=== PATIENT | male | born 1950 | race Caucasian/White ===

== ENCOUNTER 2017-06-10 15:13 | Inpatient (IN) | payer MEDICAID, MEDICARE ==
[~2017-06-10] VITALS: Ht 157.5 cm; Wt 90.7 kg
[~2017-06-10 15:13] MED LIST: BACITRACIN1 APPLIC TOPIC; BENADRYL50 MG ORAL; HYDROCORTISONE30 G2 TOPIC; IBUPROFEN600 MG PO; NYSTATIN CREAM15 GM TOPIC; PREDNISONE20 MG ORAL; VICODIN 5-5001 EACH PO
[2017-06-10 18:27] VITALS: BP 117/82
[2017-06-10 18:34] LABS: BASOPHILS % (AUTO) 0.4 % (0.0-2.0); EOSINOPHILS % (AUTO) 0.7 % (0.0-3.0); HEMATOCRIT 42.8 % (42.0-52.0); HEMOGLOBIN 14.5 G/DL (14.2-18.0); LYMPHOCYTES % (AUTO) 12.3 % (20.0-45.0); MEAN CORPUSCULAR VOLUME 93 FL (80-99); MONOCYTES % (AUTO) 6.1 % (1.0-10.0); NEUTROPHILS % (AUTO) 80.5 % (45.0-75.0); PLATELET COUNT 210 K/UL (150-450); RED BLOOD COUNT 4.58 M/UL (4.70-6.10); RED CELL DISTRIBUTION WIDTH 13.2 % (11.6-14.8); WHITE BLOOD COUNT 9.4 K/UL (4.8-10.8)
[2017-06-10 18:51] LABS: ANION GAP 7 mmol/L (5-15); BLOOD UREA NITROGEN 36 mg/dL (7-18); CALCIUM 8.1 MG/DL (8.5-10.1); CARBON DIOXIDE 27 MMOL/L (21-32); CHLORIDE 97 MMOL/L (98-107); POTASSIUM 5.2 MMOL/L (3.5-5.1); SODIUM 131 MMOL/L (136-145)
[2017-06-10] MEDS ORDERED: D5NS 1,000 ML IV SCH (19:00)
[2017-06-10 19:04] LABS: ALANINE AMINOTRANSFERASE 20 U/L (12-78); ALBUMIN 3.7 G/DL (3.4-5.0); ALBUMIN/GLOBULIN RATIO 0.9 (1.0-2.7); ALKALINE PHOSPHATASE 92 U/L (46-116); ASPARTATE AMINO TRANSFERASE 21 U/L (15-37); BILIRUBIN,TOTAL 0.6 MG/DL (0.2-1.0); CKMB 3.3 NG/ML (0.0-3.6); CREATINE KINASE 205 U/L (26-308)
[2017-06-10 19:40] VITALS: BP 118/62
[2017-06-10 21:25] VITALS: BP 123/68
--- NOTE | 2017-06-10 21:36 | Emergency Room Report ---
History of Present Illness General Chief Complaint: Abnormal Labs Source: Patient, EMS Present Illness HPI 66-year-old male presents ED for evaluation. Per EMS patient's Accu-Chek was low in the 30s. Was given glucose by EMS with Accu-Chek improved. In triage they Accu-Chek was then again low in the 50s. Patient states he is a diabetic and takes metformin. States he's been eating normally. No change in dosages. States he feels weak. Denies chest pain or shortness of breath. Denies fevers or chills. No other aggravating or relieving factors. Denies any other associated symptoms Allergies: Coded Allergies: No Known Allergies (Unverified , 12/26/12) Patient History Past Medical History: DM, HTN Past Surgical History: none Pertinent Family History: none Social History: Denies: smoking, alcohol use, drug use Immunizations: UTD Reviewed Nursing Documentation: PMH: Agreed, PSxH: Agreed Nursing Documentation-PMH Hx Cardiac Problems: Yes Hx Hypertension: Yes Hx Diabetes: Yes Hx Cerebrovascular Accident: No - CONFUSION Review of Systems All Other Systems: negative except mentioned in HPI Physical Exam Vital Signs Date Time Temp Pulse Resp B/P (MAP) Pulse Ox O2 Delivery O2 Flow Rate FiO2 06/10/17 15:08 97.2 60 18 131/75 98 Room Air Sp02 EP Interpretation: reviewed, normal General Appearance: no apparent distress, alert, GCS 15, non-toxic Head: normocephalic, atraumatic Eyes: bilateral eye normal inspection, bilateral eye PERRL ENT: hearing grossly normal, normal pharynx, no angioedema, normal voice Neck: full range of motion, supple/symm/no masses Respiratory: chest non-tender, lungs clear, normal breath sounds, speaking full sentences Cardiovascular #1: regular rate, rhythm, no edema Cardiovascular #2: 2+ carotid (R), 2+ carotid (L), 2+ radial (R), 2+ radial (L) , 2+ dorsalis pedis (R), 2+ dorsalis pedis (L) Gastrointestinal: normal bowel sounds, non tender, soft, non-distended, no guarding, no rebound Rectal: deferred Genitourinary: normal inspection, no CVA tenderness Musculoskeletal: back normal, gait/station normal, normal range of motion, non- tender Neurologic: alert, oriented x3, responsive, motor strength/tone normal, sensory intact, speech normal Psychiatric: judgement/insight normal, memory normal, mood/affect normal, no suicidal/homicidal ideation Reflexes: 3+ bicep (R), 3+ bicep (L), 3+ tricep (R), 3+ tricep (L), 3+ knee (R) , 3+ knee (L) Skin: normal color, no rash, warm/dry, well hydrated Lymphatic: no adenopathy Medical Decision Making Diagnostic Impression: Primary Impression: Hypoglycemia Additional Impression: Renal insufficiency ER Course Hospital Course 66-year-old female presenting to ED with generalized weakness, low FS in field Differential diagnoses include: dehyration, sepsis, hypoglycemia Clinical course Patient placed on stretcher. On monitor and storage bin tender. After initial history and physical I ordered labs, d50 Labs-glucose 54, BUN/Cr elevated, no leukocytosis, hb/hct stable Patient continues to become hypoglycemic after administration of medications and food. Patient started on D5 IV fluids. Case discussed with Dr. Funk and he agreed to accept the patient to his service for further care and support i. I feel this is a highly complex case requiring extensive working including EKG/Rhythm strip, Xray/CT/US, Blood/urine lab work, repeat exams while in ED, and administration of strong opiates/narcotics for pain control, admission to hospital or close patient follow up. diagnosis - hypoglycemia, renal insufficiency admitted to floor in serious condition Labs Test 06/10/17 18:20 White Blood Count 9.4 K/UL (4.8-10.8) Red Blood Count 4.58 M/UL (4.70-6.10) Hemoglobin 14.5 G/DL (14.2-18.0) Hematocrit 42.8 % (42.0-52.0) Mean Corpuscular Volume 93 FL (80-99) Mean Corpuscular Hemoglobin 31.6 PG (27.0-31.0) Mean Corpuscular Hemoglobin Concent 33.9 G/DL (32.0-36.0) Red Cell Distribution Width 13.2 % (11.6-14.8) Platelet Count 210 K/UL (150-450) Mean Platelet Volume 7.6 FL (6.5-10.1) Neutrophils (%) (Auto) 80.5 % (45.0-75.0) Lymphocytes (%) (Auto) 12.3 % (20.0-45.0) Monocytes (%) (Auto) 6.1 % (1.0-10.0) Eosinophils (%) (Auto) 0.7 % (0.0-3.0) Basophils (%) (Auto) 0.4 % (0.0-2.0) Sodium Level 131 MMOL/L (136-145) Potassium Level 5.2 MMOL/L (3.5-5.1) Chloride Level 97 MMOL/L (98-107) Carbon Dioxide Level 27 MMOL/L (21-32) Anion Gap 7 mmol/L (5-15) Blood Urea Nitrogen 36 mg/dL (7-18) Creatinine 2.0 MG/DL (0.55-1.30) Estimat Glomerular Filtration Rate 33.7 mL/min (>60) Glucose Level 54 MG/DL (74-106) Calcium Level 8.1 MG/DL (8.5-10.1) Total Bilirubin 0.6 MG/DL (0.2-1.0) Aspartate Amino Transf (AST/SGOT) 21 U/L (15-37) Alanine Aminotransferase (ALT/SGPT) 20 U/L (12-78) Alkaline Phosphatase 92 U/L (46-116) Total Creatine Kinase 205 U/L (26-308) Creatine Kinase MB 3.3 NG/ML (0.0-3.6) Creatine Kinase MB Relative Index 1.6 Troponin I 0.000 ng/mL (0.000-0.056) Total Protein 7.8 G/DL (6.4-8.2) Albumin 3.7 G/DL (3.4-5.0) Globulin 4.1 g/dL Albumin/Globulin Ratio 0.9 (1.0-2.7) EKG Diagnostic Results Rate: bradycardiac Rhythm: NSR ST Segments: no acute changes ASA given to the pt in ED: No Rhythm Strip Diag. Results EP Interpretation: yes Rhythm: NSR, no PVC's, no ectopy Chest X-Ray Diagnostic Results Chest X-Ray Diagnostic Results : Chest X-Ray Ordered: Yes # of Views/Limited/Complete: 1 View Indication: Other EP Interpretation: Yes Interpretation: no consolidation, no effusion, no pneumothorax, no acute cardiopulmonary disease Impression: No acute disease Electronically Signed by: Electronically signed by Celso Escalona MD Last Vital Signs Date Time Temp Pulse Resp B/P (MAP) Pulse Ox O2 Delivery O2 Flow Rate FiO2 06/10/17 21:25 60 14 123/68 100 Room Air 06/10/17 19:40 97.0 Status: improved Disposition: ADMITTED INPATIENT Condition: Serious Referrals: JOSE COOLEY (PCP) CELSO ESCALONA M.D. Jun 10, 2017 21:36
[2017-06-10] MEDS ORDERED: METFORMIN HCL850 M1 ORAL (22:15)
[2017-06-10] MEDS ORDERED: UNOBMED (22:15)
[2017-06-10] MEDS: D5NS 1,000 ML IV SCH (23:12)
[2017-06-11] VITALS (7 sets, daily range): BP systolic 100–132; BP diastolic 55–76
[2017-06-11] MEDS ORDERED: Zolpidem 5mg tab ORAL PRN (02:45)
[2017-06-11] MEDS: D5NS 1,000 ML IV SCH ×2 (02:59→15:09)
[2017-06-11] MEDS: NovoLOG Insulin Flexpen SUBQ SCH ×4 (06:25→20:23)
[2017-06-11 07:36] LABS: BASOPHILS % (AUTO) 0.2 % (0.0-2.0); EOSINOPHILS % (AUTO) 1.1 % (0.0-3.0); HEMATOCRIT 36.5 % (42.0-52.0); HEMOGLOBIN 12.4 G/DL (14.2-18.0); LYMPHOCYTES % (AUTO) 11.9 % (20.0-45.0); MEAN CORPUSCULAR VOLUME 92 FL (80-99); MONOCYTES % (AUTO) 7.2 % (1.0-10.0); NEUTROPHILS % (AUTO) 79.7 % (45.0-75.0); PLATELET COUNT 204 K/UL (150-450); RED BLOOD COUNT 3.95 M/UL (4.70-6.10); RED CELL DISTRIBUTION WIDTH 13.2 % (11.6-14.8); WHITE BLOOD COUNT 8.4 K/UL (4.8-10.8)
[2017-06-11 07:38] LABS: ANION GAP 6 mmol/L (5-15); BLOOD UREA NITROGEN 33 mg/dL (7-18); CALCIUM 7.5 MG/DL (8.5-10.1); CARBON DIOXIDE 29 MMOL/L (21-32); CHLORIDE 97 MMOL/L (98-107); CREATININE 1.7 MG/DL (0.55-1.30); POTASSIUM 4.3 MMOL/L (3.5-5.1); SODIUM 132 MMOL/L (136-145)
[2017-06-11] MEDS: Heparin 5000 units/ml inj SUBQ SCH ×2 (08:38→20:24)
--- NOTE | 2017-06-11 09:26 | History & Physical ---
History and Physical History & Physicial 66-year-old male presents with hypoglycemia with blood sugars down to the 30s. Was given glucose but blood sugars remained low. Patient states he is a diabetic and takes metformin and has been eating normally. No change in dosages at present time. States he feels weak on arrival but now improved. Denies chest pain or shortness of breath. Denies fevers or chills. No other aggravating or relieving factors. Denies any other associated symptoms. No recent acute illness Allergies: No Known Allergies (Unverified , 12/26/12) Past Medical History: DM, HTN Past Surgical History: none Pertinent Family History: none Social History: Denies: smoking, alcohol use, drug use Reviewed of systems: as above Physical WDWN NAD clear breath sounds bilaterally without rhonchi or wheeze [id number] without MRG NABS nontender no HSM no CCE nonfocal chronic skin changes and scratches Laboratory Tests Test 06/10/17 18:20 06/11/17 05:10 White Blood Count 9.4 K/UL (4.8-10.8) 8.4 K/UL (4.8-10.8) Red Blood Count 4.58 M/UL (4.70-6.10) L 3.95 M/UL (4.70-6.10) L Hemoglobin 14.5 G/DL (14.2-18.0) 12.4 G/DL (14.2-18.0) L Hematocrit 42.8 % (42.0-52.0) 36.5 % (42.0-52.0) L Mean Corpuscular Volume 93 FL (80-99) 92 FL (80-99) Mean Corpuscular Hemoglobin 31.6 PG (27.0-31.0) H 31.3 PG (27.0-31.0) H Mean Corpuscular Hemoglobin Concent 33.9 G/DL (32.0-36.0) 33.9 G/DL (32.0-36.0) Red Cell Distribution Width 13.2 % (11.6-14.8) 13.2 % (11.6-14.8) Platelet Count 210 K/UL (150-450) 204 K/UL (150-450) Mean Platelet Volume 7.6 FL (6.5-10.1) 7.9 FL (6.5-10.1) Neutrophils (%) (Auto) 80.5 % (45.0-75.0) H 79.7 % (45.0-75.0) H Lymphocytes (%) (Auto) 12.3 % (20.0-45.0) L 11.9 % (20.0-45.0) L Monocytes (%) (Auto) 6.1 % (1.0-10.0) 7.2 % (1.0-10.0) Eosinophils (%) (Auto) 0.7 % (0.0-3.0) 1.1 % (0.0-3.0) Basophils (%) (Auto) 0.4 % (0.0-2.0) 0.2 % (0.0-2.0) Sodium Level 131 MMOL/L (136-145) L 132 MMOL/L (136-145) L Potassium Level 5.2 MMOL/L (3.5-5.1) H 4.3 MMOL/L (3.5-5.1) Chloride Level 97 MMOL/L (98-107) L 97 MMOL/L (98-107) L Carbon Dioxide Level 27 MMOL/L (21-32) 29 MMOL/L (21-32) Anion Gap 7 mmol/L (5-15) 6 mmol/L (5-15) Blood Urea Nitrogen 36 mg/dL (7-18) H 33 mg/dL (7-18) H Creatinine 2.0 MG/DL (0.55-1.30) H 1.7 MG/DL (0.55-1.30) H Estimat Glomerular Filtration Rate 33.7 mL/min (>60) 40.7 mL/min (>60) Glucose Level 54 MG/DL (74-106) L 47 MG/DL (74-106) L Calcium Level 8.1 MG/DL (8.5-10.1) L 7.5 MG/DL (8.5-10.1) L Total Bilirubin 0.6 MG/DL (0.2-1.0) Aspartate Amino Transf (AST/SGOT) 21 U/L (15-37) Alanine Aminotransferase (ALT/SGPT) 20 U/L (12-78) Alkaline Phosphatase 92 U/L (46-116) Total Creatine Kinase 205 U/L (26-308) Creatine Kinase MB 3.3 NG/ML (0.0-3.6) Creatine Kinase MB Relative Index 1.6 Troponin I 0.000 ng/mL (0.000-0.056) Total Protein 7.8 G/DL (6.4-8.2) Albumin 3.7 G/DL (3.4-5.0) Globulin 4.1 g/dL Albumin/Globulin Ratio 0.9 (1.0-2.7) L IMPRESSION hypoglycemia diabetes hypertension chronic pruritis dizziness PLAN d5ns hold diabetic meds monitor as is resume home meds impression, plan, and exam edited and reviewed in detail care discussed with SONAL SORIA Jun 11, 2017 09:26
--- NOTE | 2017-06-11 11:55 | Diagnostic Imaging Report ---
Indication: Altered mental status Technique: XRAY Chest 1v Comparison: None Findings: Low lung volumes artifactually exaggerate heart size and vascular markings. Despite low lung volumes heart may be borderline enlarged. There is evidence of prior coronary arterial stenting. There is no definite focal consolidation. No pleural effusion. No pneumothorax. Multilevel degenerative changes seen in the thoracic spine. No acute osseous abnormality seen. Impression: Limited exam as low lung volumes. Question mild cardiomegaly and pulmonary vascular congestion. Consider repeat exam with improved inspiratory effort for more a labral assessment. Evidence of prior coronary arterial stenting. No definite focal consolidation. Study obtained via the emergency department however patient admitted to the hospital at time of final dictation.
[2017-06-11] MEDS ORDERED: D5NS 1,000 ML IV SCH (19:00)
[2017-06-12] VITALS: BP 128/73
[2017-06-12] MEDS: D5NS 1,000 ML IV SCH ×2 (01:18→14:45)
[2017-06-12 04:00] VITALS: BP 145/98
[2017-06-12] MEDS: NovoLOG Insulin Flexpen SUBQ SCH ×2 (06:22→11:30)
[2017-06-12 08:00] VITALS: BP 135/71
[2017-06-12] MEDS: Heparin 5000 units/ml inj SUBQ SCH (08:11)
--- NOTE | 2017-06-12 08:51 | General Progress Note ---
Assessment/Plan Assessment/Plan IMPRESSION hypoglycemia diabetes hypertension chronic pruritis dizziness PLAN d5ns- dc hold diabetic meds on discharge arrange transport monitor as is dc today if able to ambulate adequately with home health impression, plan, and exam edited and reviewed in detail care discussed with RN Subjective Allergies: Coded Allergies: No Known Allergies (Unverified , 12/26/12) Subjective care noted no acute changes overnight Objective Last 24 Hour Vital Signs Date Time Temp Pulse Resp B/P (MAP) Pulse Ox O2 Delivery O2 Flow Rate FiO2 06/12/17 04:00 98.0 78 21 145/98 96 06/12/17 04:00 Room Air 06/12/17 02:37 97.9 06/12/17 00:00 97.9 78 21 128/73 97 06/12/17 00:00 Room Air 06/11/17 20:00 97.9 74 20 119/65 95 Room Air 06/11/17 20:00 Room Air 06/11/17 16:00 97.7 74 20 132/74 96 Room Air 06/11/17 12:00 97.7 76 20 125/74 98 Room Air Intake and Output 06/11/17 06/12/17 19:00 07:00 Intake Total 1550 ml 1300 ml Balance 1550 ml 1300 ml Intake Oral 750 ml 100 ml IV Total 800 ml 1200 ml # Voids 3 4 Height (Feet): 5 Height (Inches): 2.00 Weight (Pounds): 200 Objective WDWN NAD clear breath sounds bilaterally without rhonchi or wheeze [id number] without MRG NABS nontender no HSM no CCE nonfocal chronic skin changes SONAL MILLER Jun 12, 2017 08:51
[2017-06-12 12:00] VITALS: BP 137/82
[2017-06-12] MEDS ORDERED: D5 1/2NS 1000ml IV ONE (14:36)
[2017-06-12] MEDS ORDERED: D5NS 1000ml IV ONE (14:36)
[2017-06-12 16:00] VITALS: BP 158/100
--- NOTE | 2017-06-13 14:56 | Discharge Summary ---
Discharge Summary Hospital Course Date of Admission Jun 10, 2017 at 18:11 Date of Discharge Jun 12, 2017 at 16:00 Admitting Diagnosis hypoglycemia HPI Adrián Mg is a 67 year old male who was admitted on Jun 10, 2017 at 18:11 for Hypoglycemia Hospital Course dc summary #[id number] Discharge Medications Continued Medications: Diphenhydramine HCl (Diphenhydramine HCl) 50 Mg Cap 50 MG ORAL Q6H PRN for Itching, #30 CAP Discharge Discharge Disposition Patient was discharged to Home with Home Health(06) Discharge Diagnoses: Discharge Instructions Discharge Instructions Special Instructions I have been assigned to complete a D/C Summary on this account. I was not involved in the patient management Petrona Bejarano NP ([facility]) Jun 13, 2017 14:56
--- NOTE | 2017-06-14 04:45 | Discharge Summary 2 SIG ---
DATE OF ADMISSION: 06/10/2017 DATE OF DISCHARGE: 06/12/2017 REASON FOR ADMISSION: 67-year-old male presented to the emergency room for evaluation. Per condenser tube tender Accu-Chek was low in the 30s in the field. Glucose was given by paramedics. Accu-Chek improved. In triage, blood sugar was again down to 50s. The patient reported that he had a history of diabetes and he was taking metformin. The patient did not report any recent changes in eating habits. No change in dosage in anti- glycemic medications. He felt weak, no diaphoresis. He denied chest pain or shortness of breath. Denied fever or chills. Workup in the emergency room revealed stable vital signs. No leukocytosis. Stable hemoglobin and hematocrit. Glucose was 54 and laboratory workup revealed evidence of renal insufficiency with BUN - 36 and creatinine - 2.0. Troponin negative. EKG revealed sinus bradycardia with a heart rate of 58. Chest x-ray revealed no acute cardiopulmonary disease. The patient was admitted for further management with diagnoses of hypoglycemia, history of diabetes, renal insufficiency, hypertension, and chronic pruritus. HOSPITAL COURSE: The patient was admitted. The patient started on IV fluids wit dextrose. Oral anti-glycemics were placed on hold. Renal parameters and electrolytes were closely monitored. Nephrotoxics were avoided. Home medications were resumed. Blood pressure was managed with clonidine on as needed basis. Prior to discharge, blood sugar stabilized. Blood pressure was stable. Creatinine down to 1.7 from initial 2.0. BUN down to 33. The patient needs further workup as outpatient for renal insufficiency, acute versus chronic. Hyperkalemia (initially -) resolved after treatment. Troponin was negative. DVT prophylaxis provided. GI prophylaxis provided. Bowel regimen instituted. Benadryl was given symptomatically. The patient was stable for discharge. FINAL DIAGNOSES: 1. Hypoglycemia. 2. Renal insufficiency. 3. Diabetes mellitus. 4. Hypertension. 5. Chronic pruritus. DISCHARGE MEDICATIONS: See medication reconciliation list. DISCHARGE INSTRUCTIONS: The patient was discharged home with home health services. Follow up with primary medical doctor this week. Boston Morse M.D. I have been assigned to dictate discharge summary on this account and I was not involved in the patient's management. Petrona TejadaAudi malone DR: RAKESH JOB#: [id number] CC: JACK
--- NOTE | 2017-06-14 19:27 | Cardiology Report ---
APPROVED REPORT EKG Measurement Heart [id number] Sinus bradycardia Low voltage QRS Borderline ECG
== END 2017-06-12 16:00 | disposition home health service (06) | DRG 420 ==
LOC: EDBD 15:13 → EMR 15:45 → OBSVTOIN 18:11 → 4E 18:11 → EDBEDREQ 19:19 → 4E 06-11 20:25
DX: E11.649 Type 2 diabetes mellitus with hypoglycemia without coma (principal); N28.9 Disorder of kidney and ureter, unspecified; I10 Essential (primary) hypertension; L29.9 Pruritus, unspecified; Z79.84 Long term (current) use of oral hypoglycemic drugs; R41.0 Disorientation, unspecified
CPT/HCPCS: 36415; 71010; 80048; 80053; 82550; 82553; 82962; 84484; 85025; 93005; 96360; 96361; 96374; 99285; J1815; J2405

== ENCOUNTER 2018-12-23 22:35 | Inpatient (IN) | payer MEDICARE, MEDICAID ==
[~2018-12-23] VITALS: Ht 167.6 cm; Wt 65.8 kg
[~2018-12-23 22:35] MED LIST changes: +METFORMIN HCL850 M1 ORAL; +UNOBMED
[2018-12-23] MEDS ORDERED: CICLOPIROX 8%34.6 ML TP (22:44)
[2018-12-23] MEDS ORDERED: JENTADUETO 2.51 EAC2 PO (22:44)
[2018-12-23] MEDS ORDERED: DOCUSATE SODIU250 MG ORAL (22:44)
[2018-12-23] MEDS ORDERED: CLOPIDOGREL75 MG ORAL (22:44)
[2018-12-23] MEDS ORDERED: MAPAP500 M2 PO (22:44)
[2018-12-23] MEDS ORDERED: FLUTICASONE PRO16 G1 NASAL (22:44)
[2018-12-23] MEDS ORDERED: INVOKANA100 MG PO (22:44)
[2018-12-23] MEDS ORDERED: METOPROLOL SUCC50 MG ORAL (22:44)
[2018-12-23] MEDS ORDERED: FLOMAX0.4 MG ORAL (22:44)
[2018-12-23] MEDS ORDERED: TRAZODONE HCL150 MG ORAL (22:44)
[2018-12-23] MEDS ORDERED: CLOTRIMAZOLE15 GM TOPIC (22:44)
[2018-12-23] MEDS ORDERED: LINZESS290 MCG PO (22:44)
[2018-12-23] MEDS ORDERED: ABILIFY10 MG ORAL (22:44)
[2018-12-23] MEDS ORDERED: GLIPIZIDE5 MG ORAL (22:44)
[2018-12-23] MEDS ORDERED: ATORVASTATIN CA40 MG ORAL (22:44)
[2018-12-23] MEDS ORDERED: URECHOLINE25 M1 ORAL (22:44)
[2018-12-23] MEDS ORDERED: BISACODYL5 MG ORAL (22:44)
[2018-12-23] MEDS ORDERED: LISINOPRIL20 MG ORAL (22:44)
[2018-12-23] MEDS ORDERED: ZANTAC150 MG ORAL (22:44)
[2018-12-23] MEDS ORDERED: PHENAZOPYRIDIN200 MG ORAL (22:44)
[2018-12-23] MEDS ORDERED: MELATONIN5 MG/15 ML PO (22:44)
--- NOTE | 2018-12-23 22:47 | NUR ---
ED Nurse Note: Patient presents with complaints of cough and sore throat along with headache.
[2018-12-23 22:48] VITALS: BP 149/73
--- NOTE | 2018-12-23 23:21 | Emergency Room Report ---
History of Present Illness General Chief Complaint: Flu Like Symptoms Source: Patient Present Illness HPI Patient presents from nursing facility with complaints of cough and congestion Patient was reported to be short of breath over the past several days Denies any headache denies any chest pain Unknown regarding fevers patient denies any rash Appears to be somewhat debilitated having difficulty moving his lower extremities Denies any recent trauma Allergies: Coded Allergies: No Known Allergies (Unverified , 12/26/12) Patient History Past Medical History: see triage record Reviewed Nursing Documentation: PMH: Agreed; PSxH: Agreed Nursing Documentation-PMH Past Medical History: No History, Except For Hx Cardiac Problems: Yes Hx Hypertension: Yes Hx Diabetes: Yes Hx Cancer: No Hx Gastrointestinal Problems: Yes - vomiting Hx Cerebrovascular Accident: No - CONFUSION Review of Systems All Other Systems: negative except mentioned in HPI Physical Exam Vital Signs Date Time Temp Pulse Resp B/P (MAP) Pulse Ox O2 Delivery O2 Flow Rate FiO2 12/23/18 22:31 100.2 96 16 149/73 (98) 94 Room Air Sp02 EP Interpretation: reviewed, normal General Appearance: well appearing, no apparent distress Head: atraumatic, other - microcephalic Eyes: bilateral eye PERRL, bilateral eye EOMI ENT: hearing grossly normal, normal pharynx, TMs + canals normal, uvula midline Neck: full range of motion, supple, no meningismus, no bony tend Respiratory: no respiratory distress, no retraction, no accessory muscle use, crackles - bilaterally Cardiovascular #1: normal peripheral pulses, regular rate, rhythm, no gallop, no JVD, no murmur Gastrointestinal: normal bowel sounds, non tender, soft, no mass, no organomegaly, non-distended, no guarding, no hernia, no pulsatile mass, no rebound Genitourinary: no CVA tenderness Musculoskeletal: other - Equal diamond die polisher both upper extremity Neurologic: responsive - To physical stimuli, sensory intact Psychiatric: mood/affect normal Skin: no rash, other - Edema however noted on both hands lower lip and both lower extremity Lymphatic: normal inspection, no adenopathy Medical Decision Making Diagnostic Impression: Primary Impression: Dyspnea ER Course Patient is a fairly complex patient with multiple differential to consideration including but not limited to cardiac cardiopulmonary and vascular emergencies Patient's x-ray shows abnormal findings given the clinical history of edema as well consideration for CHF is made Patient does also have a cough and fever raising concern of possible infectious etiology patient has a mixed picture requires more acute intervention and admitted for further care Labs Test 12/24/18 00:51 12/24/18 01:41 12/24/18 06:14 12/25/18 06:20 White Blood Count 10.3 K/UL (4.8-10.8) 7.1 K/UL (4.8-10.8) Red Blood Count 2.87 M/UL (4.70-6.10) 2.83 M/UL (4.70-6.10) Hemoglobin 9.1 G/DL (14.2-18.0) 8.9 G/DL (14.2-18.0) Hematocrit 27.2 % (42.0-52.0) 27.3 % (42.0-52.0) Mean Corpuscular Volume 95 FL (80-99) 96 FL (80-99) Mean Corpuscular Hemoglobin 31.6 PG (27.0-31.0) 31.5 PG (27.0-31.0) Mean Corpuscular Hemoglobin Concent 33.4 G/DL (32.0-36.0) 32.7 G/DL (32.0-36.0) Red Cell Distribution Width 12.4 % (11.6-14.8) 12.6 % (11.6-14.8) Platelet Count 194 K/UL (150-450) 168 K/UL (150-450) Mean Platelet Volume 5.5 FL (6.5-10.1) 6.6 FL (6.5-10.1) Neutrophils (%) (Auto) 83.9 % (45.0-75.0) 71.3 % (45.0-75.0) Lymphocytes (%) (Auto) 7.7 % (20.0-45.0) 16.0 % (20.0-45.0) Monocytes (%) (Auto) 7.7 % (1.0-10.0) 10.6 % (1.0-10.0) Eosinophils (%) (Auto) 0.2 % (0.0-3.0) 1.2 % (0.0-3.0) Basophils (%) (Auto) 0.4 % (0.0-2.0) 0.9 % (0.0-2.0) Sodium Level 134 MMOL/L (136-145) 135 MMOL/L (136-145) 138 MMOL/L (136-145) Potassium Level 3.7 MMOL/L (3.5-5.1) 3.6 MMOL/L (3.5-5.1) 3.5 MMOL/L (3.5-5.1) Chloride Level 96 MMOL/L (98-107) 99 MMOL/L (98-107) 99 MMOL/L (98-107) Carbon Dioxide Level 30 MMOL/L (21-32) 31 MMOL/L (21-32) 32 MMOL/L (21-32) Anion Gap 8 mmol/L (5-15) 5 mmol/L (5-15) 7 mmol/L (5-15) Blood Urea Nitrogen 21 mg/dL (7-18) 21 mg/dL (7-18) 16 mg/dL (7-18) Creatinine 2.9 MG/DL (0.55-1.30) 3.1 MG/DL (0.55-1.30) 2.8 MG/DL (0.55-1.30) Estimat Glomerular Filtration Rate 21.8 mL/min (>60) 20.2 mL/min (>60) 22.7 mL/min (>60) Glucose Level 238 MG/DL (74-106) 237 MG/DL (74-106) 138 MG/DL (74-106) Lactic Acid Level 1.50 mmol/L (0.4-2.0) Calcium Level 8.1 MG/DL (8.5-10.1) 8.4 MG/DL (8.5-10.1) 8.5 MG/DL (8.5-10.1) Total Bilirubin 0.6 MG/DL (0.2-1.0) 0.6 MG/DL (0.2-1.0) Aspartate Amino Transf (AST/SGOT) 25 U/L (15-37) 19 U/L (15-37) Alanine Aminotransferase (ALT/SGPT) 23 U/L (12-78) 21 U/L (12-78) Alkaline Phosphatase 141 U/L (46-116) 125 U/L (46-116) Total Creatine Kinase 264 U/L (26-308) Creatine Kinase MB 0.7 NG/ML (0.0-3.6) Creatine Kinase MB Relative Index 0.2 Troponin I 0.011 ng/mL (0.000-0.056) 0.015 ng/mL (0.000-0.056) Pro-B-Type Natriuretic Peptide 2769 pg/mL (0-125) 3383 pg/mL (0-125) Total Protein 6.2 G/DL (6.4-8.2) 6.6 G/DL (6.4-8.2) Albumin 3.5 G/DL (3.4-5.0) 3.0 G/DL (3.4-5.0) Globulin 2.7 g/dL 3.6 g/dL Albumin/Globulin Ratio 1.3 (1.0-2.7) 0.8 (1.0-2.7) Lipase 68 U/L (73-393) Urine Color Pale yellow Urine Appearance Slightly cloudy Urine pH 6 (4.5-8.0) Urine Specific Proctor 1.015 (1.005-1.035) Urine Protein 2+ (NEGATIVE) Urine Glucose (UA) Negative (NEGATIVE) Urine Ketones Negative (NEGATIVE) Urine Blood 2+ (NEGATIVE) Urine Nitrite Positive (NEGATIVE) Urine Bilirubin Negative (NEGATIVE) Urine Urobilinogen Normal MG/DL (0.0-1.0) Urine Leukocyte Esterase 2+ (NEGATIVE) Urine RBC 20-30 /HPF (0 - 0) Urine WBC 10-15 /HPF (0 - 0) Urine Squamous Epithelial Cells None /LPF (NONE/OCC) Urine Bacteria Moderate /HPF (NONE) Hepatitis B Surface Antigen Negative (NEGATIVE) Test 12/26/18 05:46 White Blood Count 4.3 K/UL (4.8-10.8) Red Blood Count 2.74 M/UL (4.70-6.10) Hemoglobin 8.7 G/DL (14.2-18.0) Hematocrit 26.5 % (42.0-52.0) Mean Corpuscular Volume 97 FL (80-99) Mean Corpuscular Hemoglobin 31.7 PG (27.0-31.0) Mean Corpuscular Hemoglobin Concent 32.9 G/DL (32.0-36.0) Red Cell Distribution Width 12.4 % (11.6-14.8) Platelet Count 158 K/UL (150-450) Mean Platelet Volume 6.5 FL (6.5-10.1) Neutrophils (%) (Auto) 60.9 % (45.0-75.0) Lymphocytes (%) (Auto) 19.6 % (20.0-45.0) Monocytes (%) (Auto) 14.1 % (1.0-10.0) Eosinophils (%) (Auto) 4.0 % (0.0-3.0) Basophils (%) (Auto) 1.3 % (0.0-2.0) Sodium Level 138 MMOL/L (136-145) Potassium Level 3.3 MMOL/L (3.5-5.1) Chloride Level 99 MMOL/L (98-107) Carbon Dioxide Level 33 MMOL/L (21-32) Anion Gap 6 mmol/L (5-15) Blood Urea Nitrogen 24 mg/dL (7-18) Creatinine 3.5 MG/DL (0.55-1.30) Estimat Glomerular Filtration Rate 17.6 mL/min (>60) Glucose Level 109 MG/DL (74-106) Calcium Level 8.0 MG/DL (8.5-10.1) Rhythm Strip Diag. Results EP Interpretation: yes Rate: 78 Rhythm: NSR, no PVC's, no ectopy Chest X-Ray Diagnostic Results Chest X-Ray Diagnostic Results : Chest X-Ray Ordered: Yes # of Views/Limited/Complete: 1 View Indication: Shortness of Breath EP Interpretation: Yes Interpretation: no pneumothorax, other - Pulmonary congestion, question infiltrate, Impression: Other - Bilateral markings, congestion versus infiltrate Electronically Signed by: Stephanie Estrada DO Last Vital Signs Date Time Temp Pulse Resp B/P (MAP) Pulse Ox O2 Delivery O2 Flow Rate FiO2 12/23/18 22:48 96 16 Room Air 12/23/18 22:48 100.2 149/73 94 Status: improved Disposition: ADMITTED INPATIENT Condition: Serious Stephanie Estrada DO Dec 23, 2018 23:21
[2018-12-24] VITALS (7 sets, daily range): BP systolic 112–129; BP diastolic 62–68
--- NOTE | 2018-12-24 00:43 | NUR ---
ED Nurse Note: Patient blood drawn and sent to lab.
[2018-12-24 01:02] LABS: BASOPHILS % (AUTO) 0.4 % (0.0-2.0); EOSINOPHILS % (AUTO) 0.2 % (0.0-3.0); HEMATOCRIT 27.2 % (42.0-52.0); HEMOGLOBIN 9.1 G/DL (14.2-18.0); LYMPHOCYTES % (AUTO) 7.7 % (20.0-45.0); MEAN CORPUSCULAR VOLUME 95 FL (80-99); MONOCYTES % (AUTO) 7.7 % (1.0-10.0); NEUTROPHILS % (AUTO) 83.9 % (45.0-75.0); PLATELET COUNT 194 K/UL (150-450); RED BLOOD COUNT 2.87 M/UL (4.70-6.10); RED CELL DISTRIBUTION WIDTH 12.4 % (11.6-14.8); WHITE BLOOD COUNT 10.3 K/UL (4.8-10.8)
[2018-12-24 01:14] LABS: ANION GAP 8 mmol/L (5-15); BLOOD UREA NITROGEN 21 mg/dL (7-18); CALCIUM 8.1 MG/DL (8.5-10.1); CARBON DIOXIDE 30 MMOL/L (21-32); CHLORIDE 96 MMOL/L (98-107); CREATININE 2.9 MG/DL (0.55-1.30); POTASSIUM 3.7 MMOL/L (3.5-5.1); SODIUM 134 MMOL/L (136-145)
--- NOTE | 2018-12-24 01:15 | NUR ---
ED Nurse Note: Patient foly Addendum: 12/24/18 at 0550 by LIBBY ED Nurse Note: Patient's walsh emptied, patient tolerated medication well. Patient sleeping, slightly tachycardic and warm to touch. Will continue to monitor.
[2018-12-24 01:28] LABS: ALANINE AMINOTRANSFERASE 23 U/L (12-78); ALBUMIN 3.5 G/DL (3.4-5.0); ALBUMIN/GLOBULIN RATIO 1.3 (1.0-2.7); ALKALINE PHOSPHATASE 141 U/L (46-116); ASPARTATE AMINO TRANSFERASE 25 U/L (15-37); BILIRUBIN,TOTAL 0.6 MG/DL (0.2-1.0); CKMB 0.7 NG/ML (0.0-3.6); CREATINE KINASE 264 U/L (26-308)
[2018-12-24] MEDS ORDERED: Acetaminophen 650 MG SUPP RECTAL ONE ×2 (01:39→01:45)
[2018-12-24] MEDS ORDERED: cefTRIAXone 1 GM in D5W 55 ML IVPB ONE (01:45)
[2018-12-24] MEDS ORDERED: Promethazine/Codeine 5ml UD ORAL ONE (01:45)
[2018-12-24] MEDS ORDERED: Albuterol ud Inhalation HHN ONE (01:45)
--- NOTE | 2018-12-24 01:45 | NUR ---
ED Nurse Note: Patient febrile, ERMd informed, medication given. patient repositioned and evaluated by ERMD. RT to give a breathing treatment.
--- NOTE | 2018-12-24 02:04 | NUR ---
ED Nurse Note: Called to give report to Chantell, patient to finish breathing treatment prior to transport to floor. Swabs collected, belonging sheet completed
[2018-12-24 02:09] LABS: BILIRUBIN, URINE NEGATIVE (NEGATIVE); COLOR,URINE PALE YELLOW; GLUCOSE, URINE (UA) NEGATIVE (NEGATIVE); KETONES,URINE NEGATIVE (NEGATIVE); NITRITE,URINE POSITIVE (NEGATIVE); PH,URINE 6 (4.5-8.0); PROTEIN,URINE 2+ (NEGATIVE); UROBILINOGEN,URINE NORMAL MG/DL (0.0-1.0)
[2018-12-24 02:29] LABS: APPEARANCE,URINE SLIGHTLY CLOUDY; LEUKOCYTE ESTERASE ,URINE 2+ (NEGATIVE)
--- NOTE | 2018-12-24 02:30 | NUR ---
ED Nurse Note: Patient transported to floor by animal laboratory technician and RN without incident.
--- NOTE | 2018-12-24 02:40 | NUR ---
NURSE NOTES: Received pt from ED via gurney. Pt transferred to [facility] [place] without any incident. Pt is A/Ox2-3. Marland pt to room, unit, and hospital policies. Received report from TAYLOR May. Pt came from [facility] with a Tim. Pt has a Lt upper chest Permacath for HD. residential monitor is in placed; pt is NSR. IV site intact, asymptomatic, and patent. Bed is in the lowest position and locked. Call light within reach. No signs/symptoms of acute distress noted at this time. Will contact Dr. Best for admission orders.
--- NOTE | 2018-12-24 03:15 | NUR ---
NURSE NOTES: Contacted Dr. Best for admission orders. Awaiting call back.
--- NOTE | 2018-12-24 04:31 | NUR ---
NURSE NOTES: Received orders from Dr. Best. Will note and carry out.
[2018-12-24] MEDS ORDERED: Albuterol/Ipratropium 3ml neb HHN PRN (05:30)
[2018-12-24] MEDS: NovoLOG Insulin Flexpen SUBQ SCH ×4 (06:55→21:13)
[2018-12-24 07:14] LABS: ALANINE AMINOTRANSFERASE 21 U/L (12-78); ALBUMIN/GLOBULIN RATIO 0.8 (1.0-2.7); ALKALINE PHOSPHATASE 125 U/L (46-116); ANION GAP 5 mmol/L (5-15); ASPARTATE AMINO TRANSFERASE 19 U/L (15-37); BILIRUBIN,TOTAL 0.6 MG/DL (0.2-1.0); BLOOD UREA NITROGEN 21 mg/dL (7-18); CALCIUM 8.4 MG/DL (8.5-10.1); CARBON DIOXIDE 31 MMOL/L (21-32); CHLORIDE 99 MMOL/L (98-107); CREATININE 3.1 MG/DL (0.55-1.30); POTASSIUM 3.6 MMOL/L (3.5-5.1); SODIUM 135 MMOL/L (136-145)
--- NOTE | 2018-12-24 07:47 | NUR ---
HAND-OFF: Report given to TAYLOR Rebolledo.
--- NOTE | 2018-12-24 07:48 | NUR ---
NURSE NOTES: Received report from TAYLOR Abdul. Patient is resting in bed, sleeping in high sutton position. patient in stable condition with no niharika and symptoms of acute distress at this time. Breathing is unlabored with 2 liter Nasal cannula. Bed is in lowest position with two side rails up, brakes engaged . Call light and bed side table are within reach. Will continue plan of care.
--- NOTE | 2018-12-24 08:10 | NUR ---
CASE MANAGEMENT: INITIAL REVIEW 68 YO M RIGOBERTO FROM [facility] CC: FLU LIKE SYMPTOMS PMHx: HTN. DM. SI:DYSPNEA T 100.2 HR 96 RR 16 B/P 149/73 SATS 94% ON RA NA 134 CL 96 BUN 21 CR 2.9 GLU 238 CA 8.1 ALP 141 BNP 2769 LIPASE 68 IS: LASIX IV X1 TYLENOL REC X1 PHENERGAN W/ CODEINE PO X1 CEFTRIAXONE IV X1 PROVENTIL HHN X1 PATIENT ADMITTED TO TELE 12/23/2018 @ 2340 DCP: PATIENT TO BE DISCHARGED TO HOME ONCE MEDICALLY CLEARED. 12/24/2018 SI:DYSPNEA. T 100.2 HR 115 RR 12 B/P 127/67 SATS 98% ON SIMPLE MASK 2L NA 135 BUN 21 CR 3.1 GLU 237 CA 8.4 ALP 125 IS:LIPITOR PO QHS TRAZODONE PO QHS PEPCID PO BID LASIX PO QD PLAVIX PO QD LISINOPRIL PO QD FLOMAX PO QD INSULIN ASPART SUBQ AC/HS CEFTRIAXONE IV Q24H METFORMIN PO TID TELE STATUS PLAN OF CARE: CARDIO EVAL Addendum: 12/24/18 at 0821 by Kassidy Black CM INTERQUAL MET
[2018-12-24] MEDS ORDERED: Furosemide 40mg tab ORAL SCH (09:00)
[2018-12-24] MEDS: Flonase Nasal Inhaler 16gm NASAL SCH (09:31)
[2018-12-24] MEDS: Tamsulosin 0.4mg cap ORAL SCH (09:32)
[2018-12-24] MEDS: Lisinopril 20mg tab ORAL SCH (09:32)
[2018-12-24] MEDS: Docusate 250mg cap ORAL SCH ×2 (09:32→18:52)
[2018-12-24] MEDS: Bisacodyl EC 5mg tab ORAL SCH (09:32)
[2018-12-24] MEDS: ARIPiprazole 10mg tab ORAL SCH (09:35)
[2018-12-24] MEDS: Bethanechol 25mg Tab ORAL SCH ×3 (09:36→18:53)
[2018-12-24] MEDS: Metoprolol Succinate XL 50mg tab ORAL SCH (09:36)
[2018-12-24] MEDS: Promethazine/DM 6.25mg/5ml ORAL PRN (12:00)
--- NOTE | 2018-12-24 13:08 | Diagnostic Imaging Report ---
Indication: Shortness of breath Technique: One view of the chest Comparison: 06/10/2017 Findings: Patient's chin obscures the upper mediastinum. Interim development of fairly extensive interstitial and airspace disease, predominantly the former. Interim placement of left jugular tunneled dialysis catheter. The heart size is normal. Impression: Bilateral diffuse interstitial and airspace disease-infiltrates versus edema
[2018-12-24] MEDS ORDERED: Ertapenem 1 GM in NS 55 ML IVPB ONE (14:00)
--- NOTE | 2018-12-24 14:12 | Infectious Diseases Prog Note ---
Assessment/Plan Problems: (1) HCAP (healthcare-associated pneumonia) Assessment & Plan: with cough, SOB, and high fever will start meropenem and vancomycin empirically, and send sputum culture . aspiration precaution (2) Catheter-associated urinary tract infection Assessment & Plan: will start meropenem and vancomycin empirically pending urine culture, may need to change walsh catheter (3) Sepsis Assessment & Plan: due to the above, continue wide spectrum antibiotics pending cultures (4) Fever Assessment & Plan: due to the above, continue antibiotics and tylenol as needed (5) ESRD (end stage renal disease) on dialysis Assessment & Plan: has left perm A cath , with clean site and no sign of local infection , continue HD as per renal Subjective Allergies: Coded Allergies: No Known Allergies (Unverified , 12/26/12) Objective Vital Signs Last 24 Hour Vital Signs Date Time Temp Pulse Resp B/P (MAP) Pulse Ox O2 Delivery O2 Flow Rate FiO2 12/24/18 12:00 101.2 82 18 112/68 (83) 95 12/24/18 10:12 101.0 12/24/18 09:36 82 127/66 12/24/18 09:32 127/66 12/24/18 09:00 Nasal Cannula 2.0 12/24/18 08:00 101.2 82 20 127/66 (86) 97 12/24/18 08:00 74 12/24/18 07:20 89 18 91 Room Air 21 12/24/18 04:00 92 12/24/18 04:00 99.8 84 20 113/65 (81) 96 12/24/18 02:59 Nasal Cannula 2.0 12/24/18 02:52 86 12/24/18 02:45 100.2 79 20 115/66 (82) 98 12/24/18 02:30 100.0 115 12 127/67 98 Simple Mask 2.0 28 12/24/18 02:15 100.0 12/24/18 02:07 100.0 115 12 127/67 98 Simple Mask 12/24/18 01:59 113 18 98 Nasal Cannula 2.0 28 12/24/18 01:37 102.8 12/23/18 22:48 96 16 Room Air 12/23/18 22:48 100.2 89 16 149/73 94 Room Air 12/23/18 22:31 100.2 96 16 149/73 (98) 94 Room Air Height (Feet): 5 Height (Inches): 6.00 Weight (Pounds): 148 Microbiology Date/Time Source Procedure Growth Status 12/24/18 01:57 Rectum Received Laboratory Tests Test 12/24/18 00:51 12/24/18 01:41 12/24/18 06:14 White Blood Count 10.3 K/UL (4.8-10.8) Red Blood Count 2.87 M/UL (4.70-6.10) L Hemoglobin 9.1 G/DL (14.2-18.0) L Hematocrit 27.2 % (42.0-52.0) L Mean Corpuscular Volume 95 FL (80-99) Mean Corpuscular Hemoglobin 31.6 PG (27.0-31.0) H Mean Corpuscular Hemoglobin Concent 33.4 G/DL (32.0-36.0) Red Cell Distribution Width 12.4 % (11.6-14.8) Platelet Count 194 K/UL (150-450) Mean Platelet Volume 5.5 FL (6.5-10.1) L Neutrophils (%) (Auto) 83.9 % (45.0-75.0) H Lymphocytes (%) (Auto) 7.7 % (20.0-45.0) L Monocytes (%) (Auto) 7.7 % (1.0-10.0) Eosinophils (%) (Auto) 0.2 % (0.0-3.0) Basophils (%) (Auto) 0.4 % (0.0-2.0) Sodium Level 134 MMOL/L (136-145) L 135 MMOL/L (136-145) L Potassium Level 3.7 MMOL/L (3.5-5.1) 3.6 MMOL/L (3.5-5.1) Chloride Level 96 MMOL/L (98-107) L 99 MMOL/L (98-107) Carbon Dioxide Level 30 MMOL/L (21-32) 31 MMOL/L (21-32) Anion Gap 8 mmol/L (5-15) 5 mmol/L (5-15) Blood Urea Nitrogen 21 mg/dL (7-18) H 21 mg/dL (7-18) H Creatinine 2.9 MG/DL (0.55-1.30) H 3.1 MG/DL (0.55-1.30) H Estimat Glomerular Filtration Rate 21.8 mL/min (>60) 20.2 mL/min (>60) Glucose Level 238 MG/DL (74-106) H 237 MG/DL (74-106) H Lactic Acid Level 1.50 mmol/L (0.4-2.0) Calcium Level 8.1 MG/DL (8.5-10.1) L 8.4 MG/DL (8.5-10.1) L Total Bilirubin 0.6 MG/DL (0.2-1.0) 0.6 MG/DL (0.2-1.0) Aspartate Amino Transf (AST/SGOT) 25 U/L (15-37) 19 U/L (15-37) Alanine Aminotransferase (ALT/SGPT) 23 U/L (12-78) 21 U/L (12-78) Alkaline Phosphatase 141 U/L (46-116) H 125 U/L (46-116) H Total Creatine Kinase 264 U/L (26-308) Creatine Kinase MB 0.7 NG/ML (0.0-3.6) Creatine Kinase MB Relative Index 0.2 Troponin I 0.011 ng/mL (0.000-0.056) Pro-B-Type Natriuretic Peptide 2769 pg/mL (0-125) H Total Protein 6.2 G/DL (6.4-8.2) L 6.6 G/DL (6.4-8.2) Albumin 3.5 G/DL (3.4-5.0) 3.0 G/DL (3.4-5.0) L Globulin 2.7 g/dL 3.6 g/dL Albumin/Globulin Ratio 1.3 (1.0-2.7) 0.8 (1.0-2.7) L Lipase 68 U/L (73-393) L Urine Color Pale yellow Urine Appearance Slightly cloudy Urine pH 6 (4.5-8.0) Urine Specific [place] 1.015 (1.005-1.035) Urine Protein 2+ (NEGATIVE) H Urine Glucose (UA) Negative (NEGATIVE) Urine Ketones Negative (NEGATIVE) Urine Blood 2+ (NEGATIVE) H Urine Nitrite Positive (NEGATIVE) H Urine Bilirubin Negative (NEGATIVE) Urine Urobilinogen Normal MG/DL (0.0-1.0) Urine Leukocyte Esterase 2+ (NEGATIVE) H Urine RBC 20-30 /HPF (0 - 0) H Urine WBC 10-15 /HPF (0 - 0) H Urine Squamous Epithelial Cells None /LPF (NONE/OCC) Urine Bacteria Moderate /HPF (NONE) H Hepatitis B Surface Antigen Pending Current Medications Medications (Trade) Dose Ordered Sig/Kevin Route PRN Reason Start Time Stop Time Status Last Admin Dose Admin Acetaminophen (Tylenol) 650 mg Q6H PRN ORAL Mild Pain/Temp > 100.5 12/24/18 05:45 01/23/19 05:44 12/24/18 09:42 Albuterol/ Ipratropium (Albuterol/ Ipratropium) 3 ml Q4H PRN HHN Shortness of Breath 12/24/18 05:30 12/29/18 05:29 Aripiprazole (Abilify) 10 mg DAILY ORAL 12/24/18 09:00 01/23/19 08:59 12/24/18 09:35 Atorvastatin Calcium (Lipitor) 80 mg BEDTIME ORAL 12/24/18 21:00 01/23/19 20:59 Bethanechol Chloride (Urecholine) 25 mg THREE TIMES A DAY ORAL 12/24/18 09:00 01/23/19 08:59 12/24/18 13:49 Bisacodyl (Dulcolax) 10 mg DAILY ORAL 12/24/18 09:00 01/23/19 08:59 12/24/18 09:32 Clopidogrel Bisulfate (Plavix) 75 mg DAILY ORAL 12/24/18 09:00 01/23/19 08:59 12/24/18 09:35 Dextrose (Dextrose 50%) 25 ml Q30M PRN IV Hypoglycemia 12/24/18 05:30 01/23/19 05:29 Dextrose (Dextrose 50%) 50 ml Q30M PRN IV Hypoglycemia 12/24/18 05:30 01/23/19 05:29 Diphenhydramine HCl (Benadryl) 50 mg Q6H PRN ORAL Itching 12/24/18 05:45 01/23/19 05:44 Docusate Sodium (Colace) 250 mg TWICE A DAY ORAL 12/24/18 09:00 01/23/19 08:59 12/24/18 09:32 Famotidine (Pepcid) 20 mg BID ORAL 12/24/18 09:00 01/23/19 08:59 12/24/18 09:32 Fluticasone Propionate (Flonase) 1 spray DAILY NASAL 12/24/18 09:00 01/23/19 08:59 12/24/18 09:31 Furosemide (Lasix) 40 mg DAILY ORAL 12/24/18 09:00 01/23/19 08:59 12/24/18 09:35 Insulin Aspart (NovoLOG) BEFORE MEALS AND HS SUBQ 12/24/18 06:30 01/23/19 06:29 12/24/18 11:42 Lisinopril (Prinivil) 40 mg DAILY ORAL 12/24/18 09:00 01/23/19 08:59 12/24/18 09:32 Meropenem 1 gm/ Sodium Chloride 55 ml @ 110 mls/hr Q12HR IVPB 12/24/18 15:00 12/29/18 14:59 Metoprolol Succinate (Toprol XL) 50 mg DAILY ORAL 12/24/18 09:00 01/23/19 08:59 12/24/18 09:36 Non-Formulary Medication (Non-Formulary Med) 1 ea DAILY ORAL 12/24/18 09:00 01/23/19 08:59 UNV Ondansetron HCl (Zofran) 4 mg Q4H PRN IVP Nausea & Vomiting 12/24/18 12:00 01/23/19 11:59 12/24/18 12:00 Promethazine HCl/ Dextromethorphan (Phenergan DM) 6.25 mg Q8H PRN ORAL For Cough 12/24/18 10:30 01/23/19 10:29 12/24/18 12:00 Tamsulosin HCl (Flomax) 0.4 mg DAILY ORAL 12/24/18 09:00 01/23/19 08:59 12/24/18 09:32 Trazodone HCl (Desyrel) 100 mg BEDTIME ORAL 12/24/18 21:00 01/23/19 20:59 Vancomycin HCl (Vanco rx to dose) 1 ea DAILY PRN MISC Per rx protocol 12/24/18 13:45 01/23/19 13:44 Vancomycin HCl/ Dextrose 275 ml @ 183.333 mls/hr ONCE ONCE IVPB 12/24/18 16:00 12/24/18 17:29 Bertin Rothman M.D. Dec 24, 2018 14:12
--- NOTE | 2018-12-24 15:04 | NUR ---
NURSE NOTES: Patient is receiving hemodialysis, will administer the Antibiotics after he is done with his Hemodialysis,
[2018-12-24] MEDS ORDERED: Vancomycin 1.25gm Premix IVPB ONE (16:00)
--- NOTE | 2018-12-24 16:42 | General Progress Note ---
Assessment/Plan Status: stable Assessment/Plan: 1. pneumonia - Start meripenam and vanco. ID consult done. 2. CHF - start lasix 40 mg one po daily. check BNP level. 3. H/O A Fib with RVR - will restart Amioderone. will have acid tender see the patient today. 4. UTI - cont broad spectrum abx and f/u u/a and cx. 5. CRF on HD - consult renal for HD. 6. DM II - SSI. 7. BPH - cont home meds. 8. HTN - cont home meds. 9. Chronic urinary Retention - 10. HLD - cont home meds. 11. CAD - stable. 12. Asthma - cont home meds. 12. Mood disorder - cont home meds. Subjective Date patient seen: Dec 24, 2018 Time patient seen: 09:15 Constitutional: Reports: fever HEENT: Reports: no symptoms Cardiovascular: Reports: no symptoms Respiratory: Reports: cough Gastrointestinal/Abdominal: Reports: no symptoms Genitourinary: Reports: no symptoms 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: Reports: no symptoms Endocrine: Reports: no symptoms Hematologic/Lymphatic: Reports: no symptoms Allergies: Coded Allergies: No Known Allergies (Unverified , 12/26/12) Subjective This morning he had fever and cough. no sob or chest pain. no nausea or vomiting. Objective Last 24 Hour Vital Signs Date Time Temp Pulse Resp B/P (MAP) Pulse Ox O2 Delivery O2 Flow Rate FiO2 12/24/18 12:00 101.2 82 18 112/68 (83) 95 12/24/18 12:00 80 12/24/18 10:12 101.0 12/24/18 09:36 82 127/66 12/24/18 09:32 127/66 12/24/18 09:00 Nasal Cannula 2.0 12/24/18 08:00 101.2 82 20 127/66 (86) 97 12/24/18 08:00 74 12/24/18 07:20 89 18 91 Room Air 21 12/24/18 04:00 92 12/24/18 04:00 99.8 84 20 113/65 (81) 96 12/24/18 02:59 Nasal Cannula 2.0 12/24/18 02:52 86 12/24/18 02:45 100.2 79 20 115/66 (82) 98 12/24/18 02:30 100.0 115 12 127/67 98 Simple Mask 2.0 28 12/24/18 02:15 100.0 12/24/18 02:07 100.0 115 12 127/67 98 Simple Mask 12/24/18 01:59 113 18 98 Nasal Cannula 2.0 28 12/24/18 01:37 102.8 12/23/18 22:48 96 16 Room Air 12/23/18 22:48 100.2 89 16 149/73 94 Room Air 12/23/18 22:31 100.2 96 16 149/73 (98) 94 Room Air Intake and Output 12/23/18 12/24/18 18:59 06:59 Intake Total 210 ml Output Total 550 ml Balance -340 ml Intake Oral 210 ml Output Urine Total 550 ml Laboratory Tests 12/24/18 00:51: White Blood Count 10.3, Red Blood Count 2.87L, Hemoglobin 9.1L, Hematocrit 27.2L , Mean Corpuscular Volume 95, Mean Corpuscular Hemoglobin 31.6H, Mean Corpuscular Hemoglobin Concent 33.4, Red Cell Distribution Width 12.4, Platelet Count 194, Mean Platelet Volume 5.5L, Neutrophils (%) (Auto) 83.9H, Lymphocytes (%) (Auto) 7.7L, Monocytes (%) (Auto) 7.7, Eosinophils (%) (Auto) 0.2, Basophils (%) (Auto) 0.4, Sodium Level 134L, Potassium Level 3.7, Chloride Level 96L, Carbon Dioxide Level 30, Anion Gap 8, Blood Urea Nitrogen 21H, Creatinine 2.9H, Estimat Glomerular Filtration Rate 21.8, Glucose Level 238H, Lactic Acid Level 1.50, Calcium Level 8.1L, Total Bilirubin 0.6, Aspartate Amino Transf (AST/SGOT) 25, Alanine Aminotransferase (ALT/SGPT) 23, Alkaline Phosphatase 141H, Total Creatine Kinase 264, Creatine Kinase MB 0.7, Creatine Kinase MB Relative Index 0.2, Troponin I 0.011, Pro-B-Type Natriuretic Peptide 2769H, Total Protein 6.2L, Albumin 3.5, Globulin 2.7, Albumin/Globulin Ratio 1.3 , Lipase 68L 12/24/18 01:41: Urine Color Pale yellow, Urine Appearance Slightly cloudy, Urine pH 6, Urine Specific [place] 1.015, Urine Protein 2+H, Urine Glucose (UA) Negative, Urine Ketones Negative, Urine Blood 2+H, Urine Nitrite PositiveH, Urine Bilirubin Negative, Urine Urobilinogen Normal, Urine Leukocyte Esterase 2+H, Urine RBC 20- 30H, Urine WBC 10-15H, Urine Squamous Epithelial Cells None, Urine Bacteria ModerateH 12/24/18 06:14: Sodium Level 135L, Potassium Level 3.6, Chloride Level 99, Carbon Dioxide Level 31, Anion Gap 5, Blood Urea Nitrogen 21H, Creatinine 3.1H, Estimat Glomerular Filtration Rate 20.2, Glucose Level 237H, Calcium Level 8.4L, Total Bilirubin 0.6, Aspartate Amino Transf (AST/SGOT) 19, Alanine Aminotransferase (ALT/SGPT) 21, Alkaline Phosphatase 125H, Total Protein 6.6, Albumin 3.0L, Globulin 3.6, Albumin/Globulin Ratio 0.8L, Hepatitis B Surface Antigen [Pending] Height (Feet): 5 Height (Inches): 6.00 Weight (Pounds): 148 General Appearance: no apparent distress, alert EENT: normal ENT inspection Neck: non-tender, normal alignment, supple Cardiovascular: normal rate, regular rhythm Respiratory/Chest: chest wall non-tender, lungs clear Abdomen: normal bowel sounds, non tender, soft Extremities: normal range of motion, non-tender Edema: no edema noted Arm (L), no edema noted Arm (R), no edema noted Leg (L), no edema noted Leg (R), no edema noted Pedal (L), no edema noted Pedal (R), no edema noted Generalized Neurologic: alert, responsive Skin: warm/dry Lymphatic: normal anterior cervical (L), normal anterior cervical (R), normal posterior cervical (L), normal posterior cervical (R), normal submandibular (L) , normal submandibular (R), normal supraclavicular (L), normal supraclavicular ( R), normal axillary (L), normal axillary (R), normal inguinal (L), normal inguinal (R), normal other Gem Best MD Dec 24, 2018 16:42
[2018-12-24] MEDS: Meropenem 1 GM in NS 55 ML IVPB SCH ×2 (16:58→23:09)
--- NOTE | 2018-12-24 17:15 | Consultation ---
DATE OF CONSULTATION: 12/24/2018 CONSULTING PHYSICIAN: Mendez Roman M.D. REASON FOR CONSULTATION: End-stage renal disease, on hemodialysis. HISTORY OF PRESENT ILLNESS: The patient is a pleasant 68-year-old gentleman admitted from the nursing care facility with cough, congestion, not feeling well, and with subjective fevers. Denies any chest pain. No nausea, vomiting, or diarrhea. The patient is resting comfortably. He feels weak, tired and fatigued. PAST MEDICAL HISTORY: 1. End-stage renal disease, on hemodialysis Monday, Monday and Monday. 2. Anemia of chronic kidney disease. 3. Diabetes mellitus. 4. Hypertension. 5. BPH. 6. Hyperlipidemia. PAST SURGICAL HISTORY: Tunneled dialysis catheter. ALLERGIES: No known drug allergies. SOCIAL HISTORY: No tobacco, alcohol, or illicit drug use. FAMILY HISTORY: Positive for hypertension and diabetes. REVIEW OF SYSTEMS: NEUROLOGIC: The patient denies headache, change in vision, syncope, or presyncopal episodes. CARDIOVASCULAR: No current chest pain or palpitations. PULMONARY: Mild shortness of breath, nonproductive cough. GASTROINTESTINAL/GENITOURINARY: No change in urinary or bowel habits. No nausea, vomiting, or diarrhea. ENDOCRINOLOGY: No night sweats, fevers, or chills. PHYSICAL EXAMINATION: VITAL SIGNS: Blood pressure 127/66, respiratory rate 20, pulse 82, and temperature 101.0. GENERAL: The patient is awake and alert, in no distress. HEENT: Extraocular muscles intact. No lymphadenopathy noted. CARDIOVASCULAR: S1, S2. No murmurs or gallops. PULMONARY: Clear to auscultation bilaterally. No rales, rhonchi, or wheezes. ABDOMEN: Nondistended and nontender. EXTREMITIES: No edema noted. LABORATORY DATA: Labs dated 12/24/2018, sodium 135, potassium 3.6, BUN 21, and creatinine 3.1. Hemoglobin 9.1, white cell count 10.3, and platelet count 194. ASSESSMENT AND PLAN: 1. End-stage renal disease, on hemodialysis. We will continue hemodialysis on a Monday, Monday and Monday schedule. 2. Sepsis with elevated with elevated temperature. WBC currently 10.3. The patient does have a hemodialysis catheter. At this time, we will defer to Infectious Disease and Primary. Blood cultures to be drawn. 3. Hypertension. Adjust medications as deemed appropriate. 4. Anemia of chronic kidney disease. We will start Epogen until hemoglobin greater than 10. Mendez Roman MD DR: TSEVAN JOB#: [id number] CC:
--- NOTE | 2018-12-24 17:56 | Cardiac Electrophysiology PN ---
Subjective Subjective [id number] Objective Last 24 Hour Vital Signs Date Time Temp Pulse Resp B/P (MAP) Pulse Ox O2 Delivery O2 Flow Rate FiO2 12/24/18 16:00 100.2 116 18 114/62 (79) 95 12/24/18 16:00 65 12/24/18 12:00 101.2 82 18 112/68 (83) 95 12/24/18 12:00 80 12/24/18 10:12 101.0 12/24/18 09:36 82 127/66 12/24/18 09:32 127/66 12/24/18 09:00 Nasal Cannula 2.0 12/24/18 08:00 101.2 82 20 127/66 (86) 97 12/24/18 08:00 74 12/24/18 07:20 89 18 91 Room Air 21 12/24/18 04:00 92 12/24/18 04:00 99.8 84 20 113/65 (81) 96 12/24/18 02:59 Nasal Cannula 2.0 12/24/18 02:52 86 12/24/18 02:45 100.2 79 20 115/66 (82) 98 12/24/18 02:30 100.0 115 12 127/67 98 Simple Mask 2.0 28 12/24/18 02:15 100.0 12/24/18 02:07 100.0 115 12 127/67 98 Simple Mask 12/24/18 01:59 113 18 98 Nasal Cannula 2.0 28 12/24/18 01:37 102.8 12/23/18 22:48 96 16 Room Air 12/23/18 22:48 100.2 89 16 149/73 94 Room Air 12/23/18 22:31 100.2 96 16 149/73 (98) 94 Room Air Intake and Output 12/23/18 12/24/18 18:59 06:59 Intake Total 210 ml Output Total 550 ml Balance -340 ml Intake Oral 210 ml Output Urine Total 550 ml Laboratory Tests Test 12/24/18 00:51 12/24/18 01:41 12/24/18 06:14 White Blood Count 10.3 K/UL (4.8-10.8) Red Blood Count 2.87 M/UL (4.70-6.10) L Hemoglobin 9.1 G/DL (14.2-18.0) L Hematocrit 27.2 % (42.0-52.0) L Mean Corpuscular Volume 95 FL (80-99) Mean Corpuscular Hemoglobin 31.6 PG (27.0-31.0) H Mean Corpuscular Hemoglobin Concent 33.4 G/DL (32.0-36.0) Red Cell Distribution Width 12.4 % (11.6-14.8) Platelet Count 194 K/UL (150-450) Mean Platelet Volume 5.5 FL (6.5-10.1) L Neutrophils (%) (Auto) 83.9 % (45.0-75.0) H Lymphocytes (%) (Auto) 7.7 % (20.0-45.0) L Monocytes (%) (Auto) 7.7 % (1.0-10.0) Eosinophils (%) (Auto) 0.2 % (0.0-3.0) Basophils (%) (Auto) 0.4 % (0.0-2.0) Sodium Level 134 MMOL/L (136-145) L 135 MMOL/L (136-145) L Potassium Level 3.7 MMOL/L (3.5-5.1) 3.6 MMOL/L (3.5-5.1) Chloride Level 96 MMOL/L (98-107) L 99 MMOL/L (98-107) Carbon Dioxide Level 30 MMOL/L (21-32) 31 MMOL/L (21-32) Anion Gap 8 mmol/L (5-15) 5 mmol/L (5-15) Blood Urea Nitrogen 21 mg/dL (7-18) H 21 mg/dL (7-18) H Creatinine 2.9 MG/DL (0.55-1.30) H 3.1 MG/DL (0.55-1.30) H Estimat Glomerular Filtration Rate 21.8 mL/min (>60) 20.2 mL/min (>60) Glucose Level 238 MG/DL (74-106) H 237 MG/DL (74-106) H Lactic Acid Level 1.50 mmol/L (0.4-2.0) Calcium Level 8.1 MG/DL (8.5-10.1) L 8.4 MG/DL (8.5-10.1) L Total Bilirubin 0.6 MG/DL (0.2-1.0) 0.6 MG/DL (0.2-1.0) Aspartate Amino Transf (AST/SGOT) 25 U/L (15-37) 19 U/L (15-37) Alanine Aminotransferase (ALT/SGPT) 23 U/L (12-78) 21 U/L (12-78) Alkaline Phosphatase 141 U/L (46-116) H 125 U/L (46-116) H Total Creatine Kinase 264 U/L (26-308) Creatine Kinase MB 0.7 NG/ML (0.0-3.6) Creatine Kinase MB Relative Index 0.2 Troponin I 0.011 ng/mL (0.000-0.056) Pro-B-Type Natriuretic Peptide 2769 pg/mL (0-125) H Total Protein 6.2 G/DL (6.4-8.2) L 6.6 G/DL (6.4-8.2) Albumin 3.5 G/DL (3.4-5.0) 3.0 G/DL (3.4-5.0) L Globulin 2.7 g/dL 3.6 g/dL Albumin/Globulin Ratio 1.3 (1.0-2.7) 0.8 (1.0-2.7) L Lipase 68 U/L (73-393) L Urine Color Pale yellow Urine Appearance Slightly cloudy Urine pH 6 (4.5-8.0) Urine Specific [place] 1.015 (1.005-1.035) Urine Protein 2+ (NEGATIVE) H Urine Glucose (UA) Negative (NEGATIVE) Urine Ketones Negative (NEGATIVE) Urine Blood 2+ (NEGATIVE) H Urine Nitrite Positive (NEGATIVE) H Urine Bilirubin Negative (NEGATIVE) Urine Urobilinogen Normal MG/DL (0.0-1.0) Urine Leukocyte Esterase 2+ (NEGATIVE) H Urine RBC 20-30 /HPF (0 - 0) H Urine WBC 10-15 /HPF (0 - 0) H Urine Squamous Epithelial Cells None /LPF (NONE/OCC) Urine Bacteria Moderate /HPF (NONE) H Hepatitis B Surface Antigen Pending Microbiology Date/Time Source Procedure Growth Status 12/24/18 01:57 Rectum Received Milan Fields MD Dec 24, 2018 17:56
--- NOTE | 2018-12-24 19:29 | NUR ---
HAND-OFF: Report given to TAYLOR Abdul.
--- NOTE | 2018-12-24 19:30 | NUR ---
NURSE NOTES: Received pt and report from TAYLOR Rebolledo. Observed pt resting in bed comfortably with both eyes closed. Pt is A/Ox2. electronic device monitor is in placed, IV site intact, asymptomatic, and patent. Bed is in the lowest position and locked. Call light within reach. No signs and symptoms of acute distress noted at this time. Will continue plan of care.
--- NOTE | 2018-12-24 20:45 | Consultation ---
DATE OF CONSULTATION: 12/24/2018 INFECTIOUS DISEASE CONSULTATION CONSULTING PHYSICIAN: Bertin Rothman M.D. REQUESTING PHYSICIAN: Gem Best M.D. REASON FOR CONSULTATION: Pneumonia, catheter-associated urinary tract infection, fever, and sepsis. Recommendation for antibiotics treatment. HISTORY OF PRESENT ILLNESS: The patient is a 68-year-old male with past medical history of coronary artery disease, hypertension, diabetes, GERD, and confusion was sent from [facility] facility with cough, congestion, and shortness of breath over the last couple of days. The patient's cough has been dry so far, nonproductive. He had shortness of breath on and off over the last couple of days. The patient has been febrile with poor oral intake. His temperature was found to be 100.2 in the emergency room, saturating 94% on room air. The patient's chest x-ray showed evidence of bilateral infiltration concerning for pneumonia with his cough and fever. He also had urinary tract infection, which could be due to his chronic indwelling Dumont catheter, which he had for unknown duration of time. The patient was given ertapenem by the admitting physician and Infectious Disease consultation was requested for antibiotics treatment and further management. As of note, the patient is poor historian and could not provide good history. Most of the information were obtained from the medical record and nursing staff. REVIEW OF SYSTEMS: Unable to obtain. The patient is a poor historian apart from the one I mentioned above in my note. PAST MEDICAL HISTORY: Significant for coronary artery disease, hypertension, diabetes, gastroesophageal reflux disease, and confusion. PAST SURGICAL HISTORY: Not on record. MEDICATIONS: The patient received ertapenem 1 dose and ceftriaxone. For the rest of his medications, please refer to [facility]. ALLERGIES: No known drug allergies. FAMILY HISTORY: Unable to obtain. SOCIAL HISTORY: He is a [facility] resident. No recent drugs, tobacco, or alcohol. He is retired. PHYSICAL EXAMINATION: VITAL SIGNS: Temperature 101.2 pulse 82, respirations 18, blood pressure 112/68, and saturation 95% on 2 L nasal cannula. GENERAL: A middle-aged male, sitting up in bed, awake, alert, looking flushed, coughing, febrile, and not in acute distress. HEENT: He had flushed face. Mildly congested sclera. Moist oral mucosa. No exudate or thrush. Pupils are reactive to light equally. NECK: Supple. No lymphadenopathy. CARDIOVASCULAR: Regular rate and rhythm. No murmur or gallop. CHEST: Left upper chest PermCath with clean exit. No evidence of local erythema or drainage at the catheter site. LUNGS: He had diminished breathing sounds at the bases with wheezes. Normal breathing efforts. ABDOMEN: Soft, nontender, and nondistended. Normal bowel sounds. No hepatosplenomegaly or ascites. EXTREMITY: No edema or cyanosis. No clubbing. SKIN: No rash. No hives. No ulceration. GENITOURINARY: He had normal genitalia with indwelling Dumont catheter in place. Dark cloudy urine. MUSCULOSKELETAL: No muscle swelling or joint tenderness. LABORATORY DATA: Labs showed white count of 10.3, hemoglobin of 9.1, and platelet count of 194,000. BUN of 21 and creatinine of 3.1. AST of 19 and ALT of 21. Albumin of 3. Lipase of 68. Urinalysis showed +2 leukocyte esterase, wbc 10 to 15, and moderate amount of bacteria. IMAGING: Chest x-ray showed bilateral diffuse interstitial and airspace disease, infiltrates versus edema. ASSESSMENT AND RECOMMENDATION: 1. Healthcare-acquired pneumonia with cough, shortness of breath, high fever, and infiltrates on chest x-ray. We will start meropenem and vancomycin empirically and send sputum culture if he produces any. We will deescalate antibiotics based on his clinical progress, aspiration precaution, keep head of bed more than 30 degrees. 2. Catheter-associated urinary tract infection. The patient will be on meropenem and vancomycin empirically also to cover his pneumonia pending urine culture. May need to change Dumont catheter based on his culture results in the future. Continue catheter care as needed. 3. Sepsis with fever and lung infiltration suspect due to the above. Continue wide-spectrum antibiotics pending cultures and blood pressure support. 4. Fever due to the above. Continue antibiotics and Tylenol as needed. 5. End-stage renal disease. The patient has left PermCath on his chest with clean site. No sign of local infection. Continue hemodialysis as per Renal pending blood culture results. Thank you for the consult. ID will continue to follow. Please feel free to call with any question. Bertin Rothman M.D. DR: CHRISTOPHER JOB#: [id number] CC:
[2018-12-24] MEDS: TraZODone 100mg tab ORAL SCH (21:11)
[2018-12-24] MEDS: Atorvastatin 80mg tab ORAL SCH (21:12)
--- NOTE | 2018-12-24 22:45 | History and Physical Report ---
DATE OF ADMISSION: 12/23/2018 CHIEF COMPLAINT: Productive cough. HISTORY OF PRESENT ILLNESS: This is a 68-year-old male with chronic renal failure, on hemodialysis, diabetes type 2, BPH, and paroxysmal AFib with rapid ventricular rate, hypertension, chronic urinary retention, hyperlipidemia, coronary artery disease, and asthma, who was brought in, who came into the emergency room for complaint of productive coughing for the past few days. The patient also noted to have temperature of 101 in the emergency room. He also has urinary retention and chronic indwelling catheter. PAST MEDICAL HISTORY: Includes chronic renal failure, on hemodialysis, diabetes mellitus type 2, benign prostatic hypertrophy, AFib with rapid ventricular rate, hypertension, chronic urinary retention, hyperlipidemia, coronary artery disease, asthma, mood disorder, acute ID, history of anemia due to GI blood loss, and chronic indwelling catheter. PAST SURGICAL HISTORY: Includes coronary angio done in 2016 and history of hernia repair in 2014. SOCIAL HISTORY: The patient is single and lives in [facility]. Nonsmoker and no history of alcohol or drug use. FAMILY HISTORY: History of coronary artery disease in the family was negative and no history of cancer in the family. REVIEW OF SYSTEMS: Negative except for HPI. PHYSICAL EXAMINATION: VITAL SIGNS: Include temperature 100.2, pulse 96, respirations 16, blood pressure 149/73, pulse-ox 94% on room air. GENERAL APPEARANCE: Alert and oriented x3, in no apparent distress. HEENT: Normocephalic and normochromic. Extraocular muscles intact. Throat is clear. NECK: Supple. No lymphadenopathy. LUNGS: Shows crackles bilaterally. No wheezing CARDIOVASCULAR: Regular rate and rhythm. No murmur. No gallop. ABDOMEN: Soft, nontender, nondistended. Positive bowel sounds. GENITOURINARY: No CVA tenderness. EXTREMITIES: No edema, cyanosis, or clubbing. NEUROLOGIC: Responds to commands. SKIN: No rash. LABORATORY AND DIAGNOSTIC DATA: Include sodium 134, potassium 3.7, chloride 96, bicarb 30, BUN 21, creatinine 2.9, glucose 238, calcium 8.1, AST 25, ALT 23, alkaline phosphatase 141. Troponin is 0.011. BNP 2769. Albumin 3.5. WBC 10.3, hemoglobin 9.1, hematocrit 27.2, platelet count 194,000; neutrophil is 83. UA showed +2 protein, +2 blood, urine nitrite is positive, and urine rbc 20-30, urine wbc 10-15 with moderate bacteria. Chest x-ray showed bilateral diffuse interstitial and airspace disease, infiltrate versus edema. IMPRESSION: 1. Pneumonia. We will start the patient on broad-spectrum antibiotic, meropenem and vancomycin, and we will have ID evaluate the patient as well. 2. Urinary tract infection complicated by chronic urinary catheter. We will start the patient on broad-spectrum antibiotic and follow the urine culture. 3. Questionable sepsis. Continue broad-spectrum antibiotic and follow the culture. 4. CHF. We will start the patient on Lasix and follow BNP and the patient's status as far as shortness of breath. 5. AFib with history of rapid ventricular response. We will have Cardiology see the patient and may start the patient on amiodarone as before. 6. Hypertension. Continue home medications. 7. Diabetes type 2. We will start him on sliding scale insulin and adjust insulin per blood sugar. 8. Chronic urinary retention. Continue urinary catheter. 9. Hyperlipidemia. Continue home medications. 10. Coronary artery disease. 11. BPH. 12. History of asthma. 13. Mood disorder. 14. Chronic renal failure, on hemodialysis. PLAN: We will start the patient on broad-spectrum antibiotic and diurese the patient and we will have Renal, Cardiology, ID see the patient while in hospital. The patient will be admitted for minimum of 2-night stay for diagnoses of possible pneumonia and urinary tract infection with possible sepsis. Gem Best M.D. DR: Elio JOB#: [id number] CC: JACK
[2018-12-25] VITALS: BP 133/67
--- NOTE | 2018-12-25 01:30 | Consultation ---
DATE OF CONSULTATION: 12/24/2018 CARDIOLOGY CONSULTATION CONSULTING PHYSICIAN: Milan Fields M.D. REFERRING PHYSICIAN: Gem Best M.D. REASON FOR CONSULTATION: History of congestive heart failure, atrial fibrillation, hypertension, and coronary artery disease. HISTORY OF PRESENT ILLNESS: The patient is a 68-year-old [place] gentleman with hypertension, coronary artery disease, atrial fibrillation, and congestive heart rate, as well as end-stage renal disease, on hemodialysis, was admitted from [facility] for cough and congestion and feeling . The patient also has diabetes and hyperlipidemia. The patient was admitted and started on IV antibiotic. On admission, the patient was in sinus rhythm with low-voltage QRS. At the time of my evaluation, the patient denies any chest pain. His major complaint was only shortness of breath. REVIEW OF SYSTEMS: Negative other than what was mentioned in the history of present illness. PAST MEDICAL HISTORY: As mentioned above. FAMILY HISTORY: Noncontributory. SOCIAL HISTORY: He lives in [facility]. Does not smoke or drink alcohol. PHYSICAL EXAMINATION: VITAL SIGNS: Show blood pressure of 114/62, pulse of 60, respirations 18, and temperature is 101.2. HEAD AND NECK: Shows no JVD. LUNGS: Coarse rhonchi. CARDIOVASCULAR: Shows regular S1 and S2 with no gallop or murmur. ABDOMEN: Soft and nontender. EXTREMITIES: Have no pitting edema. LABORATORY AND DIAGNOSTIC DATA: His labs show white count of 10.2, hemoglobin 9.1, hematocrit of 27.2, and platelet count of 194,000. Sodium 135, potassium is 3.6, BUN of 21, creatinine 3.1, and glucose of 237. Troponin is negative. BNP is . ASSESSMENT/PLAN: 1. Shortness of breath, likely due to underlying pneumonia. His BNP were also elevated at 2769. We will get an echocardiogram for further evaluation. The patient is already on hemodialysis. 2. Paroxysmal atrial fibrillation, currently in sinus rhythm. The patient is on Toprol-XL 50 mg daily. 3. Congestive heart failure. On Toprol and lisinopril 40 mg daily and hemodialysis. 4. Coronary artery disease with history of prior stent. Denies any chest pain. On Plavix and metoprolol and Lipitor 80 mg daily. 5. Sepsis. On broad-spectrum IV antibiotics. Thank you very much for allowing me to participate in the care of this patient. Please do not hesitate to contact me for any questions regarding my evaluation. Milan Fields M.D. DR: CHITO JOB#: [id number] CC:
[2018-12-25] MEDS ORDERED: cefTRIAXone 1 GM in D5W 55 ML IVPB SCH (02:00)
[2018-12-25 04:00] VITALS: BP 108/51
[2018-12-25] MEDS: NovoLOG Insulin Flexpen SUBQ SCH ×4 (06:05→22:06)
[2018-12-25 07:20] LABS: BASOPHILS % (AUTO) 0.9 % (0.0-2.0); EOSINOPHILS % (AUTO) 1.2 % (0.0-3.0); HEMATOCRIT 27.3 % (42.0-52.0); HEMOGLOBIN 8.9 G/DL (14.2-18.0); MEAN CORPUSCULAR VOLUME 96 FL (80-99); MONOCYTES % (AUTO) 10.6 % (1.0-10.0); NEUTROPHILS % (AUTO) 71.3 % (45.0-75.0); PLATELET COUNT 168 K/UL (150-450); RED BLOOD COUNT 2.83 M/UL (4.70-6.10); RED CELL DISTRIBUTION WIDTH 12.6 % (11.6-14.8); WHITE BLOOD COUNT 7.1 K/UL (4.8-10.8)
--- NOTE | 2018-12-25 07:28 | NUR ---
HAND-OFF: Report given to TAYLOR Rebolledo.
--- NOTE | 2018-12-25 07:29 | NUR ---
NURSE NOTES: Received report from TAYLOR Abdul. Patient is resting in bed, sleeping in high sutton position. patient in stable condition with no niharika and symptoms of acute distress at this time. Breathing is unlabored with 2 liter Nasal cannula. IV intact and patent. Bed is in lowest position with two side rails up, brakes engaged . Call light and bed side table are within reach. Will continue plan of care.
[2018-12-25 07:44] LABS: ANION GAP 7 mmol/L (5-15); BLOOD UREA NITROGEN 16 mg/dL (7-18); CALCIUM 8.5 MG/DL (8.5-10.1); CARBON DIOXIDE 32 MMOL/L (21-32); CHLORIDE 99 MMOL/L (98-107); CREATININE 2.8 MG/DL (0.55-1.30); POTASSIUM 3.5 MMOL/L (3.5-5.1); SODIUM 138 MMOL/L (136-145)
[2018-12-25 08:00] VITALS: BP 102/57
[2018-12-25] MEDS: Meropenem 1 GM in NS 55 ML IVPB SCH (08:25)
--- NOTE | 2018-12-25 08:55 | General Progress Note ---
Assessment/Plan Status: stable Assessment/Plan: 1. pneumonia - Cont meripenam and vanco. ID following. f/u cultures. 2. CHF - improved sob. d/c lasix 40 mg. excess fluid removed with HD. 3. H/O A Fib with RVR, currently on NSR. will discuss with cardiologis. we may not need Amioderone, given he is in NSR now. 4. UTI - cont broad spectrum abx and f/u u/a and cx. 5. CRF on HD - renal for HD. 6. DM II - SSI. 7. BPH - cont home meds. 8. HTN - cont home meds. 9. Chronic urinary Retention - 10. HLD - cont home meds. 11. CAD - stable. 12. Asthma - cont home meds. 12. Mood disorder - cont home meds. Subjective Date patient seen: Dec 25, 2018 Time patient seen: 08:40 Constitutional: Reports: weakness HEENT: Reports: no symptoms Cardiovascular: Reports: no symptoms Respiratory: Reports: no symptoms Gastrointestinal/Abdominal: Reports: no symptoms Genitourinary: Reports: no symptoms 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: Reports: no symptoms Endocrine: Reports: no symptoms Hematologic/Lymphatic: Reports: no symptoms Allergies: Coded Allergies: No Known Allergies (Unverified , 12/26/12) Subjective His coughing and temp has improved today. He had HD yesterday. no sob or chest pain. no nausea or vomiting. Objective Last 24 Hour Vital Signs Date Time Temp Pulse Resp B/P (MAP) Pulse Ox O2 Delivery O2 Flow Rate FiO2 12/25/18 04:00 99.9 64 20 108/51 (70) 97 12/25/18 04:00 75 12/25/18 00:00 99.0 74 18 133/67 (89) 95 12/25/18 00:00 64 12/24/18 21:00 Nasal Cannula 2.0 12/24/18 20:03 93 Nasal Cannula 2.0 28 12/24/18 20:02 71 20 93 Nasal Cannula 2.0 28 12/24/18 20:00 64 12/24/18 20:00 99.2 77 17 129/65 (86) 95 12/24/18 16:00 100.2 116 18 114/62 (79) 95 12/24/18 16:00 65 12/24/18 12:00 101.2 82 18 112/68 (83) 95 12/24/18 12:00 80 12/24/18 10:12 101.0 12/24/18 09:36 82 127/66 12/24/18 09:32 127/66 12/24/18 09:00 Nasal Cannula 2.0 Intake and Output 12/24/18 12/25/18 19:00 07:00 Intake Total 720 ml 320 ml Output Total 700 ml 300 ml Balance 20 ml 20 ml Intake Oral 720 ml 320 ml Output Urine Total 700 ml 300 ml Laboratory Tests 12/25/18 06:20: White Blood Count 7.1, Red Blood Count 2.83L, Hemoglobin 8.9L, Hematocrit 27.3L , Mean Corpuscular Volume 96, Mean Corpuscular Hemoglobin 31.5H, Mean Corpuscular Hemoglobin Concent 32.7, Red Cell Distribution Width 12.6, Platelet Count 168, Mean Platelet Volume 6.6, Neutrophils (%) (Auto) 71.3, Lymphocytes (% ) (Auto) 16.0L, Monocytes (%) (Auto) 10.6H, Eosinophils (%) (Auto) 1.2, Basophils (%) (Auto) 0.9, Sodium Level 138, Potassium Level 3.5, Chloride Level 99, Carbon Dioxide Level 32, Anion Gap 7, Blood Urea Nitrogen 16, Creatinine 2.8H, Estimat Glomerular Filtration Rate 22.7, Glucose Level 138#H, Calcium Level 8.5, Troponin I 0.015, Pro-B-Type Natriuretic Peptide 3383H Height (Feet): 5 Height (Inches): 6.00 Weight (Pounds): 148 General Appearance: no apparent distress, alert EENT: normal ENT inspection Neck: normal alignment, supple Cardiovascular: normal peripheral pulses, normal rate, regular rhythm Respiratory/Chest: lungs clear, normal breath sounds, no respiratory distress Abdomen: normal bowel sounds, non tender, soft Extremities: normal range of motion, non-tender Edema: no edema noted Arm (L), no edema noted Arm (R), no edema noted Leg (L), no edema noted Leg (R), no edema noted Pedal (L), no edema noted Pedal (R), no edema noted Generalized Neurologic: alert, responsive Skin: warm/dry Lymphatic: normal anterior cervical (L), normal anterior cervical (R), normal posterior cervical (L), normal posterior cervical (R), normal submandibular (L) , normal submandibular (R), normal supraclavicular (L), normal supraclavicular ( R), normal axillary (L), normal axillary (R), normal inguinal (L), normal inguinal (R), normal other Gem Best MD Dec 25, 2018 08:55
[2018-12-25] MEDS: Metoprolol Succinate XL 50mg tab ORAL SCH (09:00)
[2018-12-25] MEDS: Lisinopril 20mg tab ORAL SCH (09:00)
--- NOTE | 2018-12-25 09:17 | Nephrology Progress Note ---
Assessment/Plan Status: stable Assessment/Plan: A/P 1) ESRD- HD MWF - Had HD yesterday 2) Sepsis- CAP and UTI - Abx per ID mgmt 3) Anemia of CKD- add EPO with HD with Hgb goal >10 4) HTN- stable adjust medications as needed 5) DM- per PCP. Metformin discontinued Subjective Date patient seen: Dec 25, 2018 Time patient seen: 09:14 ROS Limited/Unobtainable: No Allergies: Coded Allergies: No Known Allergies (Unverified , 12/26/12) Subjective Patient resting and in no distress Objective Last 24 Hour Vital Signs Date Time Temp Pulse Resp B/P (MAP) Pulse Ox O2 Delivery O2 Flow Rate FiO2 12/25/18 04:00 99.9 64 20 108/51 (70) 97 12/25/18 04:00 75 12/25/18 00:00 99.0 74 18 133/67 (89) 95 12/25/18 00:00 64 12/24/18 21:00 Nasal Cannula 2.0 12/24/18 20:03 93 Nasal Cannula 2.0 28 12/24/18 20:02 71 20 93 Nasal Cannula 2.0 28 12/24/18 20:00 64 12/24/18 20:00 99.2 77 17 129/65 (86) 95 12/24/18 16:00 100.2 116 18 114/62 (79) 95 12/24/18 16:00 65 12/24/18 12:00 101.2 82 18 112/68 (83) 95 12/24/18 12:00 80 12/24/18 10:12 101.0 12/24/18 09:36 82 127/66 12/24/18 09:32 127/66 Intake and Output 12/24/18 12/25/18 19:00 07:00 Intake Total 720 ml 320 ml Output Total 700 ml 300 ml Balance 20 ml 20 ml Intake Oral 720 ml 320 ml Output Urine Total 700 ml 300 ml Laboratory Tests 12/25/18 06:20: White Blood Count 7.1, Red Blood Count 2.83L, Hemoglobin 8.9L, Hematocrit 27.3L , Mean Corpuscular Volume 96, Mean Corpuscular Hemoglobin 31.5H, Mean Corpuscular Hemoglobin Concent 32.7, Red Cell Distribution Width 12.6, Platelet Count 168, Mean Platelet Volume 6.6, Neutrophils (%) (Auto) 71.3, Lymphocytes (% ) (Auto) 16.0L, Monocytes (%) (Auto) 10.6H, Eosinophils (%) (Auto) 1.2, Basophils (%) (Auto) 0.9, Sodium Level 138, Potassium Level 3.5, Chloride Level 99, Carbon Dioxide Level 32, Anion Gap 7, Blood Urea Nitrogen 16, Creatinine 2.8H, Estimat Glomerular Filtration Rate 22.7, Glucose Level 138#H, Calcium Level 8.5, Troponin I 0.015, Pro-B-Type Natriuretic Peptide 3383H Height (Feet): 5 Height (Inches): 6.00 Weight (Pounds): 148 General Appearance: no apparent distress, alert EENT: normal ENT inspection Neck: normal alignment, supple Cardiovascular: normal rate, regular rhythm Respiratory/Chest: lungs clear, normal breath sounds Abdomen: non tender, soft Edema: no edema noted Arm (L), no edema noted Arm (R), no edema noted Leg (L), no edema noted Leg (R), no edema noted Pedal (L), no edema noted Pedal (R), no edema noted Generalized Mendez Roman MD Dec 25, 2018 09:17
[2018-12-25] MEDS: Bethanechol 25mg Tab ORAL SCH ×3 (09:20→17:11)
[2018-12-25] MEDS: Bisacodyl EC 5mg tab ORAL SCH (09:20)
[2018-12-25] MEDS: Docusate 250mg cap ORAL SCH ×2 (09:20→17:11)
[2018-12-25] MEDS: ARIPiprazole 10mg tab ORAL SCH (09:20)
[2018-12-25] MEDS: Tamsulosin 0.4mg cap ORAL SCH (09:20)
[2018-12-25] MEDS: Flonase Nasal Inhaler 16gm NASAL SCH (09:25)
[2018-12-25 12:00] VITALS: BP 99/53
--- NOTE | 2018-12-25 12:09 | Cardiac Electrophysiology PN ---
Assessment/Plan Assessment/Plan 1. Shortness of breath, likely due to underlying pneumonia. His BNP were also elevated at 2769. Echocardiogram EF 65%. The patient is already on hemodialysis. 2. Paroxysmal atrial fibrillation, currently in sinus rhythm.Was shortly in atrial fib that spontaneously converted. The patient is on Toprol-XL 50 mg daily. 3. Congestive heart failure. On Toprol and lisinopril 40 mg daily and hemodialysis. 4. Coronary artery disease with history of prior stent. Denies any chest pain. On Plavix and metoprolol and Lipitor 80 mg daily. 5. Sepsis. On broad-spectrum IV antibiotics. WD RN Subjective Subjective Had short runs of atrial fib with RVR that self terminated. No CP or SOB Objective Last 24 Hour Vital Signs Date Time Temp Pulse Resp B/P (MAP) Pulse Ox O2 Delivery O2 Flow Rate FiO2 12/25/18 09:00 60 102/57 12/25/18 09:00 102/57 12/25/18 09:00 Nasal Cannula 2.0 12/25/18 08:00 82 12/25/18 08:00 98.8 60 18 102/57 (72) 95 12/25/18 04:00 99.9 64 20 108/51 (70) 97 12/25/18 04:00 75 12/25/18 00:00 99.0 74 18 133/67 (89) 95 12/25/18 00:00 64 12/24/18 21:00 Nasal Cannula 2.0 12/24/18 20:03 93 Nasal Cannula 2.0 28 12/24/18 20:02 71 20 93 Nasal Cannula 2.0 28 12/24/18 20:00 64 12/24/18 20:00 99.2 77 17 129/65 (86) 95 12/24/18 16:00 100.2 116 18 114/62 (79) 95 12/24/18 16:00 65 Intake and Output 12/24/18 12/25/18 19:00 07:00 Intake Total 720 ml 320 ml Output Total 700 ml 300 ml Balance 20 ml 20 ml Intake Oral 720 ml 320 ml Output Urine Total 700 ml 300 ml Laboratory Tests Test 12/25/18 06:20 White Blood Count 7.1 K/UL (4.8-10.8) Red Blood Count 2.83 M/UL (4.70-6.10) L Hemoglobin 8.9 G/DL (14.2-18.0) L Hematocrit 27.3 % (42.0-52.0) L Mean Corpuscular Volume 96 FL (80-99) Mean Corpuscular Hemoglobin 31.5 PG (27.0-31.0) H Mean Corpuscular Hemoglobin Concent 32.7 G/DL (32.0-36.0) Red Cell Distribution Width 12.6 % (11.6-14.8) Platelet Count 168 K/UL (150-450) Mean Platelet Volume 6.6 FL (6.5-10.1) Neutrophils (%) (Auto) 71.3 % (45.0-75.0) Lymphocytes (%) (Auto) 16.0 % (20.0-45.0) L Monocytes (%) (Auto) 10.6 % (1.0-10.0) H Eosinophils (%) (Auto) 1.2 % (0.0-3.0) Basophils (%) (Auto) 0.9 % (0.0-2.0) Sodium Level 138 MMOL/L (136-145) Potassium Level 3.5 MMOL/L (3.5-5.1) Chloride Level 99 MMOL/L (98-107) Carbon Dioxide Level 32 MMOL/L (21-32) Anion Gap 7 mmol/L (5-15) Blood Urea Nitrogen 16 mg/dL (7-18) Creatinine 2.8 MG/DL (0.55-1.30) H Estimat Glomerular Filtration Rate 22.7 mL/min (>60) Glucose Level 138 MG/DL (74-106) #H Calcium Level 8.5 MG/DL (8.5-10.1) Troponin I 0.015 ng/mL (0.000-0.056) Pro-B-Type Natriuretic Peptide 3383 pg/mL (0-125) H Microbiology Date/Time Source Procedure Growth Status 12/24/18 00:57 Blood Blood Culture - Preliminary Resulted 12/24/18 00:47 Blood Blood Culture - Preliminary Resulted 12/24/18 15:45 Sputum Expectorated Gram Stain - Final Resulted 12/24/18 15:45 Sputum Expectorated Sputum Culture Pending Resulted 12/24/18 01:41 Urine,Clean Catch Urine Culture - Preliminary Gram Negative Bacillus 1 Resulted 12/24/18 01:57 Rectum VRE Culture - Final NO VANCOMYCIN RESISTANT ENTEROCOCCUS ... Complete Objective HEAD AND NECK: Shows no JVD. LUNGS: Coarse rhonchi. CARDIOVASCULAR: Shows regular S1 and S2 with no gallop or murmur. ABDOMEN: Soft and nontender. EXTREMITIES: Have no pitting edema. Milan Fields MD Dec 25, 2018 12:09
[2018-12-25] MEDS ORDERED: Ertapenem 500mg ivpb (q24h) IV SCH ×2 (14:00)
--- NOTE | 2018-12-25 14:23 | Infectious Diseases Prog Note ---
Assessment/Plan Problems: (1) Sepsis Assessment & Plan: with gram positive cocci , suspect HD CATHETER INFECTION , recommend to remove and place a new catheter in 48 hours . continue vancomycin empirically pending identification and sensitivity , will order echo to rule out vegetations . will repeat blood culture to confirm clearance (2) HCAP (healthcare-associated pneumonia) Assessment & Plan: with cough, SOB, and high fever continue meropenem and vancomycin empirically pending sputum culture . aspiration precaution (3) Catheter-associated urinary tract infection Assessment & Plan: due to gram negative rods , continue meropenem empirically pending urine culture, may need to change walsh catheter (4) Fever Assessment & Plan: due to the above, continue antibiotics and tylenol as needed (5) ESRD (end stage renal disease) on dialysis Assessment & Plan: has left perm A cath , with clean site and no sign of local infection , continue HD as per renal Subjective Constitutional: Reports: no symptoms HEENT: Reports: no symptoms Respiratory: Reports: dry cough Breasts: Reports: no symptoms Cardiovascular: Reports: no symptoms Gastrointestinal/Abdominal: Reports: no symptoms Genitourinary: Reports: no symptoms Neurologic: Reports: no symptoms Psychiatric: Reports: no symptoms Skin: Reports: no symptoms Endocrine: Reports: no symptoms Hematologic: Reports: no symptoms Musculoskeletal: Reports: no symptoms Allergies: Coded Allergies: No Known Allergies (Unverified , 12/26/12) Objective Vital Signs Last 24 Hour Vital Signs Date Time Temp Pulse Resp B/P (MAP) Pulse Ox O2 Delivery O2 Flow Rate FiO2 12/25/18 12:00 98.9 56 18 99/53 (68) 96 12/25/18 09:00 60 102/57 12/25/18 09:00 102/57 12/25/18 09:00 Nasal Cannula 2.0 12/25/18 08:00 82 12/25/18 08:00 98.8 60 18 102/57 (72) 95 12/25/18 04:00 99.9 64 20 108/51 (70) 97 12/25/18 04:00 75 12/25/18 00:00 99.0 74 18 133/67 (89) 95 12/25/18 00:00 64 12/24/18 21:00 Nasal Cannula 2.0 12/24/18 20:03 93 Nasal Cannula 2.0 28 7/15/19 20:02 71 20 93 Nasal Cannula 2.0 28 12/24/18 20:00 64 12/24/18 20:00 99.2 77 17 129/65 (86) 95 12/24/18 16:00 100.2 116 18 114/62 (79) 95 12/24/18 16:00 65 Height (Feet): 5 Height (Inches): 6.00 Weight (Pounds): 148 General Appearance: WD/WN, no acute distress HEENT: normocephalic, atraumatic, anicteric, mucous membranes moist, PERRL Respiratory/Chest: chest wall non-tender, no respiratory distress, no accessory muscle use, decreased breath sounds, crackles/rales Cardiovascular: normal peripheral pulses, normal rate, regular rhythm, no gallop/murmur, no JVD Abdomen: normal bowel sounds, soft, non tender, no organomegaly, non distended , no mass, no scars Genitourinary: normal external genitalia Extremities: no cyanosis, no clubbing Skin: no rash, no lesions, no ulcers 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: alert, responsive Lymphatic: no neck adenopathy, no groin adenopathy Musculoskeletal: normal muscle bulk, no effusion Microbiology Date/Time Source Procedure Growth Status 12/24/18 00:57 Blood Blood Culture - Preliminary Resulted 12/24/18 00:47 Blood Blood Culture - Preliminary Resulted 12/24/18 15:45 Sputum Expectorated Gram Stain - Final Resulted 12/24/18 15:45 Sputum Expectorated Sputum Culture Pending Resulted 12/24/18 01:41 Urine,Clean Catch Urine Culture - Preliminary Gram Negative Bacillus 1 Resulted 12/24/18 01:57 Rectum VRE Culture - Final NO VANCOMYCIN RESISTANT ENTEROCOCCUS ... Complete Laboratory Tests Test 12/25/18 06:20 White Blood Count 7.1 K/UL (4.8-10.8) Red Blood Count 2.83 M/UL (4.70-6.10) L Hemoglobin 8.9 G/DL (14.2-18.0) L Hematocrit 27.3 % (42.0-52.0) L Mean Corpuscular Volume 96 FL (80-99) Mean Corpuscular Hemoglobin 31.5 PG (27.0-31.0) H Mean Corpuscular Hemoglobin Concent 32.7 G/DL (32.0-36.0) Red Cell Distribution Width 12.6 % (11.6-14.8) Platelet Count 168 K/UL (150-450) Mean Platelet Volume 6.6 FL (6.5-10.1) Neutrophils (%) (Auto) 71.3 % (45.0-75.0) Lymphocytes (%) (Auto) 16.0 % (20.0-45.0) L Monocytes (%) (Auto) 10.6 % (1.0-10.0) H Eosinophils (%) (Auto) 1.2 % (0.0-3.0) Basophils (%) (Auto) 0.9 % (0.0-2.0) Sodium Level 138 MMOL/L (136-145) Potassium Level 3.5 MMOL/L (3.5-5.1) Chloride Level 99 MMOL/L (98-107) Carbon Dioxide Level 32 MMOL/L (21-32) Anion Gap 7 mmol/L (5-15) Blood Urea Nitrogen 16 mg/dL (7-18) Creatinine 2.8 MG/DL (0.55-1.30) H Estimat Glomerular Filtration Rate 22.7 mL/min (>60) Glucose Level 138 MG/DL (74-106) #H Calcium Level 8.5 MG/DL (8.5-10.1) Troponin I 0.015 ng/mL (0.000-0.056) Pro-B-Type Natriuretic Peptide 3383 pg/mL (0-125) H Current Medications Medications (Trade) Dose Ordered Sig/Kevin Route PRN Reason Start Time Stop Time Status Last Admin Dose Admin Acetaminophen (Tylenol) 650 mg Q6H PRN ORAL Mild Pain/Temp > 100.5 12/24/18 05:45 01/23/19 05:44 12/24/18 09:42 Albuterol/ Ipratropium (Albuterol/ Ipratropium) 3 ml Q4H PRN HHN Shortness of Breath 12/24/18 05:30 12/29/18 05:29 Aripiprazole (Abilify) 10 mg DAILY ORAL 12/24/18 09:00 01/23/19 08:59 12/25/18 09:20 Atorvastatin Calcium (Lipitor) 80 mg BEDTIME ORAL 12/24/18 21:00 01/23/19 20:59 12/24/18 21:12 Bethanechol Chloride (Urecholine) 25 mg THREE TIMES A DAY ORAL 12/24/18 09:00 01/23/19 08:59 12/25/18 12:14 Bisacodyl (Dulcolax) 10 mg DAILY ORAL 12/24/18 09:00 01/23/19 08:59 12/25/18 09:20 Clopidogrel Bisulfate (Plavix) 75 mg DAILY ORAL 12/24/18 09:00 01/23/19 08:59 12/25/18 09:20 Dextrose (Dextrose 50%) 25 ml Q30M PRN IV Hypoglycemia 12/24/18 05:30 01/23/19 05:29 Dextrose (Dextrose 50%) 50 ml Q30M PRN IV Hypoglycemia 12/24/18 05:30 01/23/19 05:29 Diphenhydramine HCl (Benadryl) 50 mg Q6H PRN ORAL Itching 12/24/18 05:45 01/23/19 05:44 Docusate Sodium (Colace) 250 mg TWICE A DAY ORAL 12/24/18 09:00 01/23/19 08:59 12/25/18 09:20 Epoetin Kimani (Epoetin Kimani(ESRD on dialysis)) 2,000 unit SUBQ 12/26/18 21:00 01/25/19 20:59 Epoetin Kimani (Epoetin Kimani(ESRD on dialysis)) 3,000 unit SUBQ 12/26/18 21:00 01/25/19 20:59 Famotidine (Pepcid) 20 mg BID ORAL 12/24/18 09:00 01/23/19 08:59 12/25/18 09:20 Fluticasone Propionate (Flonase) 1 spray DAILY NASAL 12/24/18 09:00 01/23/19 08:59 12/25/18 09:25 Insulin Aspart (NovoLOG) BEFORE MEALS AND HS SUBQ 12/24/18 06:30 01/23/19 06:29 12/25/18 11:54 Lisinopril (Prinivil) 40 mg DAILY ORAL 12/24/18 09:00 01/23/19 08:59 12/24/18 09:32 Meropenem 500 mg/ Sodium Chloride 55 ml @ 110 mls/hr Q24H IVPB 12/25/18 21:00 12/30/18 20:59 Metoprolol Succinate (Toprol XL) 50 mg DAILY ORAL 12/24/18 09:00 01/23/19 08:59 12/24/18 09:36 Ondansetron HCl (Zofran) 4 mg Q4H PRN IVP Nausea & Vomiting 12/24/18 12:00 01/23/19 11:59 12/24/18 12:00 Promethazine HCl/ Dextromethorphan (Phenergan DM) 6.25 mg Q8H PRN ORAL For Cough 12/24/18 10:30 01/23/19 10:29 12/24/18 12:00 Tamsulosin HCl (Flomax) 0.4 mg DAILY ORAL 12/24/18 09:00 01/23/19 08:59 12/25/18 09:20 Trazodone HCl (Desyrel) 100 mg BEDTIME ORAL 12/24/18 21:00 01/23/19 20:59 12/24/18 21:11 Vancomycin HCl (Vanco rx to dose) 1 ea DAILY PRN MISC Per rx protocol 12/24/18 13:45 01/23/19 13:44 Bertin Rothman M.D. Dec 25, 2018 14:23
--- NOTE | 2018-12-25 14:46 | NUR ---
RD ASSESSMENT & RECOMMENDATIONS SEE CARE ACTIVITY FOR COMPLETE ASSESSMENT DAILY ESTIMATED NEEDS: Needs based on ESRD on HD 67kg 30-35 kcals/kg 6691-6710 total kcals 1.2-1.8 g protein/kg 80-115 g total protein Fluid per MD, on HD NUTRITION DIAGNOSIS: Increased kcal and pro needs r/t ESRD as evidenced by pt on HD. PO DIET RECOMMENDATIONS: CCHO MED/ RENAL / KOSHER DIET ADDITIONAL RECOMMENDATIONS: 1) Add NEPRO 1 can daily -> pt w/ variable po intake 2) Obtain a calibrated bed scale wt POST HD 3) Snacks in b/w meals
--- NOTE | 2018-12-25 15:54 | NUR ---
CASE MANAGEMENT:REVIEW 12/25/18 SI:SEPSIS. PNA. ESRD/HD 98.9 56 18 99/53 96% ON 2L/NC H/H-8.9/27.3 CR+2.8 IS: IV MEROPENEM Q24 ABILIFY PO QD URECHOLINE PO TID PLAVIX PO QD FLONASE QD LISINOPRIL PO QD TOPROL XL PO QD : TELEMETRY STATUS DCP: FROM [facility]
[2018-12-25 16:00] VITALS: BP 110/56
--- NOTE | 2018-12-25 18:23 | Cardiology Report ---
APPROVED REPORT EXAM: Two-dimensional and M-mode echocardiogram with Doppler and color Doppler. INDICATION Congestive Heart Failure M-Mode DIMENSIONS IVSd0.9 (0.7-1.1cm)Left Atrium (MM)3.7 (1.6-4.0cm) LVDd3.6 (3.5-5.6cm)Aortic Root3.2 (2.0-3.7cm) PWd1.0 (0.7-1.1cm)Aortic Cusp Exc.1.9 (1.5-2.0cm) LVDs2.4 (2.5-4.0cm) PWs1.2 cm Normal left ventricular chamber size, systolic function and wall motion . Left ventricular ejection fraction estimated to be 60-65%. No evidence of left ventricular hypertrophy . No evidence of pericardial effusion All cardiac chamber sizes are within normal limits. Aortic valve calcification with normal cusp excursion . Mildly thickened mitral valve leaflets with normal excursion. Mild mitral annulus and aortic root calcification. Pulmonic valve not well visualized. Normal tricuspid valve structure IVC at normal size without physiologic collapse . A color flow and spectral Doppler study was performed and revealed: No aortic insufficiency . Mitral inflow indicate normal left ventricular diastolic function. Mild mitral regurgitation. Mild tricuspid regurgitation. Tricuspid systolic velocities suggests peak right ventricular systolic pressure of 33mmHg. No pulmonic regurgitation present.
[2018-12-25] MEDS: Promethazine/DM 6.25mg/5ml ORAL PRN (18:53)
--- NOTE | 2018-12-25 19:35 | NUR ---
HAND-OFF: Report given to TAYLOR Youngblood.
--- NOTE | 2018-12-25 19:36 | NUR ---
NURSE NOTES: Got report from Rupali VAZQUEZ. Pt in stable condition. Denies any pain. No s/s of distress or discomfort noted. Pt resting in bed comfortably. bed in low and locked position, call light within reach, bedside table within reach. Continue to monitor.
[2018-12-25 20:00] VITALS: BP 111/61
[2018-12-25] MEDS: TraZODone 100mg tab ORAL SCH (20:45)
[2018-12-25] MEDS: Atorvastatin 80mg tab ORAL SCH (20:46)
[2018-12-25] MEDS ORDERED: Meropenem 500mg/NS 55ml IVPB SCH ×2 (21:00)
[2018-12-26] VITALS: BP 104/58
[2018-12-26 04:12] VITALS: BP 121/63
[2018-12-26] MEDS: Promethazine/DM 6.25mg/5ml ORAL PRN ×2 (06:13→22:34)
[2018-12-26] MEDS: NovoLOG Insulin Flexpen SUBQ SCH ×4 (06:15→22:24)
--- NOTE | 2018-12-26 07:00 | NUR ---
HAND-OFF: Report given to Cirilo VAZQUEZ. Endorsed plan of care.
[2018-12-26 07:30] LABS: BASOPHILS % (AUTO) 1.3 % (0.0-2.0); HEMATOCRIT 26.5 % (42.0-52.0); HEMOGLOBIN 8.7 G/DL (14.2-18.0); LYMPHOCYTES % (AUTO) 19.6 % (20.0-45.0); MEAN CORPUSCULAR VOLUME 97 FL (80-99); MONOCYTES % (AUTO) 14.1 % (1.0-10.0); NEUTROPHILS % (AUTO) 60.9 % (45.0-75.0); PLATELET COUNT 158 K/UL (150-450); RED BLOOD COUNT 2.74 M/UL (4.70-6.10); RED CELL DISTRIBUTION WIDTH 12.4 % (11.6-14.8); WHITE BLOOD COUNT 4.3 K/UL (4.8-10.8)
--- NOTE | 2018-12-26 07:40 | NUR ---
NURSE NOTES: Received report from TAYLOR Youngblood. Patient in bed resting, no active s/s cardiac, respiratory distress noticed at this time. Patient on 2L oxygen via NC, AOX4, SR with HR 64. Endorsed one dose of Tylenol given for fever of 100.5 last night, schedule for HD today with [facility]. IV on right FA 22G, asymptomatic, patent, intact. Permacath on left upper chest. Bed in lowest position, side rails upx2, call light within reach, bed alarm on. Will continue to monitor.
--- NOTE | 2018-12-26 07:54 | Nephrology Progress Note ---
Assessment/Plan Status: stable Assessment/Plan: A/P 1) ESRD- HD MWF. Orders placed for today 2) Sepsis- CAP and UTI - Abx per ID mgmt 3) Anemia of CKD- add EPO with HD with Hgb goal >10 4) HTN- stable 5) DM- per PCP. Metformin discontinued Subjective Date patient seen: Dec 26, 2018 Time patient seen: 07:53 ROS Limited/Unobtainable: No Allergies: Coded Allergies: No Known Allergies (Unverified , 12/26/12) Subjective Patient resting and in no distress and breathing improved Objective Last 24 Hour Vital Signs Date Time Temp Pulse Resp B/P (MAP) Pulse Ox O2 Delivery O2 Flow Rate FiO2 12/26/18 04:12 98.0 64 18 121/63 (82) 95 12/26/18 04:06 60 12/26/18 00:30 99.0 12/26/18 00:00 60 12/26/18 00:00 100.4 61 18 104/58 (73) 96 12/25/18 21:08 72 18 97 Nasal Cannula 2.0 28 12/25/18 21:08 97 Nasal Cannula 2.0 28 12/25/18 21:00 Nasal Cannula 2.0 12/25/18 20:00 75 12/25/18 20:00 98.8 72 18 111/61 (78) 98 12/25/18 16:00 97.8 61 17 110/56 (74) 98 12/25/18 16:00 60 12/25/18 12:00 80 12/25/18 12:00 98.9 56 18 99/53 (68) 96 12/25/18 09:00 60 102/57 12/25/18 09:00 102/57 12/25/18 09:00 Nasal Cannula 2.0 12/25/18 08:00 82 12/25/18 08:00 98.8 60 18 102/57 (72) 95 Intake and Output 12/25/18 12/26/18 18:59 06:59 Intake Total 800 ml 240 ml Output Total 800 ml Balance 0 ml 240 ml Intake Oral 240 ml Other 800 ml Output Urine Total 800 ml Laboratory Tests 12/26/18 05:46: White Blood Count 4.3L, Red Blood Count 2.74L, Hemoglobin 8.7L, Hematocrit 26.5L , Mean Corpuscular Volume 97, Mean Corpuscular Hemoglobin 31.7H, Mean Corpuscular Hemoglobin Concent 32.9, Red Cell Distribution Width 12.4, Platelet Count 158, Mean Platelet Volume 6.5, Neutrophils (%) (Auto) 60.9, Lymphocytes (% ) (Auto) 19.6L, Monocytes (%) (Auto) 14.1H, Eosinophils (%) (Auto) 4.0H, Basophils (%) (Auto) 1.3, Sodium Level [Pending], Potassium Level [Pending], Chloride Level [Pending], Carbon Dioxide Level [Pending], Blood Urea Nitrogen [ Pending], Creatinine [Pending], Estimat Glomerular Filtration Rate [Pending], Glucose Level [Pending], Calcium Level [Pending], Random Vancomycin Level [ Pending] Height (Feet): 5 Height (Inches): 6.00 Weight (Pounds): 145 General Appearance: no apparent distress EENT: normal ENT inspection Neck: normal alignment, supple Cardiovascular: normal rate, regular rhythm Respiratory/Chest: rhonchi - bilaterally Edema: no edema noted Arm (L), no edema noted Arm (R), no edema noted Leg (L), no edema noted Leg (R), no edema noted Pedal (L), no edema noted Pedal (R), no edema noted Generalized Mendez Roman MD Dec 26, 2018 07:54
[2018-12-26 07:55] LABS: ANION GAP 6 mmol/L (5-15); BLOOD UREA NITROGEN 24 mg/dL (7-18); CARBON DIOXIDE 33 MMOL/L (21-32); CHLORIDE 99 MMOL/L (98-107); CREATININE 3.5 MG/DL (0.55-1.30); POTASSIUM 3.3 MMOL/L (3.5-5.1); SODIUM 138 MMOL/L (136-145)
[2018-12-26 08:00] VITALS: BP 109/59
--- NOTE | 2018-12-26 08:10 | NUR ---
NURSE NOTES: Dr. Roman at the nursing station, made aware of K level today 3.3 and schedule for HD today, no order given at this time, will continue to monitor.
--- NOTE | 2018-12-26 08:46 | NUR ---
CASE MANAGEMENT:REVIEW 12/26/18 SI:SEPSIS. PNA. ESRD/HD 100.4 61 18 104/58 96% ON 2L/NC H/H-8.7/26.5 K-3.3 BUN+24 CR+3.5 IS: IV VANCOMYCIN X1 IV MEROPENEM Q24 ABILIFY PO QD URECHOLINE PO TID PLAVIX PO QD FLONASE QD LISINOPRIL PO QD TOPROL XL PO QD : TELEMETRY STATUS DCP: FROM [facility]
--- NOTE | 2018-12-26 08:57 | General Progress Note ---
Assessment/Plan Status: stable Assessment/Plan: 1. pneumonia - improved. Cont meripenam and vanco. ID following. f/u cultures. 2. CHF - improved sob. excess fluid removed with HD. 3. H/O A Fib with RVR, currently on NSR. will discuss with cardiologis. 4. UTI - cont broad spectrum abx and f/u u/a and cx. 5. Sepsis - cont IV abx and change walsh cath. Awaiting repeat blood cultures. ID following. 6. CRF on HD - renal for HD. 7. DM II - SSI. 8. BPH - cont home meds. 9. HTN - cont home meds. 10. Chronic urinary Retention - 11. HLD - cont home meds. 12. CAD - stable. 13. Asthma - cont home meds. 14. Mood disorder - cont home meds. Subjective Date patient seen: Dec 26, 2018 Time patient seen: 08:45 Constitutional: Reports: fever HEENT: Reports: no symptoms Cardiovascular: Reports: no symptoms Respiratory: Reports: no symptoms Gastrointestinal/Abdominal: Reports: no symptoms Genitourinary: Reports: no symptoms 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: Reports: no symptoms Endocrine: Reports: no symptoms Hematologic/Lymphatic: Reports: no symptoms Allergies: Coded Allergies: No Known Allergies (Unverified , 12/26/12) Subjective His coughing is better. He still has low grade temp. will change folley today. He will have HD today. no sob or chest pain. no nausea or vomiting. Objective Last 24 Hour Vital Signs Date Time Temp Pulse Resp B/P (MAP) Pulse Ox O2 Delivery O2 Flow Rate FiO2 12/26/18 04:12 98.0 64 18 121/63 (82) 95 12/26/18 04:06 60 12/26/18 00:30 99.0 12/26/18 00:00 60 12/26/18 00:00 100.4 61 18 104/58 (73) 96 12/25/18 21:08 72 18 97 Nasal Cannula 2.0 28 12/25/18 21:08 97 Nasal Cannula 2.0 28 12/25/18 21:00 Nasal Cannula 2.0 12/25/18 20:00 75 12/25/18 20:00 98.8 72 18 111/61 (78) 98 12/25/18 16:00 97.8 61 17 110/56 (74) 98 12/25/18 16:00 60 12/25/18 12:00 80 12/25/18 12:00 98.9 56 18 99/53 (68) 96 12/25/18 09:00 60 102/57 12/25/18 09:00 102/57 12/25/18 09:00 Nasal Cannula 2.0 Intake and Output 12/25/18 12/26/18 19:00 07:00 Intake Total 800 ml 240 ml Output Total 800 ml Balance 0 ml 240 ml Intake Oral 240 ml Other 800 ml Output Urine Total 800 ml Laboratory Tests 12/26/18 05:46: White Blood Count 4.3L, Red Blood Count 2.74L, Hemoglobin 8.7L, Hematocrit 26.5L , Mean Corpuscular Volume 97, Mean Corpuscular Hemoglobin 31.7H, Mean Corpuscular Hemoglobin Concent 32.9, Red Cell Distribution Width 12.4, Platelet Count 158, Mean Platelet Volume 6.5, Neutrophils (%) (Auto) 60.9, Lymphocytes (% ) (Auto) 19.6L, Monocytes (%) (Auto) 14.1H, Eosinophils (%) (Auto) 4.0H, Basophils (%) (Auto) 1.3, Sodium Level 138, Potassium Level 3.3L, Chloride Level 99, Carbon Dioxide Level 33H, Anion Gap 6, Blood Urea Nitrogen 24H, Creatinine 3.5H, Estimat Glomerular Filtration Rate 17.6, Glucose Level 109H, Calcium Level 8.0L, Random Vancomycin Level 9.8 Height (Feet): 5 Height (Inches): 6.00 Weight (Pounds): 145 General Appearance: no apparent distress, alert Neck: non-tender, supple Cardiovascular: normal peripheral pulses, normal rate, regular rhythm Respiratory/Chest: lungs clear, normal breath sounds, no respiratory distress Abdomen: normal bowel sounds, non tender, soft Extremities: normal range of motion, non-tender Edema: no edema noted Arm (L), no edema noted Arm (R), no edema noted Leg (L), no edema noted Leg (R), no edema noted Pedal (L), no edema noted Pedal (R), no edema noted Generalized Neurologic: alert, oriented x 3, responsive Skin: warm/dry Lymphatic: normal anterior cervical (L), normal anterior cervical (R), normal posterior cervical (L), normal posterior cervical (R), normal submandibular (L) , normal submandibular (R), normal supraclavicular (L), normal supraclavicular ( R), normal axillary (L), normal axillary (R), normal inguinal (L), normal inguinal (R), normal other Gem Best MD Dec 26, 2018 08:57
[2018-12-26] MEDS: Metoprolol Succinate XL 50mg tab ORAL SCH (09:00)
[2018-12-26] MEDS: Lisinopril 20mg tab ORAL SCH (09:00)
[2018-12-26] MEDS: Docusate 250mg cap ORAL SCH ×2 (09:07→18:16)
[2018-12-26] MEDS: Tamsulosin 0.4mg cap ORAL SCH (09:07)
[2018-12-26] MEDS: Bethanechol 25mg Tab ORAL SCH ×3 (09:07→18:16)
[2018-12-26] MEDS: Flonase Nasal Inhaler 16gm NASAL SCH (09:07)
[2018-12-26] MEDS: Bisacodyl EC 5mg tab ORAL SCH (09:07)
[2018-12-26] MEDS: ARIPiprazole 10mg tab ORAL SCH (09:07)
[2018-12-26] MEDS ORDERED: Vancomycin 1.25gm Premix IVPB SCH (10:00)
--- NOTE | 2018-12-26 10:00 | NUR ---
NURSE NOTES: Urinary Dumont Catheter changed per Dr. Best, 16F, asymptomatic, patent, intact. Will continue to monitor.
--- NOTE | 2018-12-26 11:07 | NUR ---
*-* INSURANCE *-* ALL CLINICALS AND REVIEWS HAVE BEEN FAXED TO: [facility] REF# [id number] F:[phone]
[2018-12-26 12:00] VITALS: BP 125/65
--- NOTE | 2018-12-26 13:04 | Cardiac Electrophysiology PN ---
Assessment/Plan Assessment/Plan 1. Shortness of breath, likely due to underlying pneumonia. His BNP were also elevated at 2769. Echocardiogram EF 65%. The patient is already on hemodialysis. 2. Paroxysmal atrial fibrillation, currently in sinus rhythm. Had brief atrial fib that self terminated. On Toprol-XL 50 mg daily. 3. Congestive heart failure. On Toprol,lisinopril 40 daily and hemodialysis. 4. Coronary artery disease with history of prior stent. Denies any chest pain. On Plavix and metoprolol and Lipitor 80 mg daily. 5. Sepsis. On broad-spectrum IV antibiotics. RICKY RN DC planning today Subjective Subjective Getting HD. In Sinus seng. No CP or SOB Objective Last 24 Hour Vital Signs Date Time Temp Pulse Resp B/P (MAP) Pulse Ox O2 Delivery O2 Flow Rate FiO2 12/26/18 09:00 Nasal Cannula 2.0 12/26/18 09:00 61 109/59 12/26/18 09:00 109/59 12/26/18 08:00 66 12/26/18 08:00 98.2 61 20 109/59 (76) 97 12/26/18 04:12 98.0 64 18 121/63 (82) 95 12/26/18 04:06 60 12/26/18 00:30 99.0 12/26/18 00:00 60 12/26/18 00:00 100.4 61 18 104/58 (73) 96 12/25/18 21:08 72 18 97 Nasal Cannula 2.0 28 12/25/18 21:08 97 Nasal Cannula 2.0 28 12/25/18 21:00 Nasal Cannula 2.0 12/25/18 20:00 75 12/25/18 20:00 98.8 72 18 111/61 (78) 98 12/25/18 16:00 97.8 61 17 110/56 (74) 98 12/25/18 16:00 60 Intake and Output 12/25/18 12/26/18 19:00 07:00 Intake Total 800 ml 240 ml Output Total 800 ml Balance 0 ml 240 ml Intake Oral 240 ml Other 800 ml Output Urine Total 800 ml Laboratory Tests Test 12/26/18 05:46 White Blood Count 4.3 K/UL (4.8-10.8) L Red Blood Count 2.74 M/UL (4.70-6.10) L Hemoglobin 8.7 G/DL (14.2-18.0) L Hematocrit 26.5 % (42.0-52.0) L Mean Corpuscular Volume 97 FL (80-99) Mean Corpuscular Hemoglobin 31.7 PG (27.0-31.0) H Mean Corpuscular Hemoglobin Concent 32.9 G/DL (32.0-36.0) Red Cell Distribution Width 12.4 % (11.6-14.8) Platelet Count 158 K/UL (150-450) Mean Platelet Volume 6.5 FL (6.5-10.1) Neutrophils (%) (Auto) 60.9 % (45.0-75.0) Lymphocytes (%) (Auto) 19.6 % (20.0-45.0) L Monocytes (%) (Auto) 14.1 % (1.0-10.0) H Eosinophils (%) (Auto) 4.0 % (0.0-3.0) H Basophils (%) (Auto) 1.3 % (0.0-2.0) Sodium Level 138 MMOL/L (136-145) Potassium Level 3.3 MMOL/L (3.5-5.1) L Chloride Level 99 MMOL/L (98-107) Carbon Dioxide Level 33 MMOL/L (21-32) H Anion Gap 6 mmol/L (5-15) Blood Urea Nitrogen 24 mg/dL (7-18) H Creatinine 3.5 MG/DL (0.55-1.30) H Estimat Glomerular Filtration Rate 17.6 mL/min (>60) Glucose Level 109 MG/DL (74-106) H Calcium Level 8.0 MG/DL (8.5-10.1) L Random Vancomycin Level 9.8 ug/mL Microbiology Date/Time Source Procedure Growth Status 12/24/18 00:57 Blood Blood Culture - Preliminary Gram Positive Cocci Resulted 12/24/18 00:47 Blood Blood Culture - Preliminary Gram Positive Cocci Resulted 12/24/18 15:45 Sputum Expectorated Gram Stain - Final Complete 12/24/18 15:45 Sputum Expectorated Sputum Culture - Final NORMAL UPPER RESPIRATORY DIONNA PRESENT Complete 12/24/18 01:57 Nasal Nares MRSA Culture - Final NO METHICILLIN RESISTANT STAPH AUREUS... Complete 12/24/18 01:41 Urine,Clean Catch Urine Culture - Final Klebsiella Oxytoca Complete 12/24/18 01:57 Rectum - Final NO CARBAPENEM-RESISTANT ENTEROBACTERI... Complete 12/24/18 01:57 Rectum VRE Culture - Final NO VANCOMYCIN RESISTANT ENTEROCOCCUS ... Complete Objective HEAD AND NECK: No JVD. LUNGS: Coarse rhonchi. CARDIOVASCULAR: Regular S1 and S2 with no gallop or murmur. ABDOMEN: Soft and nontender. EXTREMITIES: No pitting edema. Milan Fields MD Dec 26, 2018 13:03
[2018-12-26 16:00] VITALS: BP 115/45
--- NOTE | 2018-12-26 16:30 | Infectious Diseases Prog Note ---
Assessment/Plan Problems: (1) Sepsis Assessment & Plan: with gram positive cocci , suspect HD CATHETER INFECTION , recommend to remove and place a new catheter in 48 hours . continue vancomycin empirically pending identification and sensitivity , transthoracic echo ruled out vegetations . await repeated blood culture to confirm clearance (2) HCAP (healthcare-associated pneumonia) Assessment & Plan: with cough, SOB, and high fever continue cefepime and vancomycin empirically pending sputum culture . aspiration precaution (3) Catheter-associated urinary tract infection Assessment & Plan: due to klebsiella oxytoca , will switch meropenem empirically to cefepime recommend to change walsh catheter (4) Fever Assessment & Plan: due to the above, improving , continue antibiotics and tylenol as needed (5) ESRD (end stage renal disease) on dialysis Assessment & Plan: has left perm A cath , with clean site and no sign of local infection , but being bacteremic source most likely is his HD catheter , recommend to remove and place a new one in 48 hours , continue HD as per renal Subjective Constitutional: Reports: no symptoms HEENT: Reports: no symptoms Respiratory: Reports: dry cough Breasts: Reports: no symptoms Cardiovascular: Reports: no symptoms Gastrointestinal/Abdominal: Reports: no symptoms Genitourinary: Reports: no symptoms Neurologic: Reports: no symptoms Psychiatric: Reports: no symptoms Skin: Reports: no symptoms Endocrine: Reports: no symptoms Hematologic: Reports: no symptoms Musculoskeletal: Reports: no symptoms Allergies: Coded Allergies: No Known Allergies (Unverified , 12/26/12) Objective Vital Signs Last 24 Hour Vital Signs Date Time Temp Pulse Resp B/P (MAP) Pulse Ox O2 Delivery O2 Flow Rate FiO2 12/26/18 12:00 59 12/26/18 12:00 98.1 58 18 125/65 (85) 100 12/26/18 09:00 Nasal Cannula 2.0 12/26/18 09:00 61 109/59 12/26/18 09:00 109/59 12/26/18 08:00 66 12/26/18 08:00 98.2 61 20 109/59 (76) 97 12/26/18 04:12 98.0 64 18 121/63 (82) 95 12/26/18 04:06 60 12/26/18 00:30 99.0 12/26/18 00:00 60 12/26/18 00:00 100.4 61 18 104/58 (73) 96 12/25/18 21:08 72 18 97 Nasal Cannula 2.0 28 12/25/18 21:08 97 Nasal Cannula 2.0 28 12/25/18 21:00 Nasal Cannula 2.0 12/25/18 20:00 75 12/25/18 20:00 98.8 72 18 111/61 (78) 98 Height (Feet): 5 Height (Inches): 6.00 Weight (Pounds): 145 General Appearance: WD/WN, no acute distress HEENT: normocephalic, atraumatic, anicteric, mucous membranes moist, PERRL Respiratory/Chest: chest wall non-tender, no respiratory distress, no accessory muscle use, decreased breath sounds, crackles/rales Cardiovascular: normal peripheral pulses, normal rate, regular rhythm, no gallop/murmur, no JVD Abdomen: normal bowel sounds, soft, non tender, no organomegaly, non distended , no mass, no scars Genitourinary: normal external genitalia Extremities: no cyanosis, no clubbing Skin: no rash, no lesions, no ulcers 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 Complete 12/24/18 01:41 Urine,Clean Catch Urine Culture - Final Klebsiella Oxytoca Complete 12/24/18 01:57 Rectum - Final NO CARBAPENEM-RESISTANT ENTEROBACTERI... Complete 12/24/18 01:57 Rectum VRE Culture - Final NO VANCOMYCIN RESISTANT ENTEROCOCCUS ... Complete Laboratory Tests Test 12/26/18 05:46 White Blood Count 4.3 K/UL (4.8-10.8) L Red Blood Count 2.74 M/UL (4.70-6.10) L Hemoglobin 8.7 G/DL (14.2-18.0) L Hematocrit 26.5 % (42.0-52.0) L Mean Corpuscular Volume 97 FL (80-99) Mean Corpuscular Hemoglobin 31.7 PG (27.0-31.0) H Mean Corpuscular Hemoglobin Concent 32.9 G/DL (32.0-36.0) Red Cell Distribution Width 12.4 % (11.6-14.8) Platelet Count 158 K/UL (150-450) Mean Platelet Volume 6.5 FL (6.5-10.1) Neutrophils (%) (Auto) 60.9 % (45.0-75.0) Lymphocytes (%) (Auto) 19.6 % (20.0-45.0) L Monocytes (%) (Auto) 14.1 % (1.0-10.0) H Eosinophils (%) (Auto) 4.0 % (0.0-3.0) H Basophils (%) (Auto) 1.3 % (0.0-2.0) Sodium Level 138 MMOL/L (136-145) Potassium Level 3.3 MMOL/L (3.5-5.1) L Chloride Level 99 MMOL/L (98-107) Carbon Dioxide Level 33 MMOL/L (21-32) H Anion Gap 6 mmol/L (5-15) Blood Urea Nitrogen 24 mg/dL (7-18) H Creatinine 3.5 MG/DL (0.55-1.30) H Estimat Glomerular Filtration Rate 17.6 mL/min (>60) Glucose Level 109 MG/DL (74-106) H Calcium Level 8.0 MG/DL (8.5-10.1) L Random Vancomycin Level 9.8 ug/mL Current Medications Medications (Trade) Dose Ordered Sig/Kevin Route PRN Reason Start Time Stop Time Status Last Admin Dose Admin Acetaminophen (Tylenol) 650 mg Q6H PRN ORAL Mild Pain/Temp > 100.5 12/24/18 05:45 01/23/19 05:44 12/25/18 23:50 Albuterol/ Ipratropium (Albuterol/ Ipratropium) 3 ml Q4H PRN HHN Shortness of Breath 12/24/18 05:30 12/29/18 05:29 Aripiprazole (Abilify) 10 mg DAILY ORAL 12/24/18 09:00 01/23/19 08:59 12/26/18 09:07 Atorvastatin Calcium (Lipitor) 80 mg BEDTIME ORAL 12/24/18 21:00 01/23/19 20:59 12/25/18 20:46 Bethanechol Chloride (Urecholine) 25 mg THREE TIMES A DAY ORAL 12/24/18 09:00 01/23/19 08:59 12/26/18 13:07 Bisacodyl (Dulcolax) 10 mg DAILY ORAL 12/24/18 09:00 01/23/19 08:59 12/26/18 09:07 Clopidogrel Bisulfate (Plavix) 75 mg DAILY ORAL 12/24/18 09:00 01/23/19 08:59 12/26/18 09:07 Dextrose (Dextrose 50%) 25 ml Q30M PRN IV Hypoglycemia 12/24/18 05:30 01/23/19 05:29 Dextrose (Dextrose 50%) 50 ml Q30M PRN IV Hypoglycemia 12/24/18 05:30 01/23/19 05:29 Diphenhydramine HCl (Benadryl) 50 mg Q6H PRN ORAL Itching 12/24/18 05:45 01/23/19 05:44 Docusate Sodium (Colace) 250 mg TWICE A DAY ORAL 12/24/18 09:00 01/23/19 08:59 12/26/18 09:07 Epoetin Kimani (Epoetin Kimani(ESRD on dialysis)) 2,000 unit SUBQ 12/26/18 21:00 01/25/19 20:59 Epoetin Kimani (Epoetin Kimani(ESRD on dialysis)) 3,000 unit SUBQ 12/26/18 21:00 01/25/19 20:59 Famotidine (Pepcid) 20 mg BID ORAL 12/24/18 09:00 01/23/19 08:59 12/26/18 09:07 Fluticasone Propionate (Flonase) 1 spray DAILY NASAL 12/24/18 09:00 01/23/19 08:59 12/26/18 09:07 Insulin Aspart (NovoLOG) BEFORE MEALS AND HS SUBQ 12/24/18 06:30 01/23/19 06:29 12/26/18 13:06 Lisinopril (Prinivil) 40 mg DAILY ORAL 12/24/18 09:00 01/23/19 08:59 12/24/18 09:32 Meropenem 500 mg/ Sodium Chloride 55 ml @ 110 mls/hr Q24H IVPB 12/25/18 21:00 12/30/18 20:59 12/25/18 20:46 Metoprolol Succinate (Toprol XL) 50 mg DAILY ORAL 12/24/18 09:00 01/23/19 08:59 12/24/18 09:36 Ondansetron HCl (Zofran) 4 mg Q4H PRN IVP Nausea & Vomiting 12/24/18 12:00 01/23/19 11:59 12/24/18 12:00 Promethazine HCl/ Dextromethorphan (Phenergan DM) 6.25 mg Q8H PRN ORAL For Cough 12/24/18 10:30 01/23/19 10:29 12/26/18 06:13 Tamsulosin HCl (Flomax) 0.4 mg DAILY ORAL 12/24/18 09:00 01/23/19 08:59 12/26/18 09:07 Trazodone HCl (Desyrel) 100 mg BEDTIME ORAL 12/24/18 21:00 01/23/19 20:59 12/25/18 20:45 Vancomycin HCl (Vanco rx to dose) 1 ea DAILY PRN MISC Per rx protocol 12/24/18 13:45 01/23/19 13:44 Bertin Rothman M.D. Dec 26, 2018 16:29
[2018-12-26] MEDS: Cefepime HCl 1 GM in D5W 55 ML IVPB SCH (18:16)
--- NOTE | 2018-12-26 19:59 | NUR ---
NURSE NOTES: Received pt from TAYLOR Kerr. Pt is awake and resting in bed, in no acute distress. Iv site intact. Bed locked in lowest position, call light within reach. Will continue with plan of care.
[2018-12-26 20:00] VITALS: BP 114/64
--- NOTE | 2018-12-26 20:03 | NUR ---
HAND-OFF: Report given to TAYLOR Pretty. Endorse patient received HD today 2L out, tolerating well.
[2018-12-26] MEDS: TraZODone 100mg tab ORAL SCH (22:08)
[2018-12-26] MEDS: Epoetin Alfa-EPBX(ESRD on dialysis)2000 units/ml vial SUBQ SCH (22:09)
[2018-12-26] MEDS: Epoetin Alfa-EPBX(ESRD on dialysis)3000 units/ml vial SUBQ SCH (22:09)
[2018-12-26] MEDS: Atorvastatin 80mg tab ORAL SCH (22:09)
[2018-12-27] VITALS (8 sets, daily range): BP systolic 107–145; BP diastolic 54–80
[2018-12-27] MEDS: NovoLOG Insulin Flexpen SUBQ SCH ×4 (06:20→20:45)
[2018-12-27 07:15] LABS: EOSINOPHILS % (AUTO) 3.6 % (0.0-3.0); HEMATOCRIT 29.5 % (42.0-52.0); HEMOGLOBIN 9.6 G/DL (14.2-18.0); LYMPHOCYTES % (AUTO) 28.2 % (20.0-45.0); MEAN CORPUSCULAR VOLUME 97 FL (80-99); MONOCYTES % (AUTO) 13.2 % (1.0-10.0); NEUTROPHILS % (AUTO) 53.9 % (45.0-75.0); PLATELET COUNT 209 K/UL (150-450); RED BLOOD COUNT 3.05 M/UL (4.70-6.10); RED CELL DISTRIBUTION WIDTH 12.6 % (11.6-14.8); WHITE BLOOD COUNT 5.6 K/UL (4.8-10.8)
[2018-12-27 07:47] LABS: ANION GAP 8 mmol/L (5-15); BLOOD UREA NITROGEN 24 mg/dL (7-18); CALCIUM 8.6 MG/DL (8.5-10.1); CARBON DIOXIDE 32 MMOL/L (21-32); CHLORIDE 100 MMOL/L (98-107); SODIUM 139 MMOL/L (136-145)
--- NOTE | 2018-12-27 07:53 | Nephrology Progress Note ---
Assessment/Plan Status: stable Assessment/Plan: A/P 1) ESRD- HD MWF. - OK for DC from renal point 2) Sepsis- CAP and UTI - Abx per ID mgmt 3) Anemia of CKD- EPO with HD with Hgb goal >10 4) HTN- stable 5) DM- per PCP. Metformin discontinued Subjective Date patient seen: Dec 27, 2018 Time patient seen: 07:47 ROS Limited/Unobtainable: No Allergies: Coded Allergies: No Known Allergies (Unverified , 12/26/12) Subjective Patient resting feeling better. Objective Last 24 Hour Vital Signs Date Time Temp Pulse Resp B/P (MAP) Pulse Ox O2 Delivery O2 Flow Rate FiO2 12/27/18 04:00 99.1 72 24 107/54 (71) 98 12/27/18 04:00 72 12/27/18 00:00 59 12/27/18 00:00 98.1 59 20 121/62 (81) 97 12/26/18 21:00 Nasal Cannula 2.0 12/26/18 20:00 65 12/26/18 20:00 99.6 65 20 114/64 (81) 95 12/26/18 16:00 97.1 65 18 115/45 (68) 97 12/26/18 16:00 73 12/26/18 12:00 59 12/26/18 12:00 98.1 58 18 125/65 (85) 100 12/26/18 09:00 Nasal Cannula 2.0 12/26/18 09:00 61 109/59 12/26/18 09:00 109/59 12/26/18 08:00 66 12/26/18 08:00 98.2 61 20 109/59 (76) 97 Intake and Output 12/26/18 12/27/18 19:00 07:00 Intake Total 360 ml 240 ml Balance 360 ml 240 ml Intake Oral 360 ml 240 ml # Bowel Movements 1 Laboratory Tests 12/27/18 06:22: White Blood Count 5.6, Red Blood Count 3.05L, Hemoglobin 9.6L, Hematocrit 29.5L , Mean Corpuscular Volume 97, Mean Corpuscular Hemoglobin 31.5H, Mean Corpuscular Hemoglobin Concent 32.5, Red Cell Distribution Width 12.6, Platelet Count 209, Mean Platelet Volume 6.3L, Neutrophils (%) (Auto) 53.9, Lymphocytes ( %) (Auto) 28.2, Monocytes (%) (Auto) 13.2H, Eosinophils (%) (Auto) 3.6H, Basophils (%) (Auto) 1.0, Sodium Level [Pending], Potassium Level [Pending], Chloride Level [Pending], Carbon Dioxide Level [Pending], Blood Urea Nitrogen [ Pending], Creatinine [Pending], Estimat Glomerular Filtration Rate [Pending], Glucose Level [Pending], Calcium Level [Pending], Random Vancomycin Level [ Pending] Height (Feet): 5 Height (Inches): 6.00 Weight (Pounds): 145 General Appearance: no apparent distress EENT: normal ENT inspection Neck: normal alignment, normal inspection Cardiovascular: regular rhythm Respiratory/Chest: lungs clear Abdomen: non tender, soft Edema: no edema noted Arm (L), no edema noted Arm (R), no edema noted Leg (L), no edema noted Leg (R), no edema noted Pedal (L), no edema noted Pedal (R), no edema noted Generalized Mendez Roman MD Dec 27, 2018 07:53
--- NOTE | 2018-12-27 07:55 | NUR ---
HAND-OFF: Report given to TAYLOR Bush. Endorsed plan of care.
[2018-12-27] MEDS: Docusate 250mg cap ORAL SCH ×2 (08:58→16:36)
[2018-12-27] MEDS: Tamsulosin 0.4mg cap ORAL SCH (08:58)
[2018-12-27] MEDS: Bisacodyl EC 5mg tab ORAL SCH (08:58)
[2018-12-27] MEDS: Lisinopril 20mg tab ORAL SCH (08:59)
[2018-12-27] MEDS: Metoprolol Succinate XL 50mg tab ORAL SCH (09:03)
[2018-12-27] MEDS: ARIPiprazole 10mg tab ORAL SCH (09:03)
[2018-12-27] MEDS: Bethanechol 25mg Tab ORAL SCH ×3 (09:03→16:36)
--- NOTE | 2018-12-27 09:15 | General Progress Note ---
Assessment/Plan Status: stable Assessment/Plan: 1. pneumonia - improved. Cont meripenam and vanco. ID following. f/u cultures. 2. CHF - improved sob. excess fluid removed with HD. 3. H/O A Fib with RVR, currently on NSR. cardiology following. 4. UTI - cont broad spectrum abx and f/u u/a and cx. 5. Sepsis - cont IV abx and put new walsh cath. repeat blood cultures neg x one day. ID following. 6. CRF on HD - renal for HD. Discussed with Renal and ID and we will call Dr terrazas to remove the cath and put new Perm A Cath. 7. DM II - SSI. 8. BPH - cont home meds. 9. HTN - cont home meds. 10. Chronic urinary Retention - 11. HLD - cont home meds. 12. CAD - stable. 13. Asthma - cont home meds. 14. Mood disorder - cont home meds. Subjective Date patient seen: Dec 27, 2018 Time patient seen: 09:00 Constitutional: Reports: no symptoms HEENT: Reports: no symptoms Cardiovascular: Reports: no symptoms Respiratory: Reports: no symptoms Gastrointestinal/Abdominal: Reports: no symptoms Genitourinary: Reports: no symptoms 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: Reports: no symptoms Endocrine: Reports: no symptoms Hematologic/Lymphatic: Reports: no symptoms Allergies: Coded Allergies: No Known Allergies (Unverified , 12/26/12) Subjective His coughing is better. His temp has decreased. will put new folley today. no sob or chest pain. no nausea or vomiting. Objective Last 24 Hour Vital Signs Date Time Temp Pulse Resp B/P (MAP) Pulse Ox O2 Delivery O2 Flow Rate FiO2 12/27/18 09:03 84 113/71 12/27/18 08:36 98.6 84 18 113/71 (85) 96 12/27/18 08:04 96 Nasal Cannula 2.0 28 12/27/18 08:04 83 16 96 Nasal Cannula 2.0 28 12/27/18 04:00 99.1 72 24 107/54 (71) 98 12/27/18 04:00 72 12/27/18 00:00 59 12/27/18 00:00 98.1 59 20 121/62 (81) 97 12/26/18 21:00 Nasal Cannula 2.0 12/26/18 20:00 65 12/26/18 20:00 99.6 65 20 114/64 (81) 95 12/26/18 16:00 97.1 65 18 115/45 (68) 97 12/26/18 16:00 73 12/26/18 12:00 59 12/26/18 12:00 98.1 58 18 125/65 (85) 100 Intake and Output 12/26/18 12/27/18 19:00 07:00 Intake Total 360 ml 360 ml Balance 360 ml 360 ml Intake Oral 360 ml 360 ml # Bowel Movements 1 Laboratory Tests 12/27/18 06:22: White Blood Count 5.6, Red Blood Count 3.05L, Hemoglobin 9.6L, Hematocrit 29.5L , Mean Corpuscular Volume 97, Mean Corpuscular Hemoglobin 31.5H, Mean Corpuscular Hemoglobin Concent 32.5, Red Cell Distribution Width 12.6, Platelet Count 209, Mean Platelet Volume 6.3L, Neutrophils (%) (Auto) 53.9, Lymphocytes ( %) (Auto) 28.2, Monocytes (%) (Auto) 13.2H, Eosinophils (%) (Auto) 3.6H, Basophils (%) (Auto) 1.0, Sodium Level 139, Potassium Level 4.0, Chloride Level 100, Carbon Dioxide Level 32, Anion Gap 8, Blood Urea Nitrogen 24H, Creatinine 3.0H, Estimat Glomerular Filtration Rate 21.0, Glucose Level 127H, Calcium Level 8.6, Random Vancomycin Level 12.3 Height (Feet): 5 Height (Inches): 6.00 Weight (Pounds): 145 General Appearance: no apparent distress, alert Neck: non-tender, supple Cardiovascular: normal rate, regular rhythm Respiratory/Chest: lungs clear, normal breath sounds Abdomen: non tender, soft Extremities: normal range of motion, non-tender Edema: no edema noted Arm (L), no edema noted Arm (R), no edema noted Leg (L), no edema noted Leg (R), no edema noted Pedal (L), no edema noted Pedal (R), no edema noted Generalized Neurologic: no motor/sensory deficits, alert, responsive Skin: warm/dry Lymphatic: normal anterior cervical (L), normal anterior cervical (R), normal posterior cervical (L), normal posterior cervical (R), normal submandibular (L) , normal submandibular (R), normal supraclavicular (L), normal supraclavicular ( R), normal axillary (L), normal axillary (R), normal inguinal (L), normal inguinal (R), normal other Gem Best MD Dec 27, 2018 09:15
[2018-12-27] MEDS ORDERED: Vancomycin 1gm/D5W 275ml IVPB ONE ×2 (10:00)
--- NOTE | 2018-12-27 10:00 | NUR ---
NURSE NOTES:NURSE NOTES: Received pt from TAYLOR Pretty. Pt is awake and resting in bed. Iv site intact. Bed locked in lowest position, call light within reach. patient c/o unable to urinate and new folly inserted as ordered by Dr. Best. patient tolerated well. Will continue with plan of care.
--- NOTE | 2018-12-27 10:03 | NUR ---
i called [facility] and spoke to Rupali regarding HD order for tomorrow
--- NOTE | 2018-12-27 12:46 | Infectious Diseases Prog Note ---
Assessment/Plan Problems: (1) Sepsis Assessment & Plan: with staph epidermidis source suspect HD CATHETER INFECTION , recommend to remove and place a new catheter in 48 hours . continue vancomycin DOSED AFTER EACH HD for two weeks course of treatment , transthoracic echo ruled out vegetations . repeated blood culture on 12/25 is negative x2 which confirm clearance. EOT 01/08/19 (2) HCAP (healthcare-associated pneumonia) Assessment & Plan: with cough, SOB, and high fever ALREADY ON cefepime and vancomycin treatment for sepsis and UTI . aspiration precaution (3) Catheter-associated urinary tract infection Assessment & Plan: due to klebsiella oxytoca , continue cefepime for 10 days , S/P walsh catheter change (4) Fever Assessment & Plan: due to the above, improving , continue antibiotics and tylenol as needed (5) ESRD (end stage renal disease) on dialysis Assessment & Plan: has left perm A cath , with clean site and no sign of local infection , but being bacteremic source most likely is his HD catheter , recommend to remove and place a new one in 48 hours , continue HD as per renal Subjective Constitutional: Reports: no symptoms HEENT: Reports: no symptoms Respiratory: Reports: no symptoms Breasts: Reports: no symptoms Cardiovascular: Reports: no symptoms Gastrointestinal/Abdominal: Reports: no symptoms Genitourinary: Reports: no symptoms Neurologic: Reports: no symptoms Psychiatric: Reports: no symptoms Skin: Reports: no symptoms Endocrine: Reports: no symptoms Hematologic: Reports: no symptoms Musculoskeletal: Reports: no symptoms Allergies: Coded Allergies: No Known Allergies (Unverified , 12/26/12) Objective Vital Signs Last 24 Hour Vital Signs Date Time Temp Pulse Resp B/P (MAP) Pulse Ox O2 Delivery O2 Flow Rate FiO2 12/27/18 10:20 Nasal Cannula 2.0 12/27/18 09:03 84 113/71 12/27/18 08:36 98.6 84 18 113/71 (85) 96 12/27/18 08:04 96 Nasal Cannula 2.0 28 12/27/18 08:04 83 16 96 Nasal Cannula 2.0 28 12/27/18 04:00 99.1 72 24 107/54 (71) 98 12/27/18 04:00 72 12/27/18 00:00 59 12/27/18 00:00 98.1 59 20 121/62 (81) 97 12/26/18 21:00 Nasal Cannula 2.0 12/26/18 20:00 65 12/26/18 20:00 99.6 65 20 114/64 (81) 95 12/26/18 16:00 97.1 65 18 115/45 (68) 97 12/26/18 16:00 73 Height (Feet): 5 Height (Inches): 6.00 Weight (Pounds): 145 General Appearance: WD/WN, no acute distress HEENT: normocephalic, atraumatic, anicteric, mucous membranes moist, PERRL, EOMI, pharynx normal, supple, no JVD Respiratory/Chest: chest wall non-tender, lungs clear, normal breath sounds, no respiratory distress, no accessory muscle use Cardiovascular: normal peripheral pulses, normal rate, regular rhythm, no gallop/murmur, no JVD Abdomen: normal bowel sounds, soft, non tender, no organomegaly, non distended , no mass, no scars Genitourinary: normal external genitalia Extremities: no cyanosis, no clubbing Skin: no rash, no lesions, no ulcers 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, alert, responsive Lymphatic: no neck adenopathy, no groin adenopathy Musculoskeletal: normal muscle bulk, no effusion Microbiology Date/Time Source Procedure Growth Status 12/25/18 17:15 Blood Blood Culture - Preliminary NO GROWTH AFTER 24 HOURS Resulted 12/25/18 17:00 Blood Blood Culture - Preliminary NO GROWTH AFTER 24 HOURS Resulted 12/24/18 15:45 Sputum Expectorated Gram Stain - Final Complete 12/24/18 15:45 Sputum Expectorated Sputum Culture - Final NORMAL UPPER RESPIRATORY DIONNA PRESENT Complete Laboratory Tests Test 12/27/18 06:22 White Blood Count 5.6 K/UL (4.8-10.8) Red Blood Count 3.05 M/UL (4.70-6.10) L Hemoglobin 9.6 G/DL (14.2-18.0) L Hematocrit 29.5 % (42.0-52.0) L Mean Corpuscular Volume 97 FL (80-99) Mean Corpuscular Hemoglobin 31.5 PG (27.0-31.0) H Mean Corpuscular Hemoglobin Concent 32.5 G/DL (32.0-36.0) Red Cell Distribution Width 12.6 % (11.6-14.8) Platelet Count 209 K/UL (150-450) Mean Platelet Volume 6.3 FL (6.5-10.1) L Neutrophils (%) (Auto) 53.9 % (45.0-75.0) Lymphocytes (%) (Auto) 28.2 % (20.0-45.0) Monocytes (%) (Auto) 13.2 % (1.0-10.0) H Eosinophils (%) (Auto) 3.6 % (0.0-3.0) H Basophils (%) (Auto) 1.0 % (0.0-2.0) Sodium Level 139 MMOL/L (136-145) Potassium Level 4.0 MMOL/L (3.5-5.1) Chloride Level 100 MMOL/L (98-107) Carbon Dioxide Level 32 MMOL/L (21-32) Anion Gap 8 mmol/L (5-15) Blood Urea Nitrogen 24 mg/dL (7-18) H Creatinine 3.0 MG/DL (0.55-1.30) H Estimat Glomerular Filtration Rate 21.0 mL/min (>60) Glucose Level 127 MG/DL (74-106) H Calcium Level 8.6 MG/DL (8.5-10.1) Random Vancomycin Level 12.3 ug/mL Current Medications Medications (Trade) Dose Ordered Sig/Kevin Route PRN Reason Start Time Stop Time Status Last Admin Dose Admin Acetaminophen (Tylenol) 650 mg Q6H PRN ORAL Mild Pain/Temp > 100.5 12/24/18 05:45 01/23/19 05:44 12/25/18 23:50 Albuterol/ Ipratropium (Albuterol/ Ipratropium) 3 ml Q4H PRN HHN Shortness of Breath 12/24/18 05:30 12/29/18 05:29 Aripiprazole (Abilify) 10 mg DAILY ORAL 12/24/18 09:00 01/23/19 08:59 12/27/18 09:03 Atorvastatin Calcium (Lipitor) 80 mg BEDTIME ORAL 12/24/18 21:00 01/23/19 20:59 12/26/18 22:09 Bethanechol Chloride (Urecholine) 25 mg THREE TIMES A DAY ORAL 12/24/18 09:00 01/23/19 08:59 12/27/18 09:03 Bisacodyl (Dulcolax) 10 mg DAILY ORAL 12/24/18 09:00 01/23/19 08:59 12/27/18 08:58 Cefepime HCl 1 gm/ Dextrose 55 ml @ 110 mls/hr Q24H IVPB 12/26/18 17:00 01/02/19 16:59 12/26/18 18:16 Clopidogrel Bisulfate (Plavix) 75 mg DAILY ORAL 12/24/18 09:00 01/23/19 08:59 12/27/18 08:58 Dextrose (Dextrose 50%) 25 ml Q30M PRN IV Hypoglycemia 12/24/18 05:30 01/23/19 05:29 Dextrose (Dextrose 50%) 50 ml Q30M PRN IV Hypoglycemia 12/24/18 05:30 01/23/19 05:29 Diphenhydramine HCl (Benadryl) 50 mg Q6H PRN ORAL Itching 12/24/18 05:45 01/23/19 05:44 Docusate Sodium (Colace) 250 mg TWICE A DAY ORAL 12/24/18 09:00 01/23/19 08:59 12/27/18 08:58 Epoetin Kimani (Epoetin Kimani(ESRD on dialysis)) 2,000 unit SUBQ 12/26/18 21:00 01/25/19 20:59 12/26/18 22:09 Epoetin Kimani (Epoetin Kimani(ESRD on dialysis)) 3,000 unit SUBQ 12/26/18 21:00 01/25/19 20:59 12/26/18 22:09 Famotidine (Pepcid) 20 mg BID ORAL 12/24/18 09:00 01/23/19 08:59 12/27/18 08:58 Fluticasone Propionate (Flonase) 1 spray DAILY NASAL 12/24/18 09:00 01/23/19 08:59 12/26/18 09:07 Insulin Aspart (NovoLOG) BEFORE MEALS AND HS SUBQ 12/24/18 06:30 01/23/19 06:29 12/27/18 06:20 Lisinopril (Prinivil) 20 mg DAILY ORAL 12/28/18 09:00 01/23/19 08:59 Metoprolol Succinate (Toprol XL) 50 mg DAILY ORAL 12/24/18 09:00 01/23/19 08:59 12/27/18 09:03 Ondansetron HCl (Zofran) 4 mg Q4H PRN IVP Nausea & Vomiting 12/24/18 12:00 01/23/19 11:59 12/24/18 12:00 Promethazine HCl/ Dextromethorphan (Phenergan DM) 6.25 mg Q8H PRN ORAL For Cough 12/24/18 10:30 01/23/19 10:29 12/26/18 22:34 Tamsulosin HCl (Flomax) 0.4 mg DAILY ORAL 12/24/18 09:00 01/23/19 08:59 12/27/18 08:58 Trazodone HCl (Desyrel) 100 mg BEDTIME ORAL 12/24/18 21:00 01/23/19 20:59 12/26/18 22:08 Vancomycin HCl (Vanco rx to dose) 1 ea DAILY PRN MISC Per rx protocol 12/24/18 13:45 01/23/19 13:44 Bertin Rothman M.D. Dec 27, 2018 12:46
[2018-12-27] MEDS: Flonase Nasal Inhaler 16gm NASAL SCH (13:02)
--- NOTE | 2018-12-27 14:29 | NUR ---
CASE MANAGEMENT:REVIEW 12/27/18 SI:SEPSIS. PNA. ESRD/HD 99.1 72 24 107/54 98% ON 2L/NC H/H-9.6/29.5 BUN+24 CR+3.0 IS: IV CEFEPIME Q24 ABILIFY PO QD URECHOLINE PO TID PLAVIX PO QD FLONASE QD LISINOPRIL PO QD TOPROL XL PO QD : TELEMETRY STATUS DCP: FROM [facility]
--- NOTE | 2018-12-27 14:49 | NUR ---
*-* INSURANCE *-* ALL CLINICALS AND REVIEWS HAVE BEEN FAXED TO: [facility] REF# [id number] F:[phone]
--- NOTE | 2018-12-27 15:27 | Consultation ---
History of Present Illness General Date patient seen: Dec 27, 2018 Reason for Hospitalization: Flu Like Symptoms Present Illness HPI This is a very pleasant 68-year-old Farsi speaking male who presented to [facility] with complaints of flulike symptoms and was found to be bacteremic. Patient admitted for care and management. On admission patient noted to have potential etiology of bacteremia as an infected left tunneled temporary hemodialysis catheter. Surgery was called to evaluate and assist with care and management. Patient seen, patient evaluated, chart reviewed. In speaking with the patient he states that approximally 3 months ago the tunneled hemodialysis catheter was placed at [facility] and since placement he is had discomfort in the area. He has not noted any current drainage but states that every time dressing is changed it causes him discomfort. He receives hemodialysis as scheduled. Allergies: Coded Allergies: No Known Allergies (Unverified , 12/26/12) Medication History Scheduled Aripiprazole* (Abilify*), 10 MG ORAL DAILY, (Reported) Atorvastatin Calcium* (Atorvastatin Calcium*), 80 MG ORAL BEDTIME, (Reported) Bethanechol Chl* (Urecholine*), 25 MG ORAL THREE TIMES A DAY, (Reported) Bisacodyl* (Dulcolax*), 10 MG ORAL DAILY, (Reported) Clopidogrel* (Clopidogrel*), 75 MG ORAL DAILY, (Reported) Clotrimazole* (Lotrimin*), 1 APPLIC TOPIC TWICE A DAY, (Reported) Docusate Sodium* (Docusate Sodium*), 250 MG ORAL TWICE A DAY, (Reported) Fluticasone Propionate* (Fluticasone Propionate*), 1 SPRAY NASAL DAILY, ( Reported) Glipizide* (Glipizide*), 5 MG ORAL BIDAC, (Reported) Lisinopril (Lisinopril*), 40 MG ORAL DAILY, (Reported) Metformin Hcl* (Metformin Hcl*), 850 MG ORAL TID, (Reported) Metoprolol Succinate* (Metoprolol Succinate*), 50 MG ORAL DAILY, (Reported) Phenazopyridine Hcl* (Pyridium*), 200 MG ORAL THREE TIMES A DAY, (Reported) Ranitidine Hcl* (Zantac*), 150 MG ORAL TWICE A DAY, (Reported) Tamsulosin HCl (Flomax), 0.4 MG ORAL DAILY, (Reported) Trazodone* (Trazodone*), 100 MG ORAL BEDTIME, (Reported) Scheduled PRN Diphenhydramine HCl (Diphenhydramine HCl), 50 MG ORAL Q6H PRN for Itching Miscellaneous Medications Acetaminophen (Mapap), 500 MG PO, (Reported) Canagliflozin (Invokana), 100 MG PO, (Reported) Ciclopirox/Ure/Camph/Menth/Euc (Ciclopirox 8% Treatment Kit), 34.6 ML TP, ( Reported) Linaclotide (Linzess), 290 MCG PO, (Reported) Linagliptin/Metformin Hcl (Jentadueto 2.5 Mg-1000 Mg Tab), 1 EACH PO, (Reported) Melatonin (Melatonin), 5 MG PO, (Reported) Unable to Obtain Medications (Unable To Obtain Meds), (Reported) Patient History History Provided By: Patient, Medical Record, PMD Healthcare decision maker Resuscitation status Full Code Advanced Directive on File Past Medical/Surgical History Past Medical/Surgical History: (1) Eye problem (2) Eye problem (3) Pruritic dermatitis (4) Influenza-like symptoms (5) Fever (6) Sepsis (7) ESRD (end stage renal disease) on dialysis (8) HCAP (healthcare-associated pneumonia) (9) Catheter-associated urinary tract infection (10) Dyspnea Review of Systems Review of Symptoms General ROS: no weight loss or fever Psychological ROS: no depression or mood changes, no memory loss Ophthalmic ROS: no visual changes or eye irritation ENT ROS: no nasal congestion, hearing loss, dizziness Allergy and Immunology ROS: no allergic symptoms or urticaria Hematological and Lymphatic ROS: no swollen glands, unusual bleeding or bruising Endocrine ROS: no polyuria, polydipsia, weight changes, temperature intolerance Respiratory ROS: no cough, shortness of breath, or wheezing Cardiovascular ROS: no chest pain or dyspnea on exertion Gastrointestinal ROS: denies abdominal pain, no bright red blood in stool. Musculoskeletal ROS: no myalgias or arthralgias Neurological ROS: no TIA or stroke symptoms Dermatological ROS: no new or changing skin lesions, rashes or pruritis Physical Exam Physical Exam General appearance: alert, cooperative, no distress, appears stated age Head: Normocephalic, without obvious abnormality, atraumatic Eyes: conjunctivae/corneas clear. PERRL, EOM's intact. Fundi benign Throat: Lips, mucosa, and tongue normal. Teeth and gums normal Neck: supple, symmetrical, trachea midline, no adenopathy, thyroid: not enlarged, symmetric, no tenderness/mass/nodules, no carotid bruit and no JVD Lungs: clear to auscultation bilaterally Heart: regular rate and rhythm, S1, S2 normal, no murmur, click, rub or gallop Abdomen: soft, non-tender. Bowel sounds normal. No masses, no organomegaly Extremities: extremities normal, atraumatic, no cyanosis or edema Pulses: 2+ and symmetric Skin: Skin color, texture, turgor normal. No rashes or lesions Neurologic: Grossly normal Last 24 Hour Vital Signs Date Time Temp Pulse Resp B/P (MAP) Pulse Ox O2 Delivery O2 Flow Rate FiO2 12/27/18 12:00 88 12/27/18 12:00 97.9 63 18 122/60 (80) 96 12/27/18 10:20 Nasal Cannula 2.0 12/27/18 09:03 84 113/71 12/27/18 08:36 98.6 84 18 113/71 (85) 96 12/27/18 08:04 96 Nasal Cannula 2.0 28 12/27/18 08:04 83 16 96 Nasal Cannula 2.0 28 12/27/18 08:00 73 12/27/18 04:00 99.1 72 24 107/54 (71) 98 12/27/18 04:00 72 12/27/18 00:00 59 12/27/18 00:00 98.1 59 20 121/62 (81) 97 12/26/18 21:00 Nasal Cannula 2.0 12/26/18 20:00 65 12/26/18 20:00 99.6 65 20 114/64 (81) 95 12/26/18 16:00 97.1 65 18 115/45 (68) 97 12/26/18 16:00 73 Intake and Output 12/26/18 12/27/18 19:00 07:00 Intake Total 360 ml 360 ml Balance 360 ml 360 ml Intake Oral 360 ml 360 ml # Bowel Movements 1 Laboratory Tests Test 12/27/18 06:22 White Blood Count 5.6 K/UL (4.8-10.8) Red Blood Count 3.05 M/UL (4.70-6.10) L Hemoglobin 9.6 G/DL (14.2-18.0) L Hematocrit 29.5 % (42.0-52.0) L Mean Corpuscular Volume 97 FL (80-99) Mean Corpuscular Hemoglobin 31.5 PG (27.0-31.0) H Mean Corpuscular Hemoglobin Concent 32.5 G/DL (32.0-36.0) Red Cell Distribution Width 12.6 % (11.6-14.8) Platelet Count 209 K/UL (150-450) Mean Platelet Volume 6.3 FL (6.5-10.1) L Neutrophils (%) (Auto) 53.9 % (45.0-75.0) Lymphocytes (%) (Auto) 28.2 % (20.0-45.0) Monocytes (%) (Auto) 13.2 % (1.0-10.0) H Eosinophils (%) (Auto) 3.6 % (0.0-3.0) H Basophils (%) (Auto) 1.0 % (0.0-2.0) Sodium Level 139 MMOL/L (136-145) Potassium Level 4.0 MMOL/L (3.5-5.1) Chloride Level 100 MMOL/L (98-107) Carbon Dioxide Level 32 MMOL/L (21-32) Anion Gap 8 mmol/L (5-15) Blood Urea Nitrogen 24 mg/dL (7-18) H Creatinine 3.0 MG/DL (0.55-1.30) H Estimat Glomerular Filtration Rate 21.0 mL/min (>60) Glucose Level 127 MG/DL (74-106) H Calcium Level 8.6 MG/DL (8.5-10.1) Random Vancomycin Level 12.3 ug/mL Height (Feet): 5 Height (Inches): 6.00 Weight (Pounds): 145 Medications Current Medications Medications (Trade) Dose Ordered Sig/Kevin Route PRN Reason Start Time Stop Time Status Last Admin Dose Admin Acetaminophen (Tylenol) 650 mg Q6H PRN ORAL Mild Pain/Temp > 100.5 12/24/18 05:45 01/23/19 05:44 12/25/18 23:50 Albuterol/ Ipratropium (Albuterol/ Ipratropium) 3 ml Q4H PRN HHN Shortness of Breath 12/24/18 05:30 12/29/18 05:29 Aripiprazole (Abilify) 10 mg DAILY ORAL 12/24/18 09:00 01/23/19 08:59 12/27/18 09:03 Atorvastatin Calcium (Lipitor) 80 mg BEDTIME ORAL 12/24/18 21:00 01/23/19 20:59 12/26/18 22:09 Bethanechol Chloride (Urecholine) 25 mg THREE TIMES A DAY ORAL 12/24/18 09:00 01/23/19 08:59 12/27/18 13:02 Bisacodyl (Dulcolax) 10 mg DAILY ORAL 12/24/18 09:00 01/23/19 08:59 12/27/18 08:58 Cefepime HCl 1 gm/ Dextrose 55 ml @ 110 mls/hr Q24H IVPB 12/26/18 17:00 01/02/19 16:59 12/26/18 18:16 Clopidogrel Bisulfate (Plavix) 75 mg DAILY ORAL 12/24/18 09:00 01/23/19 08:59 12/27/18 08:58 Dextrose (Dextrose 50%) 25 ml Q30M PRN IV Hypoglycemia 12/24/18 05:30 01/23/19 05:29 Dextrose (Dextrose 50%) 50 ml Q30M PRN IV Hypoglycemia 12/24/18 05:30 01/23/19 05:29 Diphenhydramine HCl (Benadryl) 50 mg Q6H PRN ORAL Itching 12/24/18 05:45 01/23/19 05:44 Docusate Sodium (Colace) 250 mg TWICE A DAY ORAL 12/24/18 09:00 01/23/19 08:59 12/27/18 08:58 Epoetin Kimani (Epoetin Kimani(ESRD on dialysis)) 2,000 unit SUBQ 12/26/18 21:00 01/25/19 20:59 12/26/18 22:09 Epoetin Kimani (Epoetin Kimani(ESRD on dialysis)) 3,000 unit SUBQ 12/26/18 21:00 01/25/19 20:59 12/26/18 22:09 Famotidine (Pepcid) 20 mg BID ORAL 12/24/18 09:00 01/23/19 08:59 12/27/18 08:58 Fluticasone Propionate (Flonase) 1 spray DAILY NASAL 12/24/18 09:00 01/23/19 08:59 12/27/18 13:02 Insulin Aspart (NovoLOG) BEFORE MEALS AND HS SUBQ 12/24/18 06:30 01/23/19 06:29 12/27/18 13:02 Lisinopril (Prinivil) 20 mg DAILY ORAL 12/28/18 09:00 01/23/19 08:59 Metoprolol Succinate (Toprol XL) 50 mg DAILY ORAL 12/24/18 09:00 01/23/19 08:59 12/27/18 09:03 Ondansetron HCl (Zofran) 4 mg Q4H PRN IVP Nausea & Vomiting 12/24/18 12:00 01/23/19 11:59 12/24/18 12:00 Promethazine HCl/ Dextromethorphan (Phenergan DM) 6.25 mg Q8H PRN ORAL For Cough 12/24/18 10:30 01/23/19 10:29 12/26/18 22:34 Tamsulosin HCl (Flomax) 0.4 mg DAILY ORAL 12/24/18 09:00 01/23/19 08:59 12/27/18 08:58 Trazodone HCl (Desyrel) 100 mg BEDTIME ORAL 12/24/18 21:00 01/23/19 20:59 12/26/18 22:08 Vancomycin HCl (Vanco rx to dose) 1 ea DAILY PRN MISC Per rx protocol 12/24/18 13:45 01/23/19 13:44 Assessment/Plan Problem List: (1) Sepsis Assessment & Plan: 68-year-old male presented with fevers and sepsis. Patient bacteremic Likely etiology is his tunneled left temporary hemodialysis catheter Recommend removal See report We will attempt to keep patient line free as long as possible then placed new temporary even as catheter for him Antibiotics as per ID Thank you for allowing me to participate in patient's care ICD Codes: A41.9 - Sepsis, unspecified organism SNOMED: 97727050 (2) Fever ICD Codes: R50.9 - Fever, unspecified SNOMED: 545806019 (3) Catheter-associated urinary tract infection ICD Codes: T83.511A - Infection and inflammatory reaction due to indwelling urethral catheter, initial encounter; N39.0 - Urinary tract infection, site not specified SNOMED: 957468432 (4) Influenza-like symptoms ICD Codes: R68.89 - Other general symptoms and signs SNOMED: 059380669 (5) ESRD (end stage renal disease) on dialysis ICD Codes: N18.6 - End stage renal disease; Z99.2 - Dependence on renal dialysis SNOMED: 305518295 (6) HCAP (healthcare-associated pneumonia) ICD Codes: J18.9 - Pneumonia, unspecified organism SNOMED: 180621040, 087647918 (7) Pruritic dermatitis ICD Codes: L29.9 - Pruritus, unspecified SNOMED: 099833645 (8) Dyspnea ICD Codes: R06.00 - Dyspnea, unspecified SNOMED: 983874238 (9) Eye problem ICD Codes: H57.9 - Unspecified disorder of eye and adnexa SNOMED: 511806054 (10) Eye problem ICD Codes: H57.9 - Unspecified disorder of eye and adnexa SNOMED: 416984817 Trevon Baptiste Dec 27, 2018 15:27
--- NOTE | 2018-12-27 15:29 | Operative Note - PDOC ---
Operative Note Operative Note Date of Operation/Procedure: Dec 27, 2018 Pre-op Diagnosis: sepsis bacteremia Procedure: removal of right chest wall tunneled HD catheter Post-op Diagnosis: same as pre-op Surgeon: nini Anesthesia: other Specimen: yes Complications: none Condition: stable Estimated Blood Loss: none Drains: none Implant(s) used?: No Indications for Procedure This is a 68-year-old male who presented with sepsis and noted to be bacteremic. Likely etiology of bacteremia is infected tunneled left chest wall hemodialysis catheter. Indication for removal. Risk medicine alternatives discussed with patient consent obtained for removal of catheter. Description of Procedure Patient was made comfortable at the bedside in the supine position. The prior dressing was were removed. The site was cleansed. The sutures were removed. The felt was palpated and identified. The catheter was gently dissected out and removed without complication. The catheter tip was sent to micro biology for review. Following this pressure was held for approximately 10 minutes until good hemostasis was noted. Dressings were applied. Trevon Baptiste Dec 27, 2018 15:29
--- NOTE | 2018-12-27 16:27 | Cardiac Electrophysiology PN ---
Assessment/Plan Assessment/Plan 1. Shortness of breath, likely due to underlying pneumonia. His BNP were also elevated at 2769. Echocardiogram EF 65%. Already on hemodialysis. 2. Paroxysmal atrial fibrillation, currently in sinus rhythm. Had brief atrial fib that self terminated. On Toprol-XL 50 mg daily. 3. Congestive heart failure. On Toprol,lisinopril 40 daily and hemodialysis. 4. Coronary artery disease with history of prior stent. Denies any chest pain. On Plavix and metoprolol and Lipitor 80 mg daily. 5. Sepsis. On broad-spectrum IV antibiotics. RICKY RN DC planning today Subjective Subjective Had HD yesterday. In Sinus seng. No CP or SOB. DC planning in progress Objective Last 24 Hour Vital Signs Date Time Temp Pulse Resp B/P (MAP) Pulse Ox O2 Delivery O2 Flow Rate FiO2 12/27/18 12:00 88 12/27/18 12:00 97.9 63 18 122/60 (80) 96 12/27/18 10:20 Nasal Cannula 2.0 12/27/18 09:03 84 113/71 12/27/18 08:36 98.6 84 18 113/71 (85) 96 12/27/18 08:04 96 Nasal Cannula 2.0 28 12/27/18 08:04 83 16 96 Nasal Cannula 2.0 28 12/27/18 08:00 73 12/27/18 04:00 99.1 72 24 107/54 (71) 98 12/27/18 04:00 72 12/27/18 00:00 59 12/27/18 00:00 98.1 59 20 121/62 (81) 97 12/26/18 21:00 Nasal Cannula 2.0 12/26/18 20:00 65 12/26/18 20:00 99.6 65 20 114/64 (81) 95 Intake and Output 12/26/18 12/27/18 19:00 07:00 Intake Total 360 ml 360 ml Balance 360 ml 360 ml Intake Oral 360 ml 360 ml # Bowel Movements 1 Laboratory Tests Test 12/27/18 06:22 White Blood Count 5.6 K/UL (4.8-10.8) Red Blood Count 3.05 M/UL (4.70-6.10) L Hemoglobin 9.6 G/DL (14.2-18.0) L Hematocrit 29.5 % (42.0-52.0) L Mean Corpuscular Volume 97 FL (80-99) Mean Corpuscular Hemoglobin 31.5 PG (27.0-31.0) H Mean Corpuscular Hemoglobin Concent 32.5 G/DL (32.0-36.0) Red Cell Distribution Width 12.6 % (11.6-14.8) Platelet Count 209 K/UL (150-450) Mean Platelet Volume 6.3 FL (6.5-10.1) L Neutrophils (%) (Auto) 53.9 % (45.0-75.0) Lymphocytes (%) (Auto) 28.2 % (20.0-45.0) Monocytes (%) (Auto) 13.2 % (1.0-10.0) H Eosinophils (%) (Auto) 3.6 % (0.0-3.0) H Basophils (%) (Auto) 1.0 % (0.0-2.0) Sodium Level 139 MMOL/L (136-145) Potassium Level 4.0 MMOL/L (3.5-5.1) Chloride Level 100 MMOL/L (98-107) Carbon Dioxide Level 32 MMOL/L (21-32) Anion Gap 8 mmol/L (5-15) Blood Urea Nitrogen 24 mg/dL (7-18) H Creatinine 3.0 MG/DL (0.55-1.30) H Estimat Glomerular Filtration Rate 21.0 mL/min (>60) Glucose Level 127 MG/DL (74-106) H Calcium Level 8.6 MG/DL (8.5-10.1) Random Vancomycin Level 12.3 ug/mL Microbiology Date/Time Source Procedure Growth Status 12/25/18 17:15 Blood Blood Culture - Preliminary NO GROWTH AFTER 24 HOURS Resulted 12/25/18 17:00 Blood Blood Culture - Preliminary NO GROWTH AFTER 24 HOURS Resulted Objective HEAD AND NECK: No JVD. LUNGS: Coarse rhonchi. CARDIOVASCULAR: Regular S1 and S2 with no gallop or murmur. ABDOMEN: Soft and nontender. EXTREMITIES: No pitting edema. Milan Fields MD Dec 27, 2018 16:27
[2018-12-27] MEDS: Cefepime HCl 1 GM in D5W 55 ML IVPB SCH (16:37)
--- NOTE | 2018-12-27 19:21 | NUR ---
HAND-OFF: Report given to ALMA ROSA VAZQUEZ.
--- NOTE | 2018-12-27 19:25 | NUR ---
NURSE NOTES: Received report from Rene Reynolds RN. Patient in bed AAO X4 Farsi speaking with some Nepali noted. No complaints of acute pain or discomfort at this time; kept clean, dry, and comfortable in bed. On 2L NC with no S/S of SOB or resp. distress noted, placed on continuous cardiac monitoring per protocol. IV line intact and patent TKO. Able to ambulate with assist to the bathroom and offered urinal at bedside. Safety precaution in place; siderails X2 up, call light within reach, bed in lowest position, brakes and alarm on at all times. Needs and wants anticipated and attended. Will continue plan of care and monitor for any changes noted.
--- NOTE | 2018-12-27 20:14 | NUR ---
NURSE NOTES: Spoke with Roman MD. regarding patient's scheduled HD tomorrow. DC order and none until Monday d/t unavailable HD access. Will continue to monitor.
[2018-12-27] MEDS: Atorvastatin 80mg tab ORAL SCH (20:32)
[2018-12-27] MEDS: TraZODone 100mg tab ORAL SCH (20:32)
--- NOTE | 2018-12-27 21:22 | NUR ---
NURSE NOTES: Called [facility] and spoke to Teri regarding patients change of order. DC scheduled treatment for tomorrow 12/28/18.
[2018-12-28] VITALS: BP 134/63
--- NOTE | 2018-12-28 03:30 | NUR ---
NURSE NOTES: Patient in bed asleep with no S/S of distress. Will continue to monitor
[2018-12-28 04:00] VITALS: BP 131/80
[2018-12-28] MEDS: NovoLOG Insulin Flexpen SUBQ SCH ×4 (06:25→21:42)
--- NOTE | 2018-12-28 07:33 | NUR ---
HAND-OFF: Report given to Rene Reynolds RN. PAtient in bed asleep with no S/S of distress at this time. Endorsed plan of care.
--- NOTE | 2018-12-28 07:56 | Nephrology Progress Note ---
Assessment/Plan Status: stable Assessment/Plan: A/P 1) ESRD- HD MWF. - will hold HD until Monday 2) Sepsis- CAP and UTI - Abx per ID mgmt - removed permacath per ID request - will follow daily labs and replace catheter on Monday 3) Anemia of CKD- EPO with HD with Hgb goal >10 4) HTN- stable 5) DM- per PCP mgmt Subjective Date patient seen: Dec 28, 2018 Time patient seen: 07:52 ROS Limited/Unobtainable: No Allergies: Coded Allergies: No Known Allergies (Unverified , 12/26/12) Subjective Patient without complaints Objective Last 24 Hour Vital Signs Date Time Temp Pulse Resp B/P (MAP) Pulse Ox O2 Delivery O2 Flow Rate FiO2 12/28/18 04:00 72 12/28/18 04:00 97.4 71 18 131/80 (97) 96 12/28/18 00:00 68 12/28/18 00:00 98.9 69 19 134/63 (86) 95 12/27/18 21:00 Nasal Cannula 2.0 12/27/18 20:00 66 12/27/18 20:00 98.7 71 18 145/80 (101) 97 12/27/18 19:46 74 18 97 Nasal Cannula 2.0 28 12/27/18 19:46 97 Nasal Cannula 2.0 28 12/27/18 17:01 97.5 72 18 117/78 (91) 97 12/27/18 16:00 82 12/27/18 16:00 97.5 72 18 117/78 (91) 97 12/27/18 14:00 97.5 72 18 117/78 (91) 97 12/27/18 12:00 88 12/27/18 12:00 97.9 63 18 122/60 (80) 96 12/27/18 10:20 Nasal Cannula 2.0 12/27/18 09:03 84 113/71 12/27/18 08:36 98.6 84 18 113/71 (85) 96 12/27/18 08:04 96 Nasal Cannula 2.0 28 12/27/18 08:04 83 16 96 Nasal Cannula 2.0 28 12/27/18 08:00 73 Intake and Output 12/27/18 12/28/18 19:00 07:00 Intake Total 260 ml Output Total 300 ml 400 ml Balance -40 ml -400 ml Intake Oral 260 ml Output Urine Total 300 ml 400 ml # Bowel Movements 2 Height (Feet): 5 Height (Inches): 6.00 Weight (Pounds): 145 General Appearance: no apparent distress EENT: normal ENT inspection Neck: normal alignment, supple Cardiovascular: normal rate, regular rhythm Respiratory/Chest: lungs clear, normal breath sounds Abdomen: non tender, soft Edema: no edema noted Arm (L), no edema noted Arm (R), no edema noted Leg (L), no edema noted Leg (R), no edema noted Pedal (L), no edema noted Pedal (R), no edema noted Generalized Mendez Roman MD Dec 28, 2018 07:56
[2018-12-28 08:00] VITALS: BP 136/67
[2018-12-28] MEDS: Lisinopril 20mg tab ORAL SCH (08:29)
[2018-12-28] MEDS: ARIPiprazole 10mg tab ORAL SCH (08:29)
[2018-12-28] MEDS: Tamsulosin 0.4mg cap ORAL SCH (08:29)
[2018-12-28] MEDS: Bethanechol 25mg Tab ORAL SCH ×3 (08:30→17:55)
[2018-12-28] MEDS: Docusate 250mg cap ORAL SCH ×2 (08:30→17:56)
[2018-12-28] MEDS: Bisacodyl EC 5mg tab ORAL SCH (08:30)
[2018-12-28] MEDS: Metoprolol Succinate XL 50mg tab ORAL SCH (08:30)
[2018-12-28] MEDS: Flonase Nasal Inhaler 16gm NASAL SCH (08:37)
--- NOTE | 2018-12-28 08:42 | General Progress Note ---
Assessment/Plan Status: stable Assessment/Plan: 1. pneumonia - improved. Cont cefepime and vanco. ID following. 2. CHF - resolved. On HD. 3. H/O A Fib with RVR, currently on NSR. cardiology following. 4. UTI - improved. cont cefepime for total of 10 days per ID. walsh changed. 5. Sepsis - improved. cont IV abx. repeat blood cultures neg x 48 hrs. ID following. Perm A cath removed yesterday. 6. CRF on HD - renal for HD. s/p Perm A cath removal yesterday. Plan for new Perm A cath on monday. D/C planning to [facility] on monday. 7. DM II - SSI. 8. BPH - cont home meds. 9. HTN - cont home meds. 10. Chronic urinary Retention due to neurogenic bladder - walsh replaced. 11. HLD - cont home meds. 12. CAD - stable. 13. Asthma - cont home meds. 14. Mood disorder - cont home meds. Subjective Date patient seen: Dec 28, 2018 Time patient seen: 08:15 Constitutional: Reports: no symptoms HEENT: Reports: no symptoms Cardiovascular: Reports: no symptoms Respiratory: Reports: cough Gastrointestinal/Abdominal: Reports: no symptoms Genitourinary: Reports: no symptoms 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: Reports: no symptoms Endocrine: Reports: no symptoms Hematologic/Lymphatic: Reports: no symptoms Allergies: Coded Allergies: No Known Allergies (Unverified , 12/26/12) Subjective He c/o dry cough today. He is afebrile. His Perm A cath removed yesterday. His new walsh was placed yesterday as well. no sob or chest pain. no nausea or vomiting. Objective Last 24 Hour Vital Signs Date Time Temp Pulse Resp B/P (MAP) Pulse Ox O2 Delivery O2 Flow Rate FiO2 12/28/18 08:30 85 136/67 12/28/18 08:29 136/67 12/28/18 08:00 98.8 85 18 136/67 (90) 96 12/28/18 04:00 72 12/28/18 04:00 97.4 71 18 131/80 (97) 96 12/28/18 00:00 68 12/28/18 00:00 98.9 69 19 134/63 (86) 95 12/27/18 21:00 Nasal Cannula 2.0 12/27/18 20:00 66 12/27/18 20:00 98.7 71 18 145/80 (101) 97 12/27/18 19:46 74 18 97 Nasal Cannula 2.0 28 12/27/18 19:46 97 Nasal Cannula 2.0 28 12/27/18 17:01 97.5 72 18 117/78 (91) 97 12/27/18 16:00 82 12/27/18 16:00 97.5 72 18 117/78 (91) 97 12/27/18 14:00 97.5 72 18 117/78 (91) 97 12/27/18 12:00 88 12/27/18 12:00 97.9 63 18 122/60 (80) 96 12/27/18 10:20 Nasal Cannula 2.0 12/27/18 09:03 84 113/71 12/27/18 08:36 98.6 84 18 113/71 (85) 96 Intake and Output 12/27/18 12/28/18 19:00 07:00 Intake Total 260 ml Output Total 300 ml 400 ml Balance -40 ml -400 ml Intake Oral 260 ml Output Urine Total 300 ml 400 ml # Bowel Movements 2 Height (Feet): 5 Height (Inches): 6.00 Weight (Pounds): 145 General Appearance: no apparent distress, alert EENT: normal ENT inspection Neck: non-tender, normal alignment, supple Cardiovascular: normal rate, regular rhythm Respiratory/Chest: chest wall non-tender, lungs clear, normal breath sounds Abdomen: normal bowel sounds, non tender, soft Extremities: normal range of motion, non-tender Edema: no edema noted Arm (L), no edema noted Arm (R), no edema noted Leg (L), no edema noted Leg (R), no edema noted Pedal (L), no edema noted Pedal (R), no edema noted Generalized Neurologic: alert, oriented x 3, responsive Skin: warm/dry Lymphatic: normal anterior cervical (L), normal anterior cervical (R), normal posterior cervical (L), normal posterior cervical (R), normal submandibular (L) , normal submandibular (R), normal supraclavicular (L), normal supraclavicular ( R), normal axillary (L), normal axillary (R), normal inguinal (L), normal inguinal (R), normal other Gem Best MD Dec 28, 2018 08:42
[2018-12-28] MEDS ORDERED: Lisinopril 20mg tab ORAL SCH (09:00)
--- NOTE | 2018-12-28 09:28 | NUR ---
CASE MANAGEMENT:REVIEW 12/28/18 SI:SEPSIS. BACTEREMIA. PNA. ESRD/HD 98.8 85 18 136/67 96% ON RA IS: IV CEFEPIME Q24 ABILIFY PO QD URECHOLINE PO TID PLAVIX PO QD FLONASE QD LISINOPRIL PO QD TOPROL XL PO QD : TELEMETRY STATUS DCP: FROM [facility] PLAN: PERMCATH WAS REMOVED PLANNING TO REPLACE PERMCATH ON MONDAY
--- NOTE | 2018-12-28 11:21 | NUR ---
*-* INSURANCE *-* ALL CLINICALS AND REVIEWS HAVE BEEN FAXED TO: [facility] REF# [id number] F:[phone]
[2018-12-28 12:00] VITALS: BP 132/85
--- NOTE | 2018-12-28 13:47 | Cardiac Electrophysiology PN ---
Assessment/Plan Assessment/Plan 1. Shortness of breath, likely due to underlying pneumonia. His BNP were also elevated at 2769. Echocardiogram EF 65%. Already on hemodialysis. 2. Paroxysmal atrial fibrillation, currently in sinus rhythm. Had brief atrial fib that self terminated. On Toprol-XL 50 mg daily. 3. Congestive heart failure. On Toprol,lisinopril 40 daily and hemodialysis. 4. Coronary artery disease with history of prior stent. Denies any chest pain. On Plavix and metoprolol and Lipitor 80 mg daily. 5. Sepsis. On broad-spectrum IV antibiotics. Dialysis catheter removed. Awaiting new catheter placement and HD on Monday DW RN Subjective Subjective Dialysis catheter removed. In Sinus seng. No CP or SOB. Objective Last 24 Hour Vital Signs Date Time Temp Pulse Resp B/P (MAP) Pulse Ox O2 Delivery O2 Flow Rate FiO2 12/28/18 12:00 98.0 85 18 132/85 (101) 97 12/28/18 10:07 Nasal Cannula 2.0 12/28/18 08:34 61 20 96 Room Air 21 12/28/18 08:34 96 Room Air 21 12/28/18 08:33 61 20 96 Room Air 21 12/28/18 08:30 85 136/67 12/28/18 08:29 136/67 12/28/18 08:00 98.8 85 18 136/67 (90) 96 12/28/18 04:00 72 12/28/18 04:00 97.4 71 18 131/80 (97) 96 12/28/18 00:00 68 12/28/18 00:00 98.9 69 19 134/63 (86) 95 12/27/18 21:00 Nasal Cannula 2.0 12/27/18 20:00 66 12/27/18 20:00 98.7 71 18 145/80 (101) 97 12/27/18 19:46 74 18 97 Nasal Cannula 2.0 28 12/27/18 19:46 97 Nasal Cannula 2.0 28 12/27/18 17:01 97.5 72 18 117/78 (91) 97 12/27/18 16:00 82 12/27/18 16:00 97.5 72 18 117/78 (91) 97 12/27/18 14:00 97.5 72 18 117/78 (91) 97 Intake and Output 12/27/18 12/28/18 19:00 07:00 Intake Total 260 ml Output Total 300 ml 400 ml Balance -40 ml -400 ml Intake Oral 260 ml Output Urine Total 300 ml 400 ml # Bowel Movements 2 Microbiology Date/Time Source Procedure Growth Status 12/25/18 17:15 Blood Blood Culture - Preliminary NO GROWTH AFTER 48 HOURS Resulted 12/25/18 17:00 Blood Blood Culture - Preliminary NO GROWTH AFTER 48 HOURS Resulted Objective HEAD AND NECK: No JVD. LUNGS: Coarse rhonchi. CARDIOVASCULAR: Regular S1 and S2 with no gallop or murmur. ABDOMEN: Soft and nontender. EXTREMITIES: No pitting edema. Milan Fields MD Dec 28, 2018 13:47
--- NOTE | 2018-12-28 14:34 | Surgery Progress Note ---
Surgery Progress Note Subjective Procedure Performed removal of right chest wall tunneled HD catheter Additional Comments doing well. no acute events no bleeding no nv/f/c comfortable. cont line free Objective Last 24 Hour Vital Signs Date Time Temp Pulse Resp B/P (MAP) Pulse Ox O2 Delivery O2 Flow Rate FiO2 12/28/18 12:00 98.0 85 18 132/85 (101) 97 12/28/18 10:07 Nasal Cannula 2.0 12/28/18 08:34 61 20 96 Room Air 21 12/28/18 08:34 96 Room Air 21 12/28/18 08:33 61 20 96 Room Air 21 12/28/18 08:30 85 136/67 12/28/18 08:29 136/67 12/28/18 08:00 98.8 85 18 136/67 (90) 96 12/28/18 04:00 72 12/28/18 04:00 97.4 71 18 131/80 (97) 96 12/28/18 00:00 68 12/28/18 00:00 98.9 69 19 134/63 (86) 95 12/27/18 21:00 Nasal Cannula 2.0 12/27/18 20:00 66 12/27/18 20:00 98.7 71 18 145/80 (101) 97 12/27/18 19:46 74 18 97 Nasal Cannula 2.0 28 12/27/18 19:46 97 Nasal Cannula 2.0 28 12/27/18 17:01 97.5 72 18 117/78 (91) 97 12/27/18 16:00 82 12/27/18 16:00 97.5 72 18 117/78 (91) 97 I&O Intake and Output 12/27/18 12/28/18 19:00 07:00 Intake Total 260 ml Output Total 300 ml 400 ml Balance -40 ml -400 ml Intake Oral 260 ml Output Urine Total 300 ml 400 ml # Bowel Movements 2 Dressing: dry Wound: clean Cardiovascular: RSR Respiratory: clear Abdomen: soft, present bowel sounds, non-distended Extremities: no tenderness, no cyanosis Plan Problems: (1) Sepsis Assessment & Plan: 68-year-old male presented with fevers and sepsis. Patient bacteremic Likely etiology is his tunneled left temporary hemodialysis catheter Recommend removal See report We will attempt to keep patient line free as long as possible then placed new temporary even as catheter for him plan for new line monday Antibiotics as per ID Thank you for allowing me to participate in patient's care (2) Fever (3) Catheter-associated urinary tract infection (4) Influenza-like symptoms (5) ESRD (end stage renal disease) on dialysis (6) HCAP (healthcare-associated pneumonia) (7) Pruritic dermatitis (8) Dyspnea (9) Eye problem (10) Eye problem Trevon Baptiste Dec 28, 2018 14:34
[2018-12-28 16:00] VITALS: BP 142/76
--- NOTE | 2018-12-28 16:28 | Infectious Diseases Prog Note ---
Assessment/Plan Problems: (1) Sepsis Assessment & Plan: with staph epidermidis source suspect HD CATHETER INFECTION , S/P removal , mar place a new catheter in 48 hours . continue vancomycin DOSED AFTER EACH HD for two weeks course of treatment , transthoracic echo ruled out vegetations . repeated blood culture on 12/25 is negative x2 which confirm clearance. EOT 01/10/19 (2) HCAP (healthcare-associated pneumonia) Assessment & Plan: with cough, SOB, and high fever ALREADY ON vancomycin treatment for sepsis and cefepime for UTI . aspiration precaution (3) Catheter-associated urinary tract infection Assessment & Plan: due to klebsiella oxytoca , continue cefepime for 10 days , S/P walsh catheter change (4) Fever Assessment & Plan: due to the above, improving , continue antibiotics and tylenol as needed (5) ESRD (end stage renal disease) on dialysis Assessment & Plan: has left perm A cath , with clean site and no sign of local infection , but being bacteremic source most likely is his HD catheter , recommend to remove and place a new one in 48 hours , continue HD as per renal Subjective Constitutional: Reports: no symptoms HEENT: Reports: no symptoms Respiratory: Reports: dry cough Breasts: Reports: no symptoms Cardiovascular: Reports: no symptoms Gastrointestinal/Abdominal: Reports: no symptoms Genitourinary: Reports: no symptoms Neurologic: Reports: no symptoms Psychiatric: Reports: no symptoms Skin: Reports: no symptoms Endocrine: Reports: no symptoms Hematologic: Reports: no symptoms Musculoskeletal: Reports: no symptoms Allergies: Coded Allergies: No Known Allergies (Unverified , 12/26/12) Objective Vital Signs Last 24 Hour Vital Signs Date Time Temp Pulse Resp B/P (MAP) Pulse Ox O2 Delivery O2 Flow Rate FiO2 12/28/18 12:00 98.0 85 18 132/85 (101) 97 12/28/18 10:07 Nasal Cannula 2.0 12/28/18 08:34 61 20 96 Room Air 21 12/28/18 08:34 96 Room Air 21 12/28/18 08:33 61 20 96 Room Air 21 12/28/18 08:30 85 136/67 12/28/18 08:29 136/67 12/28/18 08:00 98.8 85 18 136/67 (90) 96 12/28/18 04:00 72 12/28/18 04:00 97.4 71 18 131/80 (97) 96 12/28/18 00:00 68 12/28/18 00:00 98.9 69 19 134/63 (86) 95 12/27/18 21:00 Nasal Cannula 2.0 12/27/18 20:00 66 12/27/18 20:00 98.7 71 18 145/80 (101) 97 12/27/18 19:46 74 18 97 Nasal Cannula 2.0 28 12/27/18 19:46 97 Nasal Cannula 2.0 28 12/27/18 17:01 97.5 72 18 117/78 (91) 97 Height (Feet): 5 Height (Inches): 6.00 Weight (Pounds): 145 General Appearance: WD/WN, no acute distress HEENT: normocephalic, atraumatic, anicteric, mucous membranes moist, PERRL Respiratory/Chest: chest wall non-tender, lungs clear, normal breath sounds, no respiratory distress, no accessory muscle use Cardiovascular: normal peripheral pulses, normal rate, regular rhythm, no gallop/murmur, no JVD Abdomen: normal bowel sounds, soft, non tender, no organomegaly, non distended , no mass, no scars Genitourinary: normal external genitalia Extremities: no cyanosis, no clubbing Skin: no rash, no lesions, no ulcers 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: machine try out setter II-XII grossly normal, no motor/sensory deficits, alert, responsive Lymphatic: no neck adenopathy, no groin adenopathy Musculoskeletal: normal muscle bulk, no effusion Microbiology Date/Time Source Procedure Growth Status 12/25/18 17:15 Blood Blood Culture - Preliminary NO GROWTH AFTER 48 HOURS Resulted 12/25/18 17:00 Blood Blood Culture - Preliminary NO GROWTH AFTER 48 HOURS Resulted Current Medications Medications (Trade) Dose Ordered Sig/Kevin Route PRN Reason Start Time Stop Time Status Last Admin Dose Admin Acetaminophen (Tylenol) 650 mg Q6H PRN ORAL Mild Pain/Temp > 100.5 12/24/18 05:45 01/23/19 05:44 12/25/18 23:50 Albuterol/ Ipratropium (Albuterol/ Ipratropium) 3 ml Q4H PRN HHN Shortness of Breath 12/24/18 05:30 12/29/18 05:29 12/28/18 08:33 Aripiprazole (Abilify) 10 mg DAILY ORAL 12/24/18 09:00 01/23/19 08:59 12/28/18 08:29 Atorvastatin Calcium (Lipitor) 80 mg BEDTIME ORAL 12/24/18 21:00 01/23/19 20:59 12/27/18 20:32 Bethanechol Chloride (Urecholine) 25 mg THREE TIMES A DAY ORAL 12/24/18 09:00 01/23/19 08:59 12/28/18 11:57 Bisacodyl (Dulcolax) 10 mg DAILY ORAL 12/24/18 09:00 01/23/19 08:59 12/28/18 08:30 Cefepime HCl 1 gm/ Dextrose 55 ml @ 110 mls/hr Q24H IVPB 12/26/18 17:00 01/08/19 16:59 12/27/18 16:37 Clopidogrel Bisulfate (Plavix) 75 mg DAILY ORAL 12/24/18 09:00 01/23/19 08:59 12/28/18 08:29 Dextrose (Dextrose 50%) 25 ml Q30M PRN IV Hypoglycemia 12/24/18 05:30 01/23/19 05:29 Dextrose (Dextrose 50%) 50 ml Q30M PRN IV Hypoglycemia 12/24/18 05:30 01/23/19 05:29 Diphenhydramine HCl (Benadryl) 50 mg Q6H PRN ORAL Itching 12/24/18 05:45 01/23/19 05:44 Docusate Sodium (Colace) 250 mg TWICE A DAY ORAL 12/24/18 09:00 01/23/19 08:59 12/28/18 08:30 Epoetin Kimani (Epoetin Kimani(ESRD on dialysis)) 2,000 unit -MON SUBQ 12/26/18 21:00 01/25/19 20:59 12/26/18 22:09 Epoetin Kimani (Epoetin Kimani(ESRD on dialysis)) 3,000 unit SUBQ 12/26/18 21:00 01/25/19 20:59 12/26/18 22:09 Famotidine (Pepcid) 20 mg BID ORAL 12/24/18 09:00 01/23/19 08:59 12/28/18 08:29 Fluticasone Propionate (Flonase) 1 spray DAILY NASAL 12/24/18 09:00 01/23/19 08:59 12/28/18 08:37 Insulin Aspart (NovoLOG) BEFORE MEALS AND HS SUBQ 12/24/18 06:30 01/23/19 06:29 12/28/18 11:56 Lisinopril (Prinivil) 20 mg DAILY ORAL 12/28/18 09:00 01/23/19 08:59 12/28/18 08:29 Loratadine (Claritin 10mg) 10 mg DAILY ORAL 12/28/18 09:30 01/04/19 09:29 12/28/18 08:37 Metoprolol Succinate (Toprol XL) 50 mg DAILY ORAL 12/24/18 09:00 01/23/19 08:59 12/28/18 08:30 Ondansetron HCl (Zofran) 4 mg Q4H PRN IVP Nausea & Vomiting 12/24/18 12:00 01/23/19 11:59 12/24/18 12:00 Promethazine HCl/ Dextromethorphan (Phenergan DM) 6.25 mg Q8H PRN ORAL For Cough 12/24/18 10:30 01/23/19 10:29 12/26/18 22:34 Tamsulosin HCl (Flomax) 0.4 mg DAILY ORAL 12/24/18 09:00 01/23/19 08:59 12/28/18 08:29 Trazodone HCl (Desyrel) 100 mg BEDTIME ORAL 12/24/18 21:00 01/23/19 20:59 12/27/18 20:32 Vancomycin HCl (Vanco rx to dose) 1 ea DAILY PRN MISC Per rx protocol 12/24/18 13:45 01/23/19 13:44 Bertin Rothman M.D. Dec 28, 2018 16:28
[2018-12-28] MEDS: Cefepime HCl 1 GM in D5W 55 ML IVPB SCH (17:55)
--- NOTE | 2018-12-28 19:30 | NUR ---
NURSE NOTES: RECEIVED PATIENT LYING IN BED, AWAKE, ALERT/ORIENTED X3, ABLE TO EFFECTIVELY VERBALIZE NEEDS, DENIES PAIN. IV INTACT TO LEFT FOREARM/GAUGE 22, NO REDNESS/SWELLING NOTED. NO SIGNS AND SYMPTOMS OF ACUTE CARDIO RESPIRATORY DISTRESS/SHORTNESS OF BREATH, DENIES CHEST PAIN, NO EDEMA NOTED, NOTED WITH NON PRODUCTIVE COUGH. NO REPORT OF GI DISCOMFORT, NO N/V/D. LARRY CATHETER INTACT/PATENT, DRAINING YELLOW URINE VIA GRAVITY, NO SEDEMENT NOTED, DRAINAGE BAG POSITIONED BELOW LEVEL OF WAIST TO PREVENT URINE BACK FLOW. ASSISTED WITH COMFORT CARE/REPOSITIONING. TOLERATED WELL. FREQUENT ROUNDING FOR SAFETY/NEEDS. CONTINUE WITH CURRENT PLAN OF CARE. NAD.
[2018-12-28 20:00] VITALS: BP 128/71
--- NOTE | 2018-12-28 20:16 | NUR ---
HAND-OFF: Report given to MATT VAZQUEZ.
[2018-12-28] MEDS: TraZODone 100mg tab ORAL SCH (21:28)
[2018-12-28] MEDS: Atorvastatin 80mg tab ORAL SCH (21:28)
[2018-12-28] MEDS: Epoetin Alfa-EPBX(ESRD on dialysis)2000 units/ml vial SUBQ SCH (21:37)
[2018-12-28] MEDS: Epoetin Alfa-EPBX(ESRD on dialysis)3000 units/ml vial SUBQ SCH (21:37)
[2018-12-28] MEDS: Promethazine/DM 6.25mg/5ml ORAL PRN (22:04)
[2018-12-29] VITALS (7 sets, daily range): BP systolic 112–138; BP diastolic 58–90
[2018-12-29] MEDS: NovoLOG Insulin Flexpen SUBQ SCH ×4 (06:29→20:54)
--- NOTE | 2018-12-29 06:39 | NUR ---
NURSE NOTES:BLOOD GLUCOSE LEVEL 191MG/DL, ASYMPTOMATIC, ADMINISTERED 4 UNITS NOVOLOG INSULIN SUBCUT, NO ADVERSE REACTION NOTED AFTER 15 MINUTES. NAD.
--- NOTE | 2018-12-29 07:08 | NUR ---
HAND-OFF: Report given to TAYLOR BUCKLEY.
--- NOTE | 2018-12-29 07:09 | NUR ---
NURSE NOTES: Received report from TAYLOR Ivy. Patient is resting in bed, in semi sutton position. patient in stable condition with no niharika and symptoms of acute distress at this time. Breathing is unlabored with 2 liter Nasal cannula. Dumont Catheter intact and draining yellow urine. Bed is in lowest position with two side rails up, brakes engaged . Call light and bed side table are within reach. Will continue plan of care.
[2018-12-29 07:15] LABS: ANION GAP 5 mmol/L (5-15); BLOOD UREA NITROGEN 26 mg/dL (7-18); CALCIUM 8.3 MG/DL (8.5-10.1); CARBON DIOXIDE 31 MMOL/L (21-32); CHLORIDE 100 MMOL/L (98-107); POTASSIUM 3.7 MMOL/L (3.5-5.1); SODIUM 136 MMOL/L (136-145)
[2018-12-29 07:16] LABS: BASOPHILS % (AUTO) 0.9 % (0.0-2.0); EOSINOPHILS % (AUTO) 4.2 % (0.0-3.0); HEMATOCRIT 27.9 % (42.0-52.0); HEMOGLOBIN 9.3 G/DL (14.2-18.0); LYMPHOCYTES % (AUTO) 27.1 % (20.0-45.0); MEAN CORPUSCULAR VOLUME 95 FL (80-99); MONOCYTES % (AUTO) 9.2 % (1.0-10.0); NEUTROPHILS % (AUTO) 58.7 % (45.0-75.0); PLATELET COUNT 242 K/UL (150-450); RED BLOOD COUNT 2.93 M/UL (4.70-6.10); RED CELL DISTRIBUTION WIDTH 11.8 % (11.6-14.8); WHITE BLOOD COUNT 6.1 K/UL (4.8-10.8)
--- NOTE | 2018-12-29 08:07 | Nephrology Progress Note ---
Assessment/Plan Status: stable Assessment/Plan: A/P 1) ESRD- HD MWF. - will hold HD until Monday - permacath removed. Follow labs until Monday 2) Sepsis- CAP and UTI - Abx per ID mgmt - removed permacath - will follow daily labs and replace catheter on Monday. Labs stable 3) Anemia of CKD- EPO with HD with Hgb goal >10 4) HTN- stable 5) DM- per PCP mgmt Subjective Date patient seen: Dec 29, 2018 Time patient seen: 08:06 ROS Limited/Unobtainable: No Allergies: Coded Allergies: No Known Allergies (Unverified , 12/26/12) Subjective Patient without complaints. No SOB. Objective Last 24 Hour Vital Signs Date Time Temp Pulse Resp B/P (MAP) Pulse Ox O2 Delivery O2 Flow Rate FiO2 12/29/18 06:43 97 Room Air 21 12/29/18 06:43 74 16 97 Room Air 21 12/29/18 04:00 98.7 55 18 130/74 (92) 99 12/29/18 04:00 56 12/29/18 00:00 98.6 54 16 125/60 (81) 99 12/29/18 00:00 54 12/28/18 21:51 97 Nasal Cannula 2.0 28 12/28/18 21:51 78 20 97 Room Air 21 12/28/18 21:00 Nasal Cannula 2.0 12/28/18 20:00 64 12/28/18 20:00 98.7 64 18 128/71 (90) 99 12/28/18 16:00 87 12/28/18 16:00 98.7 79 18 142/76 (98) 97 12/28/18 12:00 77 12/28/18 12:00 98.0 85 18 132/85 (101) 97 12/28/18 10:07 Nasal Cannula 2.0 12/28/18 08:34 61 20 96 Room Air 21 12/28/18 08:34 96 Room Air 21 12/28/18 08:33 61 20 96 Room Air 21 12/28/18 08:30 85 136/67 12/28/18 08:29 136/67 Intake and Output 12/28/18 12/29/18 18:59 06:59 Intake Total 100 ml 390 ml Output Total 600 ml 500 ml Balance -500 ml -110 ml Intake Oral 100 ml 390 ml Output Urine Total 600 ml 500 ml Laboratory Tests 12/29/18 06:05: White Blood Count 6.1, Red Blood Count 2.93L, Hemoglobin 9.3L, Hematocrit 27.9L , Mean Corpuscular Volume 95, Mean Corpuscular Hemoglobin 31.7H, Mean Corpuscular Hemoglobin Concent 33.3, Red Cell Distribution Width 11.8, Platelet Count 242, Mean Platelet Volume 5.9L, Neutrophils (%) (Auto) 58.7, Lymphocytes ( %) (Auto) 27.1, Monocytes (%) (Auto) 9.2, Eosinophils (%) (Auto) 4.2H, Basophils (%) (Auto) 0.9, Random Vancomycin Level 12.6 12/29/18 07:05: Sodium Level 136, Potassium Level 3.7, Chloride Level 100, Carbon Dioxide Level 31, Anion Gap 5, Blood Urea Nitrogen 26H, Creatinine 3.0H, Estimat Glomerular Filtration Rate 21.0, Glucose Level 153H, Calcium Level 8.3L Height (Feet): 5 Height (Inches): 6.00 Weight (Pounds): 145 General Appearance: no apparent distress, alert EENT: normal ENT inspection Neck: normal alignment, supple Cardiovascular: normal rate, regular rhythm Respiratory/Chest: lungs clear, normal breath sounds Abdomen: non tender, soft Edema: no edema noted Arm (L), no edema noted Arm (R), no edema noted Leg (L), no edema noted Leg (R), no edema noted Pedal (L), no edema noted Pedal (R), no edema noted Generalized Mendez Roman MD Dec 29, 2018 08:07
[2018-12-29] MEDS: Flonase Nasal Inhaler 16gm NASAL SCH (08:33)
[2018-12-29] MEDS: Tamsulosin 0.4mg cap ORAL SCH (08:34)
[2018-12-29] MEDS: Metoprolol Succinate XL 50mg tab ORAL SCH (08:34)
[2018-12-29] MEDS: Bethanechol 25mg Tab ORAL SCH ×3 (08:34→17:40)
[2018-12-29] MEDS: Docusate 250mg cap ORAL SCH ×2 (08:34→17:40)
[2018-12-29] MEDS: ARIPiprazole 10mg tab ORAL SCH (08:34)
[2018-12-29] MEDS: Bisacodyl EC 5mg tab ORAL SCH (08:34)
[2018-12-29] MEDS: Lisinopril 20mg tab ORAL SCH (08:34)
[2018-12-29] MEDS ORDERED: Vancomycin 1gm/D5W 275ml IVPB ONE ×2 (10:30)
--- NOTE | 2018-12-29 11:00 | General Progress Note ---
Assessment/Plan Status: stable Assessment/Plan: 1. pneumonia - improved. Cont cefepime and vanco. ID following. 2. CHF - resolved. On HD. 3. H/O A Fib with RVR, currently on NSR. cardiology following. 4. UTI - improved. cont cefepime for total of 10 days per ID. walsh changed. 5. Sepsis - improved. cont IV abx. repeat blood cultures neg x 48 hrs. ID following. Perm A cath culture negative so far. 6. CRF on HD - renal for HD. s/p Perm A cath removal yesterday. Plan for new Perm A cath on monday. D/C planning to [facility] on monday after HD. 7. DM II - SSI. 8. BPH - cont home meds. 9. HTN - cont home meds. 10. Chronic urinary Retention due to neurogenic bladder. 11. HLD - cont home meds. 12. CAD - stable. 13. Asthma - cont home meds. 14. Mood disorder - cont home meds. Subjective Date patient seen: Dec 29, 2018 Constitutional: Reports: no symptoms HEENT: Reports: no symptoms Cardiovascular: Reports: no symptoms Respiratory: Reports: no symptoms, cough Gastrointestinal/Abdominal: Reports: no symptoms Genitourinary: Reports: no symptoms 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: Reports: no symptoms Endocrine: Reports: no symptoms Hematologic/Lymphatic: Reports: no symptoms Allergies: Coded Allergies: No Known Allergies (Unverified , 12/26/12) Subjective His coughing has improved. He is afebrile. His Perm A cath removed yesterday. His new walsh was placed yesterday as well. no sob or chest pain. no nausea or vomiting. Objective Last 24 Hour Vital Signs Date Time Temp Pulse Resp B/P (MAP) Pulse Ox O2 Delivery O2 Flow Rate FiO2 12/29/18 08:34 119/90 12/29/18 08:34 62 119/90 12/29/18 08:00 98.0 77 18 119/90 (100) 99 12/29/18 06:43 97 Room Air 21 12/29/18 06:43 74 16 97 Room Air 21 12/29/18 04:00 98.7 55 18 130/74 (92) 99 12/29/18 04:00 56 12/29/18 00:00 98.6 54 16 125/60 (81) 99 7/20/19 00:00 54 12/28/18 21:51 97 Nasal Cannula 2.0 28 12/28/18 21:51 78 20 97 Room Air 21 12/28/18 21:00 Nasal Cannula 2.0 12/28/18 20:00 64 12/28/18 20:00 98.7 64 18 128/71 (90) 99 12/28/18 16:00 87 12/28/18 16:00 98.7 79 18 142/76 (98) 97 12/28/18 12:00 77 12/28/18 12:00 98.0 85 18 132/85 (101) 97 Intake and Output 12/28/18 12/29/18 19:00 07:00 Intake Total 100 ml 390 ml Output Total 600 ml 500 ml Balance -500 ml -110 ml Intake Oral 100 ml 390 ml Output Urine Total 600 ml 500 ml Laboratory Tests 12/29/18 06:05: White Blood Count 6.1, Red Blood Count 2.93L, Hemoglobin 9.3L, Hematocrit 27.9L , Mean Corpuscular Volume 95, Mean Corpuscular Hemoglobin 31.7H, Mean Corpuscular Hemoglobin Concent 33.3, Red Cell Distribution Width 11.8, Platelet Count 242, Mean Platelet Volume 5.9L, Neutrophils (%) (Auto) 58.7, Lymphocytes ( %) (Auto) 27.1, Monocytes (%) (Auto) 9.2, Eosinophils (%) (Auto) 4.2H, Basophils (%) (Auto) 0.9, Random Vancomycin Level 12.6 12/29/18 07:05: Sodium Level 136, Potassium Level 3.7, Chloride Level 100, Carbon Dioxide Level 31, Anion Gap 5, Blood Urea Nitrogen 26H, Creatinine 3.0H, Estimat Glomerular Filtration Rate 21.0, Glucose Level 153H, Calcium Level 8.3L Height (Feet): 5 Height (Inches): 6.00 Weight (Pounds): 145 General Appearance: alert EENT: normal ENT inspection Neck: non-tender, supple Cardiovascular: normal rate, regular rhythm Respiratory/Chest: lungs clear, normal breath sounds, no respiratory distress Abdomen: normal bowel sounds, non tender, soft Extremities: normal range of motion, non-tender Edema: no edema noted Arm (L), no edema noted Arm (R), no edema noted Leg (L), no edema noted Leg (R), no edema noted Pedal (L), no edema noted Pedal (R), no edema noted Generalized Neurologic: alert, oriented x 3, responsive Skin: warm/dry Lymphatic: normal anterior cervical (L), normal anterior cervical (R), normal posterior cervical (L), normal posterior cervical (R), normal submandibular (L) , normal submandibular (R), normal supraclavicular (L), normal supraclavicular ( R), normal axillary (L), normal axillary (R), normal inguinal (L), normal inguinal (R), normal other Gem Best MD Dec 29, 2018 11:00
--- NOTE | 2018-12-29 13:10 | Cardiac Electrophysiology PN ---
Assessment/Plan Assessment/Plan 1. Shortness of breath due to underlying pneumonia and CHF His BNP were also elevated at 2769. Echocardiogram EF 65%. On hemodialysis. 2. Paroxysmal atrial fibrillation, currently in sinus rhythm. Had brief atrial fib that self terminated. On Toprol-XL 50 mg daily. 3. Congestive heart failure. On Toprol,lisinopril 40 daily and hemodialysis. 4. Coronary artery disease with history of prior stent. Denies any chest pain. On Plavix, metoprolol and Lipitor 80 mg daily. 5. Sepsis. On broad-spectrum IV antibiotics. Dialysis catheter removed. Awaiting new catheter placement and HD on Monday DW RN Subjective Subjective In Sinus seng. No CP or SOB. Objective Last 24 Hour Vital Signs Date Time Temp Pulse Resp B/P (MAP) Pulse Ox O2 Delivery O2 Flow Rate FiO2 12/29/18 12:00 98.0 64 18 138/66 (90) 98 12/29/18 09:00 Nasal Cannula 2.0 12/29/18 08:34 119/90 12/29/18 08:34 62 119/90 12/29/18 08:00 98.0 77 18 119/90 (100) 99 12/29/18 08:00 63 12/29/18 06:43 97 Room Air 21 12/29/18 06:43 74 16 97 Room Air 21 12/29/18 04:00 98.7 55 18 130/74 (92) 99 12/29/18 04:00 56 12/29/18 00:00 98.6 54 16 125/60 (81) 99 12/29/18 00:00 54 12/28/18 21:51 97 Nasal Cannula 2.0 28 12/28/18 21:51 78 20 97 Room Air 21 12/28/18 21:00 Nasal Cannula 2.0 12/28/18 20:00 64 12/28/18 20:00 98.7 64 18 128/71 (90) 99 12/28/18 16:00 87 12/28/18 16:00 98.7 79 18 142/76 (98) 97 Intake and Output 12/28/18 12/29/18 19:00 07:00 Intake Total 100 ml 390 ml Output Total 600 ml 500 ml Balance -500 ml -110 ml Intake Oral 100 ml 390 ml Output Urine Total 600 ml 500 ml Laboratory Tests Test 12/29/18 06:05 12/29/18 07:05 White Blood Count 6.1 K/UL (4.8-10.8) Red Blood Count 2.93 M/UL (4.70-6.10) L Hemoglobin 9.3 G/DL (14.2-18.0) L Hematocrit 27.9 % (42.0-52.0) L Mean Corpuscular Volume 95 FL (80-99) Mean Corpuscular Hemoglobin 31.7 PG (27.0-31.0) H Mean Corpuscular Hemoglobin Concent 33.3 G/DL (32.0-36.0) Red Cell Distribution Width 11.8 % (11.6-14.8) Platelet Count 242 K/UL (150-450) Mean Platelet Volume 5.9 FL (6.5-10.1) L Neutrophils (%) (Auto) 58.7 % (45.0-75.0) Lymphocytes (%) (Auto) 27.1 % (20.0-45.0) Monocytes (%) (Auto) 9.2 % (1.0-10.0) Eosinophils (%) (Auto) 4.2 % (0.0-3.0) H Basophils (%) (Auto) 0.9 % (0.0-2.0) Random Vancomycin Level 12.6 ug/mL Sodium Level 136 MMOL/L (136-145) Potassium Level 3.7 MMOL/L (3.5-5.1) Chloride Level 100 MMOL/L (98-107) Carbon Dioxide Level 31 MMOL/L (21-32) Anion Gap 5 mmol/L (5-15) Blood Urea Nitrogen 26 mg/dL (7-18) H Creatinine 3.0 MG/DL (0.55-1.30) H Estimat Glomerular Filtration Rate 21.0 mL/min (>60) Glucose Level 153 MG/DL (74-106) H Calcium Level 8.3 MG/DL (8.5-10.1) L Microbiology Date/Time Source Procedure Growth Status 12/27/18 14:15 Chest Catheter Tip Culture - Preliminary NO GROWTH Resulted Objective HEAD AND NECK: No JVD. LUNGS: Coarse rhonchi. CARDIOVASCULAR: Regular S1 and S2 with no gallop or murmur. ABDOMEN: Soft and nontender. EXTREMITIES: No pitting edema. Milan Fields MD 20, 2019 13:10
--- NOTE | 2018-12-29 13:30 | NUR ---
TRANSFER TO FLOOR: Patient transferred to Med- surg, per Dr. Best's order. Report given to TAYLOR Nolasco. Belongings and medications given to TAYLOR Nolasco. Patient transferred in stable condition.
--- NOTE | 2018-12-29 13:30 | NUR ---
NURSE NOTES: Report received from Kesha VAZQUEZ (Tele), patient transferred from 219-1 via bed to 318-2 on O2 2L NC in stable condition. Patient alert, oriented x3, calm. Oriented patient to room and call light for safety. FC patent to gravity , draining y/cl urine. Denies pain. Skin intact. Left clavicle dressing from old perma-cath site, CDI. LFA heplock intact. Belongings reviewed, all at bedside. VSS. Bed in lowest position, call light in reach, will continue to monitor.
[2018-12-29] MEDS: Promethazine/DM 6.25mg/5ml ORAL PRN ×2 (14:23→22:38)
--- NOTE | 2018-12-29 14:30 | NUR ---
NURSE NOTES: Patient noted with non-productive cough, lungs diminished, remains on O2 2L NC, instructed patient to keep hydrated, administered Phenergen PRN as ordered, will continue to monitor.
--- NOTE | 2018-12-29 14:50 | Surgery Progress Note ---
Surgery Progress Note Subjective Procedure Performed removal of right chest wall tunneled HD catheter Symptoms: improved Objective Last 24 Hour Vital Signs Date Time Temp Pulse Resp B/P (MAP) Pulse Ox O2 Delivery O2 Flow Rate FiO2 12/29/18 14:13 98.4 71 18 114/58 (76) 98 12/29/18 12:00 98.0 64 18 138/66 (90) 98 12/29/18 12:00 65 12/29/18 09:00 Nasal Cannula 2.0 12/29/18 08:34 119/90 12/29/18 08:34 62 119/90 12/29/18 08:00 98.0 77 18 119/90 (100) 99 12/29/18 08:00 63 12/29/18 06:43 97 Room Air 21 12/29/18 06:43 74 16 97 Room Air 21 12/29/18 04:00 98.7 55 18 130/74 (92) 99 12/29/18 04:00 56 12/29/18 00:00 98.6 54 16 125/60 (81) 99 12/29/18 00:00 54 12/28/18 21:51 97 Nasal Cannula 2.0 28 12/28/18 21:51 78 20 97 Room Air 21 12/28/18 21:00 Nasal Cannula 2.0 12/28/18 20:00 64 12/28/18 20:00 98.7 64 18 128/71 (90) 99 12/28/18 16:00 87 12/28/18 16:00 98.7 79 18 142/76 (98) 97 I&O Intake and Output 12/28/18 12/29/18 19:00 07:00 Intake Total 100 ml 390 ml Output Total 600 ml 500 ml Balance -500 ml -110 ml Intake Oral 100 ml 390 ml Output Urine Total 600 ml 500 ml Dressing: dry Wound: clean Cardiovascular: RSR Respiratory: clear Abdomen: soft, non-tender, present bowel sounds Extremities: no tenderness, no cyanosis Laboratory Tests Test 12/29/18 06:05 12/29/18 07:05 White Blood Count 6.1 K/UL (4.8-10.8) Red Blood Count 2.93 M/UL (4.70-6.10) L Hemoglobin 9.3 G/DL (14.2-18.0) L Hematocrit 27.9 % (42.0-52.0) L Mean Corpuscular Volume 95 FL (80-99) Mean Corpuscular Hemoglobin 31.7 PG (27.0-31.0) H Mean Corpuscular Hemoglobin Concent 33.3 G/DL (32.0-36.0) Red Cell Distribution Width 11.8 % (11.6-14.8) Platelet Count 242 K/UL (150-450) Mean Platelet Volume 5.9 FL (6.5-10.1) L Neutrophils (%) (Auto) 58.7 % (45.0-75.0) Lymphocytes (%) (Auto) 27.1 % (20.0-45.0) Monocytes (%) (Auto) 9.2 % (1.0-10.0) Eosinophils (%) (Auto) 4.2 % (0.0-3.0) H Basophils (%) (Auto) 0.9 % (0.0-2.0) Random Vancomycin Level 12.6 ug/mL Sodium Level 136 MMOL/L (136-145) Potassium Level 3.7 MMOL/L (3.5-5.1) Chloride Level 100 MMOL/L (98-107) Carbon Dioxide Level 31 MMOL/L (21-32) Anion Gap 5 mmol/L (5-15) Blood Urea Nitrogen 26 mg/dL (7-18) H Creatinine 3.0 MG/DL (0.55-1.30) H Estimat Glomerular Filtration Rate 21.0 mL/min (>60) Glucose Level 153 MG/DL (74-106) H Calcium Level 8.3 MG/DL (8.5-10.1) L Plan Problems: (1) Sepsis Assessment & Plan: 68-year-old male presented with fevers and sepsis. Patient bacteremic Likely etiology is his tunneled left temporary hemodialysis catheter Recommend removal See report We will attempt to keep patient line free as long as possible then placed new temporary even as catheter for him plan for new line monday Antibiotics as per ID Thank you for allowing me to participate in patient's care (2) Fever (3) Catheter-associated urinary tract infection (4) Influenza-like symptoms (5) ESRD (end stage renal disease) on dialysis (6) HCAP (healthcare-associated pneumonia) (7) Pruritic dermatitis (8) Dyspnea (9) Eye problem (10) Eye problem Trevon Baptiste Dec 29, 2018 14:50
[2018-12-29] MEDS: Cefepime HCl 1 GM in D5W 55 ML IVPB SCH (17:22)
--- NOTE | 2018-12-29 19:50 | NUR ---
HAND-OFF: Report given to Lucille VAZQUEZ.
--- NOTE | 2018-12-29 20:00 | NUR ---
NURSE NOTES: Receive a report from TAYLOR Nolasco. Done rounds.
[2018-12-29] MEDS: Atorvastatin 80mg tab ORAL SCH (20:52)
[2018-12-29] MEDS: TraZODone 100mg tab ORAL SCH (20:52)
--- NOTE | 2018-12-29 22:30 | NUR ---
NURSE NOTES: Pt is awake and alert. No acute distress noted. Denies any pain or SOB. Noted coughing without phlegm. Lung sound clear bilateral. Administer prn cough medication. Dumont catheter inserted state and drained with yellowish urine w/o hematuria or sediments. Will continue to monitor.
--- NOTE | 2018-12-29 22:36 | Infectious Diseases Prog Note ---
Assessment/Plan Problems: (1) Sepsis Assessment & Plan: with staph epidermidis source suspect HD CATHETER INFECTION , S/P removal , mar place a new catheter in 48 hours . continue vancomycin DOSED AFTER EACH HD for two weeks course of treatment , transthoracic echo ruled out vegetations . repeated blood culture on 12/25 is negative x2 which confirm clearance. EOT 01/10/19 (2) HCAP (healthcare-associated pneumonia) Assessment & Plan: with cough, SOB, and high fever ALREADY ON vancomycin treatment for sepsis and cefepime for UTI . aspiration precaution (3) Catheter-associated urinary tract infection Assessment & Plan: due to klebsiella oxytoca , continue cefepime for 10 days , S/P walsh catheter change (4) Fever Assessment & Plan: due to the above, improving , continue antibiotics and tylenol as needed (5) ESRD (end stage renal disease) on dialysis Assessment & Plan: has left perm A cath , with clean site and no sign of local infection , but being bacteremic source most likely is his HD catheter , recommend to remove and place a new one in 48 hours , continue HD as per renal Subjective Constitutional: Reports: no symptoms HEENT: Reports: no symptoms Respiratory: Reports: no symptoms Breasts: Reports: no symptoms Cardiovascular: Reports: no symptoms Gastrointestinal/Abdominal: Reports: no symptoms Genitourinary: Reports: no symptoms Neurologic: Reports: no symptoms Psychiatric: Reports: no symptoms Skin: Reports: no symptoms Endocrine: Reports: no symptoms Hematologic: Reports: no symptoms Allergies: Coded Allergies: No Known Allergies (Unverified , 12/26/12) Objective Vital Signs Last 24 Hour Vital Signs Date Time Temp Pulse Resp B/P (MAP) Pulse Ox O2 Delivery O2 Flow Rate FiO2 12/29/18 16:30 Nasal Cannula 2.0 12/29/18 16:26 98.2 64 20 112/58 (76) 96 12/29/18 14:13 98.4 71 18 114/58 (76) 98 12/29/18 12:00 98.0 64 18 138/66 (90) 98 12/29/18 12:00 65 12/29/18 09:00 Nasal Cannula 2.0 12/29/18 08:34 119/90 12/29/18 08:34 62 119/90 12/29/18 08:00 98.0 77 18 119/90 (100) 99 12/29/18 08:00 63 12/29/18 06:43 97 Room Air 21 12/29/18 06:43 74 16 97 Room Air 21 12/29/18 04:00 98.7 55 18 130/74 (92) 99 12/29/18 04:00 56 12/29/18 00:00 98.6 54 16 125/60 (81) 99 12/29/18 00:00 54 Height (Feet): 5 Height (Inches): 6.00 Weight (Pounds): 145 General Appearance: WD/WN, no acute distress HEENT: normocephalic, atraumatic, anicteric, mucous membranes moist, PERRL Respiratory/Chest: chest wall non-tender, lungs clear, normal breath sounds, no respiratory distress, no accessory muscle use Cardiovascular: normal peripheral pulses, normal rate, regular rhythm, no gallop/murmur, no JVD Abdomen: normal bowel sounds, soft, non tender, no organomegaly, non distended , no mass, no scars Genitourinary: normal external genitalia Extremities: no cyanosis, no clubbing Skin: no rash, no lesions, no ulcers 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: clerk carrier II-XII grossly normal, no motor/sensory deficits, alert, responsive Lymphatic: no neck adenopathy, no groin adenopathy Musculoskeletal: normal muscle bulk Microbiology Date/Time Source Procedure Growth Status 12/27/18 14:15 Chest Catheter Tip Culture - Preliminary NO GROWTH Resulted Laboratory Tests Test 12/29/18 06:05 12/29/18 07:05 White Blood Count 6.1 K/UL (4.8-10.8) Red Blood Count 2.93 M/UL (4.70-6.10) L Hemoglobin 9.3 G/DL (14.2-18.0) L Hematocrit 27.9 % (42.0-52.0) L Mean Corpuscular Volume 95 FL (80-99) Mean Corpuscular Hemoglobin 31.7 PG (27.0-31.0) H Mean Corpuscular Hemoglobin Concent 33.3 G/DL (32.0-36.0) Red Cell Distribution Width 11.8 % (11.6-14.8) Platelet Count 242 K/UL (150-450) Mean Platelet Volume 5.9 FL (6.5-10.1) L Neutrophils (%) (Auto) 58.7 % (45.0-75.0) Lymphocytes (%) (Auto) 27.1 % (20.0-45.0) Monocytes (%) (Auto) 9.2 % (1.0-10.0) Eosinophils (%) (Auto) 4.2 % (0.0-3.0) H Basophils (%) (Auto) 0.9 % (0.0-2.0) Random Vancomycin Level 12.6 ug/mL Sodium Level 136 MMOL/L (136-145) Potassium Level 3.7 MMOL/L (3.5-5.1) Chloride Level 100 MMOL/L (98-107) Carbon Dioxide Level 31 MMOL/L (21-32) Anion Gap 5 mmol/L (5-15) Blood Urea Nitrogen 26 mg/dL (7-18) H Creatinine 3.0 MG/DL (0.55-1.30) H Estimat Glomerular Filtration Rate 21.0 mL/min (>60) Glucose Level 153 MG/DL (74-106) H Calcium Level 8.3 MG/DL (8.5-10.1) L Current Medications Medications (Trade) Dose Ordered Sig/Kevin Route PRN Reason Start Time Stop Time Status Last Admin Dose Admin Acetaminophen (Tylenol) 650 mg Q6H PRN ORAL Mild Pain/Temp > 100.5 12/29/18 14:00 01/23/19 13:59 Aripiprazole (Abilify) 10 mg DAILY ORAL 12/30/18 09:00 01/23/19 08:59 Atorvastatin Calcium (Lipitor) 80 mg BEDTIME ORAL 12/29/18 21:00 01/23/19 20:59 12/29/18 20:52 Bethanechol Chloride (Urecholine) 25 mg THREE TIMES A DAY ORAL 12/29/18 18:00 01/23/19 08:59 12/29/18 17:40 Bisacodyl (Dulcolax) 10 mg DAILY ORAL 12/30/18 09:00 01/23/19 08:59 Cefepime HCl 1 gm/ Dextrose 55 ml @ 110 mls/hr Q24H IVPB 12/29/18 17:00 01/08/19 16:59 12/29/18 17:22 Clopidogrel Bisulfate (Plavix) 75 mg DAILY ORAL 12/30/18 09:00 8/14/19 08:59 Dextrose (Dextrose 50%) 25 ml Q30M PRN IV Hypoglycemia 12/29/18 14:00 01/23/19 05:29 Dextrose (Dextrose 50%) 50 ml Q30M PRN IV Hypoglycemia 12/29/18 14:00 01/23/19 05:29 Diphenhydramine HCl (Benadryl) 50 mg Q6H PRN ORAL Itching 12/29/18 14:00 01/23/19 13:59 Docusate Sodium (Colace) 250 mg TWICE A DAY ORAL 12/29/18 18:00 01/23/19 08:59 12/29/18 17:40 Epoetin Kimani (Epoetin Kimani(ESRD on dialysis)) 2,000 unit MON- SUBQ 12/31/18 21:00 01/25/19 20:59 Epoetin Kimani (Epoetin Kimani(ESRD on dialysis)) 3,000 unit MON- SUBQ 12/31/18 21:00 01/25/19 20:59 Famotidine (Pepcid) 20 mg BID ORAL 12/29/18 18:00 01/23/19 08:59 12/29/18 17:40 Fluticasone Propionate (Flonase) 1 spray DAILY NASAL 12/30/18 09:00 01/23/19 08:59 Insulin Aspart (NovoLOG) BEFORE MEALS AND HS SUBQ 12/29/18 16:30 01/23/19 06:29 12/29/18 20:54 Lisinopril (Prinivil) 20 mg DAILY ORAL 12/30/18 09:00 01/23/19 08:59 Loratadine (Claritin 10mg) 10 mg DAILY ORAL 12/30/18 09:00 01/04/19 09:29 Metoprolol Succinate (Toprol XL) 50 mg DAILY ORAL 12/30/18 09:00 01/23/19 08:59 Ondansetron HCl (Zofran) 4 mg Q4H PRN IVP Nausea & Vomiting 12/29/18 14:00 01/23/19 13:59 Promethazine HCl/ Dextromethorphan (Phenergan DM) 6.25 mg Q8H PRN ORAL For Cough 12/29/18 14:30 01/23/19 14:29 12/29/18 14:23 Tamsulosin HCl (Flomax) 0.4 mg DAILY ORAL 12/30/18 09:00 01/23/19 08:59 Trazodone HCl (Desyrel) 100 mg BEDTIME ORAL 12/29/18 21:00 01/23/19 20:59 12/29/18 20:52 Vancomycin HCl (Vanco rx to dose) 1 ea DAILY PRN MISC Per rx protocol 12/29/18 14:00 01/28/19 13:59 Bertin Rothman M.D. Dec 29, 2018 22:36
[2018-12-30] VITALS: BP 125/61
[2018-12-30 04:30] VITALS: BP 129/72
[2018-12-30] MEDS: NovoLOG Insulin Flexpen SUBQ SCH ×4 (06:49→20:13)
[2018-12-30 07:49] VITALS: BP 106/64
--- NOTE | 2018-12-30 07:50 | NUR ---
NURSE NOTES: Report received from o RN, rounds made. Patient resting in semi-fowlers position in bed. No distress on RA. Left clavicle dressing CDI. FC patent, draining to gravity, y/cl urine. LFA heplock intact. Patient with non-productive cough, will medicate as ordered. Denies pain. Appetite good, no s/s of hypo/hyperglycemia. Call light in reach, bed in lowest position, will continue to monitor.
--- NOTE | 2018-12-30 07:50 | NUR ---
HAND-OFF: Report given to TAYLOR Nolasco. Pt does not show cough after medication. Will continue to monitor.
[2018-12-30 08:19] LABS: ANION GAP 8 mmol/L (5-15); BLOOD UREA NITROGEN 25 mg/dL (7-18); CALCIUM 8.7 MG/DL (8.5-10.1); CARBON DIOXIDE 28 MMOL/L (21-32); CHLORIDE 102 MMOL/L (98-107); CREATININE 2.8 MG/DL (0.55-1.30); POTASSIUM 3.5 MMOL/L (3.5-5.1); SODIUM 138 MMOL/L (136-145)
[2018-12-30] MEDS ORDERED: Metoprolol Succinate XL 50mg tab ORAL SCH (09:00)
[2018-12-30] MEDS: Lisinopril 20mg tab ORAL SCH (09:00)
--- NOTE | 2018-12-30 09:11 | Nephrology Progress Note ---
Assessment/Plan Status: stable Assessment/Plan: A/P 1) ESRD- HD MWF. - will hold HD until Monday - permacath removed. 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 No SOB or CP Objective Last 24 Hour Vital Signs Date Time Temp Pulse Resp B/P (MAP) Pulse Ox O2 Delivery O2 Flow Rate FiO2 12/30/18 07:24 68 18 97 Room Air 21 12/30/18 07:24 97 Room Air 21 12/30/18 04:30 97.6 65 18 129/72 (91) 97 12/30/18 00:00 98.3 61 18 125/61 (82) 96 12/29/18 21:00 Room Air 12/29/18 20:50 97 Room Air 21 12/29/18 20:50 78 20 97 Room Air 21 12/29/18 20:00 97.8 66 17 125/63 (83) 97 12/29/18 16:30 Nasal Cannula 2.0 12/29/18 16:26 98.2 64 20 112/58 (76) 96 12/29/18 14:13 98.4 71 18 114/58 (76) 98 12/29/18 12:00 98.0 64 18 138/66 (90) 98 12/29/18 12:00 65 Intake and Output 12/29/18 12/30/18 18:59 06:59 Intake Total 592 ml 500 ml Output Total 425 ml 1600 ml Balance 167 ml -1100 ml Intake Oral 592 ml 500 ml Output Urine Total 425 ml 1600 ml # Bowel Movements 2 Laboratory Tests 12/30/18 06:19: Sodium Level 138, Potassium Level 3.5, Chloride Level 102, Carbon Dioxide Level 28, Anion Gap 8, Blood Urea Nitrogen 25H, Creatinine 2.8H, Estimat Glomerular Filtration Rate 22.7, Glucose Level 159H, Calcium Level 8.7 Height (Feet): 5 Height (Inches): 6.00 Weight (Pounds): 145 General Appearance: no apparent distress, alert EENT: normal ENT inspection Neck: normal alignment, supple Cardiovascular: normal rate, regular rhythm Respiratory/Chest: lungs clear, normal breath sounds Abdomen: non tender, soft Edema: no edema noted Arm (L), no edema noted Arm (R), no edema noted Leg (L), no edema noted Leg (R), no edema noted Pedal (L), no edema noted Pedal (R), no edema noted Generalized Mendez Roman MD Dec 30, 2018 09:11
[2018-12-30] MEDS: Flonase Nasal Inhaler 16gm NASAL SCH (10:06)
[2018-12-30] MEDS: Bethanechol 25mg Tab ORAL SCH ×3 (10:10→17:21)
[2018-12-30] MEDS: Docusate 250mg cap ORAL SCH ×2 (10:10→17:22)
[2018-12-30] MEDS: ARIPiprazole 10mg tab ORAL SCH (10:11)
[2018-12-30] MEDS: Tamsulosin 0.4mg cap ORAL SCH (10:11)
[2018-12-30] MEDS: Bisacodyl EC 5mg tab ORAL SCH (10:11)
--- NOTE | 2018-12-30 10:41 | NUR ---
NURSE NOTES: Called Pharmacy regarding new Flonase label needed due to patient transferred from [facility] 219-1 yesterday, when administered this AM unable to scan, was verified with 2 RNs (Sandhya SY). Flonase in [facility] med room.
[2018-12-30] MEDS: Promethazine/DM 6.25mg/5ml ORAL PRN (10:59)
[2018-12-30 12:00] VITALS: BP 118/67
--- NOTE | 2018-12-30 13:10 | Infectious Diseases Prog Note ---
Assessment/Plan Problems: (1) Sepsis Assessment & Plan: with staph epidermidis source suspect HD CATHETER INFECTION , S/P removal , may place a new catheter in 48 hours . continue vancomycin DOSED AFTER EACH HD for two weeks course of treatment , transthoracic echo ruled out vegetations . repeated blood culture on 12/25 is negative x2 which confirm clearance. EOT 01/10/19 (2) HCAP (healthcare-associated pneumonia) Assessment & Plan: with cough, SOB, and high fever ALREADY ON vancomycin treatment for sepsis and cefepime for UTI . aspiration precaution (3) Catheter-associated urinary tract infection Assessment & Plan: due to klebsiella oxytoca , continue cefepime for 10 days , S/P walsh catheter change (4) Fever Assessment & Plan: due to the above, resolved , continue antibiotics and tylenol as needed (5) ESRD (end stage renal disease) on dialysis Assessment & Plan: has left perm A cath , with clean site and no sign of local infection , but being bacteremic source most likely is his HD catheter , recommend to remove and place a new one in 48 hours , continue HD as per renal Subjective Constitutional: Reports: no symptoms HEENT: Reports: no symptoms Respiratory: Reports: no symptoms Breasts: Reports: no symptoms Cardiovascular: Reports: no symptoms Gastrointestinal/Abdominal: Reports: no symptoms Genitourinary: Reports: no symptoms Neurologic: Reports: no symptoms Psychiatric: Reports: no symptoms Skin: Reports: no symptoms Endocrine: Reports: no symptoms Hematologic: Reports: no symptoms Musculoskeletal: Reports: no symptoms Allergies: Coded Allergies: No Known Allergies (Unverified , 12/26/12) Objective Vital Signs Last 24 Hour Vital Signs Date Time Temp Pulse Resp B/P (MAP) Pulse Ox O2 Delivery O2 Flow Rate FiO2 12/30/18 12:00 98.3 67 16 118/67 (84) 98 12/30/18 09:00 85 106/64 12/30/18 09:00 106/64 12/30/18 07:49 96.8 85 18 106/64 (78) 96 12/30/18 07:24 68 18 97 Room Air 21 12/30/18 07:24 97 Room Air 21 12/30/18 04:30 97.6 65 18 129/72 (91) 97 12/30/18 00:00 98.3 61 18 125/61 (82) 96 12/29/18 21:00 Room Air 12/29/18 20:50 97 Room Air 21 12/29/18 20:50 78 20 97 Room Air 21 12/29/18 20:00 97.8 66 17 125/63 (83) 97 12/29/18 16:30 Nasal Cannula 2.0 12/29/18 16:26 98.2 64 20 112/58 (76) 96 12/29/18 14:13 98.4 71 18 114/58 (76) 98 Height (Feet): 5 Height (Inches): 6.00 Weight (Pounds): 145 General Appearance: WD/WN, no acute distress HEENT: normocephalic, atraumatic, anicteric, mucous membranes moist, PERRL, EOMI, pharynx normal, supple, no JVD Respiratory/Chest: chest wall non-tender, lungs clear, normal breath sounds, no respiratory distress, no accessory muscle use, decreased breath sounds Cardiovascular: normal peripheral pulses, normal rate, regular rhythm, no gallop/murmur, no JVD Abdomen: normal bowel sounds, soft, non tender, no organomegaly, non distended , no mass, no scars Genitourinary: normal external genitalia Extremities: no cyanosis, no clubbing Skin: no rash, no lesions, no ulcers 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: admissions rn II-XII grossly normal, alert, responsive Lymphatic: no neck adenopathy, no groin adenopathy Musculoskeletal: normal muscle bulk, no effusion Microbiology Date/Time Source Procedure Growth Status 12/27/18 14:15 Chest Catheter Tip Culture - Final Staphylococcus Sp Coag Neg Complete Laboratory Tests Test 12/30/18 06:19 Sodium Level 138 MMOL/L (136-145) Potassium Level 3.5 MMOL/L (3.5-5.1) Chloride Level 102 MMOL/L (98-107) Carbon Dioxide Level 28 MMOL/L (21-32) Anion Gap 8 mmol/L (5-15) Blood Urea Nitrogen 25 mg/dL (7-18) H Creatinine 2.8 MG/DL (0.55-1.30) H Estimat Glomerular Filtration Rate 22.7 mL/min (>60) Glucose Level 159 MG/DL (74-106) H Calcium Level 8.7 MG/DL (8.5-10.1) Current Medications Medications (Trade) Dose Ordered Sig/Kevin Route PRN Reason Start Time Stop Time Status Last Admin Dose Admin Acetaminophen (Tylenol) 650 mg Q6H PRN ORAL Mild Pain/Temp > 100.5 12/29/18 14:00 01/23/19 13:59 12/29/18 22:39 Aripiprazole (Abilify) 10 mg DAILY ORAL 12/30/18 09:00 01/23/19 08:59 12/30/18 10:11 Atorvastatin Calcium (Lipitor) 80 mg BEDTIME ORAL 12/29/18 21:00 01/23/19 20:59 12/29/18 20:52 Bethanechol Chloride (Urecholine) 25 mg THREE TIMES A DAY ORAL 12/29/18 18:00 01/23/19 08:59 12/30/18 12:39 Bisacodyl (Dulcolax) 10 mg DAILY ORAL 12/30/18 09:00 01/23/19 08:59 12/30/18 10:11 Cefepime HCl 1 gm/ Dextrose 55 ml @ 110 mls/hr Q24H IVPB 12/29/18 17:00 01/08/19 16:59 12/29/18 17:22 Clopidogrel Bisulfate (Plavix) 75 mg DAILY ORAL 12/30/18 09:00 01/23/19 08:59 12/30/18 10:10 Dextrose (Dextrose 50%) 25 ml Q30M PRN IV Hypoglycemia 12/29/18 14:00 01/23/19 05:29 Dextrose (Dextrose 50%) 50 ml Q30M PRN IV Hypoglycemia 12/29/18 14:00 01/23/19 05:29 Diphenhydramine HCl (Benadryl) 50 mg Q6H PRN ORAL Itching 12/29/18 14:00 01/23/19 13:59 Docusate Sodium (Colace) 250 mg TWICE A DAY ORAL 12/29/18 18:00 01/23/19 08:59 12/30/18 10:10 Epoetin Kimani (Epoetin Kimani(ESRD on dialysis)) 2,000 unit -MON SUBQ 12/31/18 21:00 01/25/19 20:59 Epoetin Kimani (Epoetin Kimani(ESRD on dialysis)) 3,000 unit -MON SUBQ 12/31/18 21:00 01/25/19 20:59 Famotidine (Pepcid) 20 mg BID ORAL 12/29/18 18:00 01/23/19 08:59 12/30/18 10:11 Fluticasone Propionate (Flonase) 1 spray DAILY NASAL 12/30/18 09:00 01/23/19 08:59 12/30/18 10:06 Insulin Aspart (NovoLOG) BEFORE MEALS AND HS SUBQ 12/29/18 16:30 01/23/19 06:29 12/30/18 11:48 Lisinopril (Prinivil) 20 mg DAILY ORAL 12/30/18 09:00 01/23/19 08:59 Loratadine (Claritin 10mg) 10 mg DAILY ORAL 12/30/18 09:00 01/04/19 09:29 12/30/18 10:10 Metoprolol Succinate (Toprol XL) 50 mg DAILY ORAL 12/31/18 09:00 01/23/19 08:59 Ondansetron HCl (Zofran) 4 mg Q4H PRN IVP Nausea & Vomiting 12/29/18 14:00 01/23/19 13:59 Promethazine HCl/ Dextromethorphan (Phenergan DM) 6.25 mg Q8H PRN ORAL For Cough 12/29/18 14:30 01/23/19 14:29 12/30/18 10:59 Tamsulosin HCl (Flomax) 0.4 mg DAILY ORAL 12/30/18 09:00 01/23/19 08:59 12/30/18 10:11 Trazodone HCl (Desyrel) 100 mg BEDTIME ORAL 12/29/18 21:00 01/23/19 20:59 12/29/18 20:52 Vancomycin HCl (Vanco rx to dose) 1 ea DAILY PRN MISC Per rx protocol 12/29/18 14:00 01/28/19 13:59 Bertin Rothman M.D. Dec 30, 2018 13:10
--- NOTE | 2018-12-30 13:18 | Cardiac Electrophysiology PN ---
Assessment/Plan Assessment/Plan 1. Shortness of breath due to underlying pneumonia and CHF His BNP were also elevated at 2769. Echocardiogram EF 65%. 2. Paroxysmal atrial fibrillation, in sinus rhythm. Had brief atrial fib that self terminated. On Toprol-XL 50 mg daily. 3. Congestive heart failure. On Toprol 50,lisinopril 40 daily and hemodialysis. 4. Coronary artery disease with history of prior stent. Denies any chest pain. On Plavix, metoprolol and Lipitor 80 mg daily. 5. Sepsis. On broad-spectrum IV antibiotics. Dialysis catheter removed. Awaiting new catheter placement and HD tomorrow RICKY RN Subjective Subjective No CP or SOB. Awaiting new HD line tomorrow Objective Last 24 Hour Vital Signs Date Time Temp Pulse Resp B/P (MAP) Pulse Ox O2 Delivery O2 Flow Rate FiO2 12/30/18 12:00 98.3 67 16 118/67 (84) 98 12/30/18 09:00 85 106/64 12/30/18 09:00 106/64 12/30/18 07:49 96.8 85 18 106/64 (78) 96 12/30/18 07:24 68 18 97 Room Air 21 12/30/18 07:24 97 Room Air 21 12/30/18 04:30 97.6 65 18 129/72 (91) 97 12/30/18 00:00 98.3 61 18 125/61 (82) 96 12/29/18 21:00 Room Air 12/29/18 20:50 97 Room Air 21 12/29/18 20:50 78 20 97 Room Air 21 12/29/18 20:00 97.8 66 17 125/63 (83) 97 12/29/18 16:30 Nasal Cannula 2.0 12/29/18 16:26 98.2 64 20 112/58 (76) 96 12/29/18 14:13 98.4 71 18 114/58 (76) 98 Intake and Output 12/29/18 12/30/18 19:00 07:00 Intake Total 592 ml 500 ml Output Total 425 ml 1600 ml Balance 167 ml -1100 ml Intake Oral 592 ml 500 ml Output Urine Total 425 ml 1600 ml # Bowel Movements 2 Laboratory Tests Test 12/30/18 06:19 Sodium Level 138 MMOL/L (136-145) Potassium Level 3.5 MMOL/L (3.5-5.1) Chloride Level 102 MMOL/L (98-107) Carbon Dioxide Level 28 MMOL/L (21-32) Anion Gap 8 mmol/L (5-15) Blood Urea Nitrogen 25 mg/dL (7-18) H Creatinine 2.8 MG/DL (0.55-1.30) H Estimat Glomerular Filtration Rate 22.7 mL/min (>60) Glucose Level 159 MG/DL (74-106) H Calcium Level 8.7 MG/DL (8.5-10.1) Microbiology Date/Time Source Procedure Growth Status 12/27/18 14:15 Chest Catheter Tip Culture - Final Staphylococcus Sp Coag Neg Complete Objective HEAD AND NECK: No JVD. LUNGS: Coarse rhonchi. CARDIOVASCULAR: Regular S1 and S2 with no gallop or murmur. ABDOMEN: Soft and nontender. EXTREMITIES: No pitting edema. Milan Fields MD Dec 30, 2018 13:18
[2018-12-30] MEDS ORDERED: NS 275ml ONE (13:29)
[2018-12-30] MEDS ORDERED: Tubing IV Secondary IV ONE (13:29)
--- NOTE | 2018-12-30 14:01 | General Progress Note ---
Assessment/Plan Status: stable Assessment/Plan: 1. pneumonia - improved. Cont cefepime and vanco. ID following. 2. CHF - resolved. On HD. 3. H/O A Fib with RVR, currently on NSR. cardiology following. 4. UTI - improved. cont cefepime for total of 10 days per ID. walsh changed. 5. Sepsis - improved. cont IV abx. repeat blood cultures neg x 48 hrs. ID following. 6. CRF on HD - renal for HD. s/p Perm A cath removal. Plan for new Perm A cath on monday per Renal. D/C planning to [facility] on monday after HD. 7. DM II - SSI. 8. BPH - cont home meds. 9. HTN - cont home meds. 10. Chronic urinary Retention due to neurogenic bladder. 11. HLD - cont home meds. 12. CAD - stable. 13. Asthma - cont home meds. 14. Mood disorder - cont home meds. Subjective Date patient seen: Dec 30, 2018 Time patient seen: 14:00 Constitutional: Reports: no symptoms HEENT: Reports: no symptoms Cardiovascular: Reports: no symptoms Respiratory: Reports: no symptoms Gastrointestinal/Abdominal: Reports: no symptoms Genitourinary: Reports: no symptoms 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: Reports: no symptoms Endocrine: Reports: no symptoms Hematologic/Lymphatic: Reports: no symptoms Allergies: Coded Allergies: No Known Allergies (Unverified , 12/26/12) Subjective His coughing has improved. He is afebrile. no sob or chest pain. no nausea or vomiting. Objective Last 24 Hour Vital Signs Date Time Temp Pulse Resp B/P (MAP) Pulse Ox O2 Delivery O2 Flow Rate FiO2 12/30/18 12:00 98.3 67 16 118/67 (84) 98 12/30/18 09:00 85 106/64 12/30/18 09:00 106/64 12/30/18 07:49 96.8 85 18 106/64 (78) 96 12/30/18 07:24 68 18 97 Room Air 21 12/30/18 07:24 97 Room Air 21 12/30/18 04:30 97.6 65 18 129/72 (91) 97 12/30/18 00:00 98.3 61 18 125/61 (82) 96 12/29/18 21:00 Room Air 12/29/18 20:50 97 Room Air 21 12/29/18 20:50 78 20 97 Room Air 21 12/29/18 20:00 97.8 66 17 125/63 (83) 97 12/29/18 16:30 Nasal Cannula 2.0 12/29/18 16:26 98.2 64 20 112/58 (76) 96 12/29/18 14:13 98.4 71 18 114/58 (76) 98 Intake and Output 12/29/18 12/30/18 19:00 07:00 Intake Total 592 ml 500 ml Output Total 425 ml 1600 ml Balance 167 ml -1100 ml Intake Oral 592 ml 500 ml Output Urine Total 425 ml 1600 ml # Bowel Movements 2 Laboratory Tests 12/30/18 06:19: Sodium Level 138, Potassium Level 3.5, Chloride Level 102, Carbon Dioxide Level 28, Anion Gap 8, Blood Urea Nitrogen 25H, Creatinine 2.8H, Estimat Glomerular Filtration Rate 22.7, Glucose Level 159H, Calcium Level 8.7 Height (Feet): 5 Height (Inches): 6.00 Weight (Pounds): 145 General Appearance: no apparent distress, alert Neck: non-tender, supple Cardiovascular: normal rate, regular rhythm Respiratory/Chest: lungs clear, normal breath sounds Abdomen: normal bowel sounds, non tender, soft Extremities: normal range of motion, non-tender Edema: no edema noted Arm (L), no edema noted Arm (R), no edema noted Leg (L), no edema noted Leg (R), no edema noted Pedal (L), no edema noted Pedal (R), no edema noted Generalized Neurologic: alert, oriented x 3, responsive Skin: warm/dry Lymphatic: normal anterior cervical (L), normal anterior cervical (R), normal posterior cervical (L), normal posterior cervical (R), normal submandibular (L) , normal submandibular (R), normal supraclavicular (L), normal supraclavicular ( R), normal axillary (L), normal axillary (R), normal inguinal (L), normal inguinal (R), normal other Gem Best MD Dec 30, 2018 14:01
[2018-12-30 16:17] VITALS: BP 110/62
[2018-12-30] MEDS: Cefepime HCl 1 GM in D5W 55 ML IVPB SCH (17:15)
--- NOTE | 2018-12-30 17:30 | NUR ---
NURSE NOTES: Patient ambulated in halls with RN, up to chair, complete bath done with patient assistance. RN noted right medial great toe with old wound scab, intact. Foot care provided, skin intact. Will continue to monitor.
--- NOTE | 2018-12-30 19:30 | NUR ---
HAND-OFF: Report given to Dolores VAZQUEZ.
--- NOTE | 2018-12-30 19:56 | Surgery Progress Note ---
Surgery Progress Note Subjective Procedure Performed removal of right chest wall tunneled HD catheter Additional Comments doing well comfortable no complaints labs noted plan for new HD cath placement tomorrow Objective Last 24 Hour Vital Signs Date Time Temp Pulse Resp B/P (MAP) Pulse Ox O2 Delivery O2 Flow Rate FiO2 12/30/18 16:17 97.0 84 20 110/62 (78) 96 12/30/18 12:00 98.3 67 16 118/67 (84) 98 12/30/18 09:00 85 106/64 12/30/18 09:00 106/64 12/30/18 09:00 Room Air 12/30/18 07:49 96.8 85 18 106/64 (78) 96 12/30/18 07:24 68 18 97 Room Air 21 12/30/18 07:24 97 Room Air 21 12/30/18 04:30 97.6 65 18 129/72 (91) 97 12/30/18 00:00 98.3 61 18 125/61 (82) 96 12/29/18 21:00 Room Air 12/29/18 20:50 97 Room Air 21 12/29/18 20:50 78 20 97 Room Air 21 12/29/18 20:00 97.8 66 17 125/63 (83) 97 I&O Intake and Output 12/29/18 12/30/18 19:00 07:00 Intake Total 592 ml 500 ml Output Total 425 ml 1600 ml Balance 167 ml -1100 ml Intake Oral 592 ml 500 ml Output Urine Total 425 ml 1600 ml # Bowel Movements 2 Dressing: dry Wound: clean Drains: none Cardiovascular: RSR Respiratory: clear Abdomen: soft, present bowel sounds, non-distended Extremities: no cyanosis Laboratory Tests Test 12/30/18 06:19 Sodium Level 138 MMOL/L (136-145) Potassium Level 3.5 MMOL/L (3.5-5.1) Chloride Level 102 MMOL/L (98-107) Carbon Dioxide Level 28 MMOL/L (21-32) Anion Gap 8 mmol/L (5-15) Blood Urea Nitrogen 25 mg/dL (7-18) H Creatinine 2.8 MG/DL (0.55-1.30) H Estimat Glomerular Filtration Rate 22.7 mL/min (>60) Glucose Level 159 MG/DL (74-106) H Calcium Level 8.7 MG/DL (8.5-10.1) Plan Problems: (1) Sepsis Assessment & Plan: 68-year-old male presented with fevers and sepsis. Patient bacteremic Likely etiology is his tunneled left temporary hemodialysis catheter Recommend removal See report We will attempt to keep patient line free as long as possible then placed new temporary even as catheter for him plan for new line monday Antibiotics as per ID Thank you for allowing me to participate in patient's care (2) Fever (3) Catheter-associated urinary tract infection (4) Influenza-like symptoms (5) ESRD (end stage renal disease) on dialysis (6) HCAP (healthcare-associated pneumonia) (7) Pruritic dermatitis (8) Dyspnea (9) Eye problem (10) Eye problem Trevon Baptiste Dec 30, 2018 19:56
[2018-12-30 20:00] VITALS: BP 135/73
--- NOTE | 2018-12-30 20:00 | NUR ---
NURSE NOTES: Received patient awake in bed, no s/s of acute distress, no c/o pain at this time. Surgical dressing dry and intact, changed by AM nurse. Fall and safety precautions taken. IV access asymptomatic, dressing dry and intact. Addendum: 12/30/18 at 2027 by Dolores Shannon RN WRONG PATIENT, PLEASE DISREGARD NOTE.
[2018-12-30] MEDS: Atorvastatin 80mg tab ORAL SCH (20:13)
[2018-12-30] MEDS: TraZODone 100mg tab ORAL SCH (20:14)
--- NOTE | 2018-12-30 20:29 | NUR ---
NURSE NOTES: RECEIVED PATIENT SITTING IN CHAIR IN ROOM, ASSISTED TO BATHROOM WITH AM NURSE. LARRY CATHETER NOTED, DRAINING YELLOW AND CLEAR URINE. IV ACCESS ASYMPTOMATIC, DRESSING DRY AND INTACT. FALL AND SAFETY PRECAUTIONS TAKEN, PATIENT WEARING NON SLIP SOCKS. WILL MONITOR BLOOD GLUCOSE CLOSELY.
[2018-12-31] VITALS: BP 107/70
[2018-12-31 04:00] VITALS: BP 115/67
[2018-12-31] MEDS: NovoLOG Insulin Flexpen SUBQ SCH ×3 (06:30→17:40)
[2018-12-31 06:43] LABS: BASOPHILS % (AUTO) 1.3 % (0.0-2.0); EOSINOPHILS % (AUTO) 3.4 % (0.0-3.0); HEMATOCRIT 29.7 % (42.0-52.0); HEMOGLOBIN 9.9 G/DL (14.2-18.0); LYMPHOCYTES % (AUTO) 25.9 % (20.0-45.0); MEAN CORPUSCULAR VOLUME 95 FL (80-99); MONOCYTES % (AUTO) 8.6 % (1.0-10.0); NEUTROPHILS % (AUTO) 60.8 % (45.0-75.0); PLATELET COUNT 274 K/UL (150-450); RED BLOOD COUNT 3.12 M/UL (4.70-6.10); RED CELL DISTRIBUTION WIDTH 12.1 % (11.6-14.8); WHITE BLOOD COUNT 6.7 K/UL (4.8-10.8)
[2018-12-31 07:07] LABS: ANION GAP 10 mmol/L (5-15); BLOOD UREA NITROGEN 30 mg/dL (7-18); CALCIUM 8.7 MG/DL (8.5-10.1); CARBON DIOXIDE 27 MMOL/L (21-32); CHLORIDE 100 MMOL/L (98-107); CREATININE 2.6 MG/DL (0.55-1.30); POTASSIUM 3.7 MMOL/L (3.5-5.1); SODIUM 136 MMOL/L (136-145)
--- NOTE | 2018-12-31 07:45 | NUR ---
HAND-OFF: Report given to TAYLOR Stokes.
--- NOTE | 2018-12-31 07:47 | Nephrology Progress Note ---
Assessment/Plan Status: stable Assessment/Plan: A/P 1) CKD 4 - HD held since Monday and Cr continues to improve, down to 2.6 - DC dialysis. 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 - OK for DC from renal point 2) Sepsis- CAP and UTI - Abx per ID mgmt, removed permacath and no need to replace 3) Anemia of CKD- EPO with HD with Hgb goal >10 4) HTN- stable 5) DM- per PCP mgmt Subjective Date patient seen: Dec 31, 2018 Time patient seen: 07:45 ROS Limited/Unobtainable: No Allergies: Coded Allergies: No Known Allergies (Unverified , 12/26/12) Subjective Patient eating bkfst, no SOB and good UOP Objective Last 24 Hour Vital Signs Date Time Temp Pulse Resp B/P (MAP) Pulse Ox O2 Delivery O2 Flow Rate FiO2 12/31/18 04:00 98.3 66 18 115/67 (83) 96 12/31/18 00:00 97.7 72 19 107/70 (82) 96 12/30/18 22:06 Room Air 12/30/18 20:00 97.1 67 18 135/73 (93) 96 12/30/18 16:17 97.0 84 20 110/62 (78) 96 12/30/18 12:00 98.3 67 16 118/67 (84) 98 12/30/18 09:00 85 106/64 12/30/18 09:00 106/64 12/30/18 09:00 Room Air 12/30/18 07:49 96.8 85 18 106/64 (78) 96 Intake and Output 12/30/18 12/31/18 19:00 07:00 Intake Total 1184 ml 300 ml Output Total 725 ml 350 ml Balance 459 ml -50 ml Intake Oral 1184 ml 300 ml Output Urine Total 725 ml 350 ml # Bowel Movements 1 Laboratory Tests 12/31/18 06:18: White Blood Count 6.7, Red Blood Count 3.12L, Hemoglobin 9.9L, Hematocrit 29.7L , Mean Corpuscular Volume 95, Mean Corpuscular Hemoglobin 31.6H, Mean Corpuscular Hemoglobin Concent 33.2, Red Cell Distribution Width 12.1, Platelet Count 274, Mean Platelet Volume 6.1L, Neutrophils (%) (Auto) 60.8, Lymphocytes ( %) (Auto) 25.9, Monocytes (%) (Auto) 8.6, Eosinophils (%) (Auto) 3.4H, Basophils (%) (Auto) 1.3, Sodium Level 136, Potassium Level 3.7, Chloride Level 100, Carbon Dioxide Level 27, Anion Gap 10, Blood Urea Nitrogen 30H, Creatinine 2.6H, Estimat Glomerular Filtration Rate 24.7, Glucose Level 154H, Calcium Level 8.7 Height (Feet): 5 Height (Inches): 6.00 Weight (Pounds): 145 General Appearance: no apparent distress, alert EENT: normal ENT inspection Neck: normal alignment, supple Cardiovascular: normal rate, regular rhythm Respiratory/Chest: lungs clear, normal breath sounds Edema: no edema noted Arm (L), no edema noted Arm (R), no edema noted Leg (L), no edema noted Leg (R), no edema noted Pedal (L), no edema noted Pedal (R), no edema noted Generalized Mendez Roman MD Dec 31, 2018 07:47
--- NOTE | 2018-12-31 07:50 | NUR ---
NURSE NOTES: Patient sitting in chair eating breakfast. No complain of pain or distress at this time. Dumont catheter patent and draining well. IV dressing intact and dry. Bed lowest position. Call light within reach. Will continue to monitor.
[2018-12-31 08:00] VITALS: BP 134/70
[2018-12-31] MEDS ORDERED: BISACODYL5 MG ORAL (08:51)
[2018-12-31] MEDS ORDERED: PHENERGAN6.25 MG/5 ORAL (08:51)
[2018-12-31] MEDS ORDERED: LORATADINE10 M2 ORAL (08:51)
[2018-12-31] MEDS ORDERED: NOVOLOG100 UNITS1 SUBQ (08:51)
[2018-12-31] MEDS ORDERED: FLONASE1 SPRAYS NASAL (08:51)
[2018-12-31] MEDS ORDERED: ZOFRAN 4 MG4 MG/2 ML IVP (08:51)
[2018-12-31] MEDS ORDERED: PRINIVIL20 MG ORAL (08:51)
[2018-12-31] MEDS ORDERED: Metoprolol Succinate XL 50mg tab ORAL SCH (09:00)
[2018-12-31] MEDS: Flonase Nasal Inhaler 16gm NASAL SCH (09:00)
[2018-12-31] MEDS: ARIPiprazole 10mg tab ORAL SCH (09:45)
[2018-12-31] MEDS: Bethanechol 25mg Tab ORAL SCH ×3 (09:45→17:36)
[2018-12-31] MEDS: Bisacodyl EC 5mg tab ORAL SCH (09:45)
[2018-12-31] MEDS: Docusate 250mg cap ORAL SCH ×2 (09:45→17:36)
[2018-12-31] MEDS: Tamsulosin 0.4mg cap ORAL SCH (09:46)
[2018-12-31] MEDS: Lisinopril 20mg tab ORAL SCH (09:49)
--- NOTE | 2018-12-31 09:56 | NUR ---
DISCHARGE PLANNING DISCHARGE ORDER NOTED FAXED CLINICALS TO [facility] T: [phone] F: [phone] *AWAIT CALL BACK WITH ROOM ASSIGNMENT CATHETER TO BE REPLACED AND DIALYSIS TO BE COMPLETED PRIOR TO DISCHARGE
[2018-12-31 12:00] VITALS: BP 135/69
--- NOTE | 2018-12-31 13:20 | Infectious Diseases Prog Note ---
Assessment/Plan Problems: (1) Sepsis Assessment & Plan: with staph epidermidis source suspect HD CATHETER INFECTION , S/P removal , may place a new catheter in 48 hours if needed . continue vancomycin DOSED AFTER EACH HD for two weeks course of treatment , transthoracic echo ruled out vegetations . repeated blood culture on 12/25 is negative x2 which confirm clearance. EOT 01/10/19 (2) HCAP (healthcare-associated pneumonia) Assessment & Plan: with cough, SOB, and high fever ALREADY ON vancomycin treatment for sepsis and cefepime for UTI . aspiration precaution (3) Catheter-associated urinary tract infection Assessment & Plan: due to klebsiella oxytoca , continue cefepime for 10 days , S/P walsh catheter change (4) Fever Assessment & Plan: due to the above, resolved , continue antibiotics and tylenol as needed (5) ESRD (end stage renal disease) on dialysis Assessment & Plan: has left perm A cath , with clean site and no sign of local infection , but being bacteremic source most likely is his HD catheter which grew coag negative staph , S/P removal, off HD as per renal Subjective Constitutional: Reports: no symptoms HEENT: Reports: no symptoms Respiratory: Reports: no symptoms Breasts: Reports: no symptoms Cardiovascular: Reports: no symptoms Gastrointestinal/Abdominal: Reports: no symptoms Genitourinary: Reports: no symptoms Neurologic: Reports: no symptoms Psychiatric: Reports: no symptoms Skin: Reports: no symptoms Endocrine: Reports: no symptoms Hematologic: Reports: no symptoms Musculoskeletal: Reports: no symptoms Allergies: Coded Allergies: No Known Allergies (Unverified , 12/26/12) Objective Vital Signs Last 24 Hour Vital Signs Date Time Temp Pulse Resp B/P (MAP) Pulse Ox O2 Delivery O2 Flow Rate FiO2 12/31/18 09:49 78 134/70 12/31/18 09:49 134/70 12/31/18 09:00 Room Air 12/31/18 08:00 97.9 78 20 134/70 (91) 100 12/31/18 04:00 98.3 66 18 115/67 (83) 96 12/31/18 00:00 97.7 72 19 107/70 (82) 96 12/30/18 22:06 Room Air 12/30/18 20:00 97.1 67 18 135/73 (93) 96 12/30/18 16:17 97.0 84 20 110/62 (78) 96 Height (Feet): 5 Height (Inches): 6.00 Weight (Pounds): 145 General Appearance: WD/WN, no acute distress HEENT: normocephalic, atraumatic, anicteric, mucous membranes moist, PERRL Respiratory/Chest: chest wall non-tender, lungs clear, normal breath sounds, no respiratory distress, no accessory muscle use Cardiovascular: normal peripheral pulses, normal rate, regular rhythm, no gallop/murmur, no JVD Abdomen: normal bowel sounds, soft, non tender, no organomegaly, non distended , no mass, no scars Genitourinary: normal external genitalia Extremities: no cyanosis, no clubbing Skin: no rash, no lesions, no ulcers 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: 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, abnormal gait, alert, oriented x 3 Lymphatic: no neck adenopathy, no groin adenopathy Musculoskeletal: normal muscle bulk, no effusion Laboratory Tests Test 12/31/18 06:18 White Blood Count 6.7 K/UL (4.8-10.8) Red Blood Count 3.12 M/UL (4.70-6.10) L Hemoglobin 9.9 G/DL (14.2-18.0) L Hematocrit 29.7 % (42.0-52.0) L Mean Corpuscular Volume 95 FL (80-99) Mean Corpuscular Hemoglobin 31.6 PG (27.0-31.0) H Mean Corpuscular Hemoglobin Concent 33.2 G/DL (32.0-36.0) Red Cell Distribution Width 12.1 % (11.6-14.8) Platelet Count 274 K/UL (150-450) Mean Platelet Volume 6.1 FL (6.5-10.1) L Neutrophils (%) (Auto) 60.8 % (45.0-75.0) Lymphocytes (%) (Auto) 25.9 % (20.0-45.0) Monocytes (%) (Auto) 8.6 % (1.0-10.0) Eosinophils (%) (Auto) 3.4 % (0.0-3.0) H Basophils (%) (Auto) 1.3 % (0.0-2.0) Sodium Level 136 MMOL/L (136-145) Potassium Level 3.7 MMOL/L (3.5-5.1) Chloride Level 100 MMOL/L (98-107) Carbon Dioxide Level 27 MMOL/L (21-32) Anion Gap 10 mmol/L (5-15) Blood Urea Nitrogen 30 mg/dL (7-18) H Creatinine 2.6 MG/DL (0.55-1.30) H Estimat Glomerular Filtration Rate 24.7 mL/min (>60) Glucose Level 154 MG/DL (74-106) H Calcium Level 8.7 MG/DL (8.5-10.1) Current Medications Medications (Trade) Dose Ordered Sig/Kevin Route PRN Reason Start Time Stop Time Status Last Admin Dose Admin Acetaminophen (Tylenol) 650 mg Q6H PRN ORAL Mild Pain/Temp > 100.5 12/29/18 14:00 01/23/19 13:59 12/29/18 22:39 Aripiprazole (Abilify) 10 mg DAILY ORAL 12/30/18 09:00 01/23/19 08:59 12/31/18 09:45 Atorvastatin Calcium (Lipitor) 80 mg BEDTIME ORAL 12/29/18 21:00 01/23/19 20:59 12/30/18 20:13 Bethanechol Chloride (Urecholine) 25 mg THREE TIMES A DAY ORAL 12/29/18 18:00 01/23/19 08:59 12/31/18 12:52 Bisacodyl (Dulcolax) 10 mg DAILY ORAL 12/30/18 09:00 01/23/19 08:59 12/31/18 09:45 Cefepime HCl 1 gm/ Dextrose 55 ml @ 110 mls/hr Q24H IVPB 12/29/18 17:00 01/10/19 16:59 12/30/18 17:15 Clopidogrel Bisulfate (Plavix) 75 mg DAILY ORAL 12/30/18 09:00 01/23/19 08:59 12/31/18 09:46 Dextrose (Dextrose 50%) 25 ml Q30M PRN IV Hypoglycemia 12/29/18 14:00 01/23/19 05:29 Dextrose (Dextrose 50%) 50 ml Q30M PRN IV Hypoglycemia 12/29/18 14:00 01/23/19 05:29 Diphenhydramine HCl (Benadryl) 50 mg Q6H PRN ORAL Itching 12/29/18 14:00 01/23/19 13:59 Docusate Sodium (Colace) 250 mg TWICE A DAY ORAL 12/29/18 18:00 01/23/19 08:59 12/31/18 09:45 Epoetin Kimani (Epoetin Kimani(ESRD on dialysis)) 2,000 unit SUBQ 12/31/18 21:00 01/25/19 20:59 Epoetin Kimani (Epoetin Kimani(ESRD on dialysis)) 3,000 unit SUBQ 12/31/18 21:00 01/25/19 20:59 Famotidine (Pepcid) 20 mg BID ORAL 12/29/18 18:00 01/23/19 08:59 12/31/18 09:46 Fluticasone Propionate (Flonase) 1 spray DAILY NASAL 12/30/18 09:00 01/23/19 08:59 12/31/18 09:00 Insulin Aspart (NovoLOG) BEFORE MEALS AND HS SUBQ 12/29/18 16:30 01/23/19 06:29 12/31/18 12:55 Lisinopril (Prinivil) 20 mg DAILY ORAL 12/30/18 09:00 01/23/19 08:59 12/31/18 09:49 Loratadine (Claritin 10mg) 10 mg DAILY ORAL 12/30/18 09:00 01/04/19 09:29 12/31/18 09:45 Metoprolol Succinate (Toprol XL) 50 mg DAILY ORAL 12/31/18 09:00 01/23/19 08:59 12/31/18 09:49 Ondansetron HCl (Zofran) 4 mg Q4H PRN IVP Nausea & Vomiting 12/29/18 14:00 01/23/19 13:59 Promethazine HCl/ Dextromethorphan (Phenergan DM) 6.25 mg Q8H PRN ORAL For Cough 12/29/18 14:30 01/23/19 14:29 12/30/18 10:59 Tamsulosin HCl (Flomax) 0.4 mg DAILY ORAL 12/30/18 09:00 01/23/19 08:59 12/31/18 09:46 Trazodone HCl (Desyrel) 100 mg BEDTIME ORAL 12/29/18 21:00 01/23/19 20:59 12/30/18 20:14 Vancomycin HCl (Vanco rx to dose) 1 ea DAILY PRN MISC Per rx protocol 12/29/18 14:00 01/28/19 13:59 Bertin Rothman M.D. Dec 31, 2018 13:20
--- NOTE | 2018-12-31 13:38 | Surgery Progress Note ---
Surgery Progress Note Subjective Procedure Performed removal of right chest wall tunneled HD catheter Symptoms: improved Additional Comments renal function improving does not need HD currently wound c/d/i okay to d/c Objective Last 24 Hour Vital Signs Date Time Temp Pulse Resp B/P (MAP) Pulse Ox O2 Delivery O2 Flow Rate FiO2 12/31/18 09:49 78 134/70 12/31/18 09:49 134/70 12/31/18 09:00 Room Air 12/31/18 08:00 97.9 78 20 134/70 (91) 100 12/31/18 04:00 98.3 66 18 115/67 (83) 96 12/31/18 00:00 97.7 72 19 107/70 (82) 96 12/30/18 22:06 Room Air 12/30/18 20:00 97.1 67 18 135/73 (93) 96 12/30/18 16:17 97.0 84 20 110/62 (78) 96 I&O Intake and Output 12/30/18 12/31/18 19:00 07:00 Intake Total 1184 ml 300 ml Output Total 725 ml 350 ml Balance 459 ml -50 ml Intake Oral 1184 ml 300 ml Output Urine Total 725 ml 350 ml # Bowel Movements 1 Dressing: dry Wound: clean Drains: none Cardiovascular: RSR Respiratory: clear Abdomen: soft, flat, non-tender, present bowel sounds Extremities: no edema, no tenderness, no cyanosis Laboratory Tests Test 12/31/18 06:18 White Blood Count 6.7 K/UL (4.8-10.8) Red Blood Count 3.12 M/UL (4.70-6.10) L Hemoglobin 9.9 G/DL (14.2-18.0) L Hematocrit 29.7 % (42.0-52.0) L Mean Corpuscular Volume 95 FL (80-99) Mean Corpuscular Hemoglobin 31.6 PG (27.0-31.0) H Mean Corpuscular Hemoglobin Concent 33.2 G/DL (32.0-36.0) Red Cell Distribution Width 12.1 % (11.6-14.8) Platelet Count 274 K/UL (150-450) Mean Platelet Volume 6.1 FL (6.5-10.1) L Neutrophils (%) (Auto) 60.8 % (45.0-75.0) Lymphocytes (%) (Auto) 25.9 % (20.0-45.0) Monocytes (%) (Auto) 8.6 % (1.0-10.0) Eosinophils (%) (Auto) 3.4 % (0.0-3.0) H Basophils (%) (Auto) 1.3 % (0.0-2.0) Sodium Level 136 MMOL/L (136-145) Potassium Level 3.7 MMOL/L (3.5-5.1) Chloride Level 100 MMOL/L (98-107) Carbon Dioxide Level 27 MMOL/L (21-32) Anion Gap 10 mmol/L (5-15) Blood Urea Nitrogen 30 mg/dL (7-18) H Creatinine 2.6 MG/DL (0.55-1.30) H Estimat Glomerular Filtration Rate 24.7 mL/min (>60) Glucose Level 154 MG/DL (74-106) H Calcium Level 8.7 MG/DL (8.5-10.1) Plan Problems: (1) Sepsis Assessment & Plan: 68-year-old male presented with fevers and sepsis. Patient bacteremic Likely etiology is his tunneled left temporary hemodialysis catheter Recommend removal See report has been improving does not currently need HD okay to d/c Antibiotics as per ID Thank you for allowing me to participate in patient's care (2) Fever (3) Catheter-associated urinary tract infection (4) Influenza-like symptoms (5) ESRD (end stage renal disease) on dialysis (6) HCAP (healthcare-associated pneumonia) (7) Pruritic dermatitis (8) Dyspnea (9) Eye problem (10) Eye problem Trevon Baptiste Dec 31, 2018 13:37
--- NOTE | 2018-12-31 14:18 | NUR ---
NURSE NOTES: Spoke to regarding discharge placement and Dumont catheter and new order received. Order read back and carried out.
--- NOTE | 2018-12-31 14:56 | NUR ---
CASE MANAGEMENT:REVIEW 12/29/18 SI:SEPSIS. BACTEREMIA. PNA. ESRD/HD 98.0 64 18 138/66 98% ON 2L/NC H/H-9.3/27.9 BUN+26 CR+3.0 IS: IV CEFEPIME Q24 ABILIFY PO QD URECHOLINE PO TID PLAVIX PO QD FLONASE QD LISINOPRIL PO QD TOPROL XL PO QD : TELEMETRY STATUS DCP: FROM [facility] PLAN: PERMCATH WAS REMOVED PLANNING TO REPLACE PERMCATH ON Monday12/30/18 SI:SEPSIS. BACTEREMIA. PNA. ESRD/HD 96.8 85 18 106/64 96% ON RA BUN+25 CR+2.8 IS: IV CEFEPIME Q24 ABILIFY PO QD URECHOLINE PO TID PLAVIX PO QD FLONASE QD LISINOPRIL PO QD TOPROL XL PO QD : TELEMETRY STATUS DCP: FROM [facility] PLAN: PERMCATH WAS REMOVED PLANNING TO REPLACE PERMCATH ON Monday12/31/18 SI:SEPSIS. BACTEREMIA. PNA. ESRD/HD 96.8 85 18 106/64 96% ON RA BUN+25 CR+2.8 IS: IV CEFEPIME Q24 ABILIFY PO QD URECHOLINE PO TID PLAVIX PO QD FLONASE QD LISINOPRIL PO QD TOPROL XL PO QD : TELEMETRY STATUS DCP: FROM [facility] PLAN: CANCEL DIALYSIS CATHETER REPLACEMENT HOLDING DIALYSIS DC TO [facility] FOR COMPLETION OF ANTIBIOTICS THEN RETURN TO [facility]
--- NOTE | 2018-12-31 15:06 | NUR ---
DISCHARGE PLAN HAS CHANGED GOING TO SNF FOR COMPLETION OF ANTIBIOTICS THEN WILL RETURN TO [facility]IV[facility] ROOM [address] SKILLED T: [phone] FOR NURSE TO NURSE REPORT [facility] HAS BEEN ARRANGED FOR 1730 GENERAL CLAIMS AGENT
[2018-12-31] MEDS ORDERED: CEFEPIME-D1 GM/50 ML IVPB (15:10)
[2018-12-31] MEDS ORDERED: VANCOMYCIN1 GM/2002 IV (15:30)
[2018-12-31 16:00] VITALS: BP 123/63
--- NOTE | 2018-12-31 16:00 | NUR ---
NURSE NOTES: Called [facility] and spoke to Zofia VAZQUEZ. Given report to Zofia that patient will transfer to facility today.
--- NOTE | 2018-12-31 16:09 | NUR ---
*-* INSURANCE *-* UPDATED CLINICALS AND REVIEWS HAVE BEEN FAXED TO: [facility] REF# [id number] F:[phone]
[2018-12-31] MEDS: Cefepime HCl 1 GM in D5W 55 ML IVPB SCH (17:36)
--- NOTE | 2018-12-31 18:10 | NUR ---
NURSE NOTES: Patient discharged with [facility] ([id number]) in stable condition. Discharge packet given to [facility]. IV and ID removed. Dumont catheter patent and draining well. Patient discharged with Dumont catheter. Belonging given to [facility].
--- NOTE | 2018-12-31 20:52 | Cardiology Report ---
APPROVED REPORT EKG Measurement Heart [id number] Normal sinus rhythm Low voltage QRS Septal infarct, age undetermined Abnormal ECG
[2018-12-31] MEDS ORDERED: Epoetin Alfa-EPBX(ESRD on dialysis)2000 units/ml vial SUBQ SCH (21:00)
[2018-12-31] MEDS ORDERED: Epoetin Alfa-EPBX(ESRD on dialysis)3000 units/ml vial SUBQ SCH (21:00)
--- NOTE | 2019-01-01 14:23 | NUR ---
*-* INSURANCE *-* UPDATED CLINICALS HAVE BEEN FAXED TO: [facility] REF# [id number] F:[phone]
--- NOTE | 2019-01-01 18:25 | Discharge Summary ---
Discharge Summary Discharge Summary _ DATE OF ADMISSION: 12/23/2018 DATE OF DISCHARGE: 12/31/2018 DISCHARGED BY: Dr. Best REASON FOR ADMISSION: 68 years old male with past medical history of chronic renal failure, on hemodialysis, diabetes mellitus type 2, benign prostatic hypertrophy, atrial fibrillation with rapid ventricular rate, hypertension, chronic urinary retention, hyperlipidemia, coronary artery disease, asthma, history of acute [place] , anemia due to GI blood loss, mood disorder, chronic indwelling catheter, was brought to emergency room with complaint of productive cough for the past few days. Upon evaluation patient was febrile. Pulse oximetry was stable on room air. Laboratory work-up revealed no leukocytosis, hemoglobin 9.1, hematocrit 27.2 , platelet count 184. BUN 21, creatinine 2.9. Glucose 238. Lactic acid 1.5. Stable LFT. Troponin 0.011. Pro BNP 2769. Albumin 3.5. Urinalysis revealed pyuria and moderate bacteria. EKG revealed sinus rhythm, no acute ischemic changes. Chest x-ray demonstrated bilateral diffuse interstitial and airspace disease: infiltrates versus edema. In emergency department patient received empiric antibiotics , provided with antitussive. Lasix administered along with nebulizing treatment with bronchodilator . Patient subsequently admitted to medical surgical floor for further management. CONSULTANTS: nursery school attendant Dr. Goyo ESCALANTE specialist Dr. Rothman pile operator Dr.De Le [facility] Dr. Baptiste [facility] COURSE: Patient admitted and started on broad-spectrum antibiotic as per ID specialist recommendation . patient also started on diuretic with close monitoring of volumes and cardiorenal parameters. Echocardiogram demonstrated preserved ejection fraction of 60 to 65% with no evidence of left ventricular hypertrophy. No evidence of wall motion abnormality. No evidence of pericardial effusion. Right ventricular systolic pressure of 33. Repeated troponin was negative as well. Patient continued to be in sinus rhythm. Patient had brief epusode of fibrillation that self terminated. Patient was on beta blockage with Toprol-XL 50 mg daily. Guideline directed medical therapy for congestive heart failure was continued with metoprolol , lisinopril , and hemodialysis. Volumes were closely monitored. Renal parameters and electrolytes were closely monitored. Potassium and magnesium corrected . Antiplatelet therapy with Plavix , beta-suzie and high-dose of statin secondary to coronary artery disease and history of prior stent provided. Blood pressure was managed with beta suzie and MOLLY inhibitor, remained stable Blood sugar was managed with sliding scale of insulin, Infectious disease specialist followed. Blood culture initially revealed Staph epidermidis . Urine culture revealed Klebsiella. Sputum culture was negative. Source of bacteremia suspected to be hemodialysis catheter. Tunneled right chest wall hemodialysis catheter was discontinued by general surgeon. Catheter tip culture revealed Staphylococcus coagulase negative. Per infectious disease specialist, new catheter can be placed in 48 hours if needed. ID specialist also recommended transthoracic echocardiogram to rule out vegetation. Repeated blood cultures 12/25 were negative, which confirmed clearance . End of therapy 01/10/2019. Vancomycin will be dosed after each hemodialysis. Hemodialysis provided as per pile operator. Per pile operator, patient has chronic kidney disease stage IV. Hemodialysis was held , and creatinine continued to improve , down to 2.6. Per nephrology, no Perma-cath insertion was required . Patient will follow up with his pile operator. Centrifuge Separator Operator cleared patient for discharge and recommended to avoid nephrotoxics. Hemoglobin and hematocrit were closely monitored with goal to keep hemoglobin above 7. Patient was on Epogen to keep hemoglobin above 10. Prior to discharge hemoglobin 9.9 ,hematocrit 29.7. Supportive care provided. Pain management was addressed as needed. Patient clinically stabilized and was ready for transfer back to [facility] for continuation of care FINAL DIAGNOSES: Sepsis with Staph epidermidis bacteremia Healthcare associated pneumonia Catheter associated UTI with Klebsiella End-stage renal disease on hemodialysis Chronic kidney disease stage IV Congestive heart failure Atrial fibrillation with history of rapid ventricular response Anemia of chronic kidney disease Hypertension Diabetes mellitus type 2 Chronic urinary retention Hyperlipidemia Chronic renal failure , on hemodialysis Coronary artery disease BPH History of asthma Mood disorder DISCHARGE MEDICATIONS: See Medication Reconciliation list. DISCHARGE INSTRUCTIONS: Patient was discharged to the correction facility. Follow up with medical doctor at the facility. I have been assigned to dictate discharge summary for this account. I was not involved in the patient's management. Petrona Bejarano NP Jan 01, 2019 18:25
--- NOTE | 2019-01-02 04:15 | Discharge Summary ---
DATE OF ADMISSION: 12/23/2018 DATE OF DISCHARGE: 12/31/2018 CHIEF COMPLAINT: Productive cough. HOSPITAL COURSE: This is a 68-year-old male with history of chronic renal failure, who was on hemodialysis, was brought in for complaint of cough and was found to have urinary tract infection and sepsis with PermCath infection leading to sepsis. The patient also had pneumonia and was started on antibiotic originally with broad-spectrum antibiotic with meropenem and vancomycin. The patient responded to treatment, however, after a few days of antibiotic, it was found that he is still having a spike of temperature and ID decided to request for a PermCath to be removed because it was the site of his infection and sepsis. Once the PermCath was removed, the patient's renal function also improved in the last few days of hospital admission and Renal has decided to stop dialysis and cancel putting the PermCath back in because of improvement in his renal function. consultants: Cardiology, Infectious Disease, and Renal and General Surgery. PAST MEDICAL HISTORY: This patient has multiple past medical history including history of diabetes, BPH, paroxysmal atrial fibrillation, chronic urinary retention with hypertension, hyperlipidemia, and coronary artery disease with asthma. He also has history of acute OR and history of anemia due to GI blood loss Following the results of the blood and urine culture, the patient was found to have Staph epidermidis in his original blood culture and Klebsiella oxytoca in his urine culture and he was started on cefepime and vancomycin for his pneumonia and urinary tract infection and sepsis coverage. Vancomycin was switched to Zyvox as outpatient because the patient no longer was on hemodialysis and zyvox has less nephrotoxicity than vancomycin. FINAL DIAGNOSES: Include: 1. Pneumonia. 2. Acute on chronic congestive heart failure. 3. Atrial fibrillation. 4. Urinary tract infection. 5. Sepsis and bacteremia. 6. Chronic renal failure. 7. Diabetes mellitus type 2. 8. Benign prostatic hypertrophy. 9. Hypertension. 10. Chronic urinary retention with chronic indwelling catheter and due to neurogenic bladder. 11. Hyperlipidemia. 12. Coronary artery disease. 13. Asthma. 14. Mood disorder. DISCHARGE MEDICATIONS: Include bisacodyl 5 mg daily, fluticasone 16 gram 1 spray per nostril daily, NovoLog sliding scale insulin, lisinopril 20 mg daily, loratadine 10 mg daily, Zofran 4 mg p.o. q.4 hours p.r.n., promethazine DM 1 teaspoon q.8 hours p.r.n., Abilify 10 mg daily, atorvastatin 40 mg q.h.s., acetaminophen 500 mg q.6 hours p.r.n., bethanechol 25 mg three times a day, Dulcolax 10 mg daily, then Plavix 75 mg daily, Colace 250 mg twice a day, Linzess 290 mcg daily, melatonin 5 mg daily, metoprolol succinate 50 mg daily, Zantac 150 mg twice a day, Flomax 0.4 mg daily, trazodone 150 mg q.h.s., and then cefepime 1 g IV daily until last day of 01/08/2019, and Zyvox 600 mg p.o. b.i.d. for seven days. DISPOSITION: The patient will be discharged to [facility] and I will follow up the patient in a few days. Gem Best M.D. DR: JOS JOB#: [id number] CC: JACK
--- NOTE | 2019-01-02 14:29 | NUR ---
*-* INSURANCE *-* DISCHARGE SUMMARY HAVE BEEN FAXED TO: [facility] REF# [id number] F:[phone]
== END 2018-12-31 18:20 | DRG 721 ==
LOC: EDBD 22:35 → EMR 22:54 → 2E 23:40 → EDBEDREQ 12-24 00:04 → 2E 12-29 05:07 → 3E 12-29 13:34
PROC: 5A1D70Z Performance of Urinary Filtration, Intermittent, Less than 6 Hours Per Day (ICD-10-PCS; 2018-12-24)
PROC: 0JPTXXZ Removal of Tunneled Vascular Access Device from Trunk Subcutaneous Tissue and Fascia, External Approach (ICD-10-PCS; principal; 2018-12-27)
DX: T80.211A Bloodstream infection due to central venous catheter, initial encounter (principal); A41.1 Sepsis due to other specified staphylococcus; I13.2 Hypertensive heart and chronic kidney disease with heart failure and with stage 5 chronic kidney disease, or end stage renal disease; J18.9 Pneumonia, unspecified organism; I12.0 Hypertensive chronic kidney disease with stage 5 chronic kidney disease or end stage renal disease; E11.22 Type 2 diabetes mellitus with diabetic chronic kidney disease; I48.0 Paroxysmal atrial fibrillation; I48.91 Unspecified atrial fibrillation; N18.6 End stage renal disease; T83.511A Infection and inflammatory reaction due to indwelling urethral catheter, initial encounter; I50.9 Heart failure, unspecified; Y95 Nosocomial condition; T82.7XXA Infection and inflammatory reaction due to other cardiac and vascular devices, implants and grafts, initial encounter; Y84.1 Kidney dialysis as the cause of abnormal reaction of the patient, or of later complication, without mention of misadventure at the time of the procedure; N39.0 Urinary tract infection, site not specified; I25.2 Old myocardial infarction; B96.1 Klebsiella pneumoniae [K. pneumoniae] as the cause of diseases classified elsewhere; Y84.6 Urinary catheterization as the cause of abnormal reaction of the patient, or of later complication, without mention of misadventure at the time of the procedure; I25.10 Atherosclerotic heart disease of native coronary artery without angina pectoris; Z99.2 Dependence on renal dialysis; D63.1 Anemia in chronic kidney disease; N40.1 Benign prostatic hyperplasia with lower urinary tract symptoms; R33.8 Other retention of urine; E78.5 Hyperlipidemia, unspecified; F39 Unspecified mood [affective] disorder; H57.9 Unspecified disorder of eye and adnexa; N31.9 Neuromuscular dysfunction of bladder, unspecified
CPT/HCPCS: 36415; 71045; 80048; 80053; 80202; 81003; 82550; 82553; 82962; 83605; 83690; 83880; 84484; 85025; 86706; 87040; 87070; 87081; 87086; 87181; 87205; 93005; 93306; 94640; 94664; 96374; 99285; J1815; J2405; J7620; J8499

== ENCOUNTER 2019-03-06 18:49 | Inpatient (IN) | payer MEDICAID, MEDICARE ==
[~2019-03-06] VITALS: Ht 170.2 cm; Wt 62.6 kg
[~2019-03-06 18:49] MED LIST changes: +ABILIFY10 MG ORAL; +ATORVASTATIN CA40 MG ORAL; +BISACODYL5 MG ORAL; +CEFEPIME-D1 GM/50 ML IVPB; +CICLOPIROX 8%34.6 ML TP; +CLOPIDOGREL75 MG ORAL; +CLOTRIMAZOLE15 GM TOPIC; +DOCUSATE SODIU250 MG ORAL; +FLOMAX0.4 MG ORAL; +FLONASE1 SPRAYS NASAL; +FLUTICASONE PRO16 G1 NASAL; +GLIPIZIDE5 MG ORAL; +INVOKANA100 MG PO; +JENTADUETO 2.51 EAC2 PO; +LINZESS290 MCG PO; +LISINOPRIL20 MG ORAL; +LORATADINE10 M2 ORAL; +MAPAP500 M2 PO; +MELATONIN5 MG/15 ML PO; +METOPROLOL SUCC50 MG ORAL; +NOVOLOG100 UNITS1 SUBQ; +PHENAZOPYRIDIN200 MG ORAL; +PHENERGAN6.25 MG/5 ORAL; +PRINIVIL20 MG ORAL; +TRAZODONE HCL150 MG ORAL; +URECHOLINE25 M1 ORAL; +VANCOMYCIN1 GM/2002 IV; +ZANTAC150 MG ORAL; +ZOFRAN 4 MG4 MG/2 ML IVP
--- NOTE | 2019-03-06 18:56 | NUR ---
ED Nurse Note: Patient brought in by ambulance [address] due to generalized weakness, bystanders helped him and called [facility]. patient reports weakness and headache. BS on the scene was 137. patient is alert awake, reports that he fell down today. breathing unlabored and even, speaking in full sentences.
--- NOTE | 2019-03-06 19:02 | NUR ---
HAND-OFF: Report given to Tatyana VAZQUEZ.
--- NOTE | 2019-03-06 19:04 | NUR ---
ED Nurse Note: Received report from Iraseam VAZQUEZ. Patient alert and oriented, verbally responsive. No SOB. Breathing even and unlabored. VSS.
[2019-03-06 19:10] VITALS: BP 145/80
--- NOTE | 2019-03-06 19:52 | Emergency Room Report ---
History of Present Illness General Chief Complaint: Generalized Weakness Source: Patient Present Illness HPI Disclaimer: Please note that this report is being documented using [employer] technology. This can lead to erroneous entry secondary to incorrect interpretation by the dictating instrument. HPI: 68-year-old male with history of atrial fibrillation, CAD, [place] status post stenting, CHF, BPH with chronic retention and indwelling Dumont, diabetes, CKD previously on hemodialysis but the patient states he has not had hemodialysis for several months, hypertension, hyperlipidemia, asthma, mood disorder presents for evaluation of weakness and fall. The patient states he was feeling weak today because he has not checked his blood sugar in a while. He fell from standing while walking home hitting the front of his head against the concrete. There is no loss of conscious, no vomiting. He denies any blurred vision, neck pain but is complaining of a frontal headache. Complaining of pain over the right hip and scraped in the fingers over his left hand but otherwise states he sustained no other injuries. PMH: CAD, atrial fibrillation, [place], CHF, BPH, diabetes, CKD PSH: Hernia repair Allergies: Denies Social Hx: Denies tobacco, drug and alcohol use Allergies: Coded Allergies: No Known Allergies (Unverified , 12/26/12) Nursing Documentation-PMH Past Medical History: No History, Except For Hx Cardiac Problems: Yes Hx Hypertension: Yes Hx Diabetes: Yes Hx Cancer: No Hx Gastrointestinal Problems: Yes - vomiting Hx Cerebrovascular Accident: Yes Review of Systems All Other Systems: negative except mentioned in HPI Physical Exam Vital Signs Date Time Temp Pulse Resp B/P (MAP) Pulse Ox O2 Delivery O2 Flow Rate FiO2 03/06/19 18:50 98.8 62 19 162/92 (115) 99 Room Air General: Awake and alert, no acute distress HEENT: Normocephalic, atraumatic. There are no scalp or face hematomas, lacerations or abrasions. No tenderness or soft tissue swelling over the facial bones. EOMI. PERRLA. No septal hematoma. No oral lacerations. Dentition is intact. No malocclusion Neck: Supple, trachea midline. Arrives without cervical collar Chest Wall: No tenderness, no deformity, no crepitus CV: Regular rate and rhythm. S1 and S2 normal. No murmur appreciated Resp: Normal work of breathing. No cough, wheezing or crackles appreciated Abd: Soft, nontender, nondistended : Dumont in place. Clear urine Skin: abrasions over the middle phalanx on the fourth and fifth digits of the left hand. MSK: Normal tone and bulk. No obvious deformity. Moving all extremities. Ambulating without difficulty. Neuro: Awake and alert. Mentating appropriately. Sensation is intact to light touch over the dermatomes of the upper and lower extremities Spine: There is no tenderness, step-off or deformity in the cervical, thoracic or lumbosacral spine. Eyes: left eye EOMI Medical Decision Making Diagnostic Impression: Primary Impression: Hyperkalemia Additional Impressions: UTI (urinary tract infection) CKD (chronic kidney disease) Weakness Contusion of hip, right ER Course Is a 68-year-old male with a history of CKD previously on hemodialysis but states he has not received it for several months, multiple other comorbid conditions presenting for evaluation of weakness with fall and minor head injury. There is no loss of conscious, the patient has no external signs of trauma and is only complaining of a mild headache. We will start a broad metabolic and infectious work-up for cause of weakness, obtain an x-ray of the chest, right hip, cardiac labs and give a small dose of IV fluids. It is unclear why the patient would have stopped hemodialysis which he states used to happen at [facility]. He is somewhat of a poor historian. May require admission Laboratory Tests Test 03/06/19 19:57 03/06/19 22:18 White Blood Count 6.1 K/UL (4.8-10.8) Red Blood Count 3.39 M/UL (4.70-6.10) L Hemoglobin 11.2 G/DL (14.2-18.0) L Hematocrit 32.1 % (42.0-52.0) L Mean Corpuscular Volume 95 FL (80-99) Mean Corpuscular Hemoglobin 33.1 PG (27.0-31.0) H Mean Corpuscular Hemoglobin Concent 35.0 G/DL (32.0-36.0) Red Cell Distribution Width 11.0 % (11.6-14.8) L Platelet Count 206 K/UL (150-450) Mean Platelet Volume 6.7 FL (6.5-10.1) Neutrophils (%) (Auto) 58.6 % (45.0-75.0) Lymphocytes (%) (Auto) 29.3 % (20.0-45.0) Monocytes (%) (Auto) 7.6 % (1.0-10.0) Eosinophils (%) (Auto) 3.2 % (0.0-3.0) H Basophils (%) (Auto) 1.3 % (0.0-2.0) Prothrombin Time 10.7 SEC (9.30-11.50) Prothrombin Time INR 1.0 (0.9-1.1) PTT 27 SEC (23-33) Sodium Level 140 MMOL/L (136-145) Potassium Level 5.9 MMOL/L (3.5-5.1) H Chloride Level 106 MMOL/L (98-107) Carbon Dioxide Level 26 MMOL/L (21-32) Anion Gap 8 mmol/L (5-15) Blood Urea Nitrogen 36 mg/dL (7-18) H Creatinine 2.2 MG/DL (0.55-1.30) H Estimate Glomerular Filtration Rate 30.0 mL/min (>60) Glucose Level 117 MG/DL (74-106) H Calcium Level 9.2 MG/DL (8.5-10.1) Total Bilirubin 0.3 MG/DL (0.2-1.0) Aspartate Amino Transferase (AST) 32 U/L (15-37) Alanine Aminotransferase (ALT) 52 U/L (12-78) Alkaline Phosphatase 126 U/L (46-116) H Total Creatine Kinase 206 U/L (26-308) Creatine Kinase MB 4.1 NG/ML (0.0-3.6) H Creatine Kinase MB Relative Index 1.9 Troponin I 0.000 ng/mL (0.000-0.056) Pro-B-Type Natriuretic Peptide 819 pg/mL (0-125) H Total Protein 7.6 G/DL (6.4-8.2) Albumin 3.7 G/DL (3.4-5.0) Globulin 3.9 g/dL Albumin/Globulin Ratio 0.9 (1.0-2.7) L Urine Color Pale yellow Urine Appearance Cloudy Urine pH 5 (4.5-8.0) Urine Specific Venus 1.010 (1.005-1.035) Urine Protein Negative (NEGATIVE) Urine Glucose (UA) Negative (NEGATIVE) Urine Ketones Negative (NEGATIVE) Urine Blood 2+ (NEGATIVE) H Urine Nitrite Negative (NEGATIVE) Urine Bilirubin Negative (NEGATIVE) Urine Urobilinogen Normal MG/DL (0.0-1.0) Urine Leukocyte Esterase 3+ (NEGATIVE) H Urine RBC 5-10 /HPF (0 - 0) H Urine WBC Tntc /HPF (0 - 0) H Urine Squamous Epithelial Cells None /LPF (NONE/OCC) Urine Bacteria Few /HPF (NONE) EKG Diagnostic Results EKG Time: 20:05 Rate: normal Rhythm: NSR ST Segments: no acute changes Other Impression Sinus rhythm, normal intervals, normal axis, slightly peaked T waves in V2 and V3, inverted T wave III. No ST segment changes Rhythm Strip Diag. Results Rhythm Strip Time: 20:05 EP Interpretation: yes Rate: 60s Rhythm: NSR, no PVC's, no ectopy Chest X-Ray Diagnostic Results Chest X-Ray Diagnostic Results : # of Views/Limited/Complete: 1 View Indication: Chest Pain EP Interpretation: Yes Interpretation: no consolidation, no effusion, no pneumothorax, no acute cardiopulmonary disease Impression: No acute disease Electronically Signed by: Electronically signed by Dr. David Slater Other X-Ray Diagnostic Results Other X-Ray Diagnostic Results : X-Ray ordered: Right hip and pelvis # of Views/Limited Vs Complete: Complete Indication: Pain Interpretation: no dislocation, no soft tissue swelling, no fractures Impression: No acute disease Electronically Signed by: Electronically signed by Dr. David Slater Reevaluation Time: 21:27 Last Vital Signs Date Time Temp Pulse Resp B/P (MAP) Pulse Ox O2 Delivery O2 Flow Rate FiO2 03/06/19 18:50 98.8 62 19 162/92 (115) 99 Room Air Status: unchanged Reevaluation Impression CT of the head shows cortical atrophy and enlarged ventricles but no obvious large bleed or mass. Official read is pending. Labs show no white count, mild anemia 11.2 which is normocytic. The patient has a high potassium of 5.9, creatinine of 2.2, BUN of 36 and a negative troponin. Peptide is slightly elevated at 819. No infiltrate or significant edema/effusion on chest x-ray. Urinalysis shows urinary tract infection. Will be treated with ceftriaxone. Patient will require admission for hyperkalemia and UTI. He was treated with calcium gluconate, insulin, glucose. Receiving ceftriaxone. No fracture on hip or pelvis x-rays. No infiltrates in chest. Stable for telemetry floor. Disposition: ADMITTED INPATIENT Condition: Serious David Slater MD Mar 06, 2019 19:52
--- NOTE | 2019-03-06 20:03 | NUR ---
ED Nurse Note: Xray done at bedside.
[2019-03-06 20:10] LABS: BASOPHILS % (AUTO) 1.3 % (0.0-2.0); EOSINOPHILS % (AUTO) 3.2 % (0.0-3.0); HEMATOCRIT 32.1 % (42.0-52.0); HEMOGLOBIN 11.2 G/DL (14.2-18.0); LYMPHOCYTES % (AUTO) 29.3 % (20.0-45.0); MEAN CORPUSCULAR VOLUME 95 FL (80-99); MONOCYTES % (AUTO) 7.6 % (1.0-10.0); NEUTROPHILS % (AUTO) 58.6 % (45.0-75.0); PLATELET COUNT 206 K/UL (150-450); RED BLOOD COUNT 3.39 M/UL (4.70-6.10); WHITE BLOOD COUNT 6.1 K/UL (4.8-10.8)
[2019-03-06 20:26] LABS: ANION GAP 8 mmol/L (5-15); BLOOD UREA NITROGEN 36 mg/dL (7-18); CALCIUM 9.2 MG/DL (8.5-10.1); CARBON DIOXIDE 26 MMOL/L (21-32); CHLORIDE 106 MMOL/L (98-107); CREATININE 2.2 MG/DL (0.55-1.30); POTASSIUM 5.9 MMOL/L (3.5-5.1); SODIUM 140 MMOL/L (136-145)
[2019-03-06 20:39] LABS: ALANINE AMINOTRANSFERASE 52 U/L (12-78); ALBUMIN 3.7 G/DL (3.4-5.0); ALBUMIN/GLOBULIN RATIO 0.9 (1.0-2.7); ALKALINE PHOSPHATASE 126 U/L (46-116); ASPARTATE AMINO TRANSFERASE 32 U/L (15-37); BILIRUBIN,TOTAL 0.3 MG/DL (0.2-1.0); CKMB 4.1 NG/ML (0.0-3.6); CREATINE KINASE 206 U/L (26-308)
[2019-03-06] MEDS ORDERED: Calcium Gluconate 1gm/10ml vial IVP ONE (21:00)
[2019-03-06] MEDS ORDERED: Insulin Human Regular 100units/ml 3ml IV ONE (21:00)
[2019-03-06 21:06] VITALS: BP 135/77
[2019-03-06 22:36] LABS: APPEARANCE,URINE CLOUDY; BILIRUBIN, URINE NEGATIVE (NEGATIVE); COLOR,URINE PALE YELLOW; GLUCOSE, URINE (UA) NEGATIVE (NEGATIVE); KETONES,URINE NEGATIVE (NEGATIVE); LEUKOCYTE ESTERASE ,URINE 3+ (NEGATIVE); NITRITE,URINE NEGATIVE (NEGATIVE); PH,URINE 5 (4.5-8.0); PROTEIN,URINE NEGATIVE (NEGATIVE); UROBILINOGEN,URINE NORMAL MG/DL (0.0-1.0)
--- NOTE | 2019-03-06 22:40 | NUR ---
ED Nurse Note: Report given to Cristina from [facility].
--- NOTE | 2019-03-06 22:47 | NUR ---
ED Nurse Note: Pt went down for CT.
--- NOTE | 2019-03-06 22:55 | NUR ---
ED Nurse Note: Came back from CT.
[2019-03-06] MEDS ORDERED: cefTRIAXone 1 GM in D5W 55 ML IVPB ONE (23:15)
[2019-03-06 23:20] VITALS: BP 130/60
--- NOTE | 2019-03-06 23:25 | NUR ---
TRANSFER TO FLOOR: Patient transferred to Telemetry unit as ordered. Report given to Cristina VAZQUEZ. PAtient alert and oriented, verbally responsive. No SOB. With FC 16fr patent and draining well. IV line on left hand 20g patent and intact. On rocephin 1gm patent and dwelling well. VSS. Afebrile. Belongings was given to the patient.
--- NOTE | 2019-03-06 23:52 | Diagnostic Imaging Report ---
Indication: Head injury. Headache Technique: Contiguous 5 mm thick transaxial imaging of the head obtained in a Siemens Sensation [address] scanner. Soft tissue and bone windows generated. Automatic Exposure Control was utilized. Total Dose length Product (DLP): [address] Dose Index Volume (CTDIvol): 28 mGy Comparison: none Findings: There is moderate prominence of the ventricles, basal cisterns, and cerebral sulci consistent with atrophy. Disproportionate ventriculomegaly is noted. Communicating hydrocephalus could be present. Correlate clinically. Mild, nonspecific, white matter hypoattenuation is noted throughout the brain consistent with chronic small vessel disease. There is no midline shift, edema, acute hemorrhage, mass effect, or abnormal extra-axial fluid collections. Bones are unremarkable. Impression: Communicating hydrocephalus/normal pressure hydrocephalus may be present. Correlate clinically. No acute intracranial bleed, mass effect or edema. Moderate atrophy of the brain. Evidence of chronic small vessel disease involving white matter tracts. [facility] has communicated the preliminary results to the Emergency Department. Their findings are largely concordant with this report. The CT scanner at [facility] is accredited by the [employer] and the scans are performed using dose optimization techniques as appropriate to a performed exam including Automatic Exposure control.
[2019-03-07] VITALS: BP 169/89
--- NOTE | 2019-03-07 | NUR ---
NURSE NOTES: Received pt from TAYLOR Joe. Pt awake, alert, and talkative. Scrapes on hands and bruise on head otherwise skin intact. Pt running SB on residential monitor. Bed in lowest position. Call light within reach. Will continue to monitor.
--- NOTE | 2019-03-07 00:30 | NUR ---
NURSE NOTES: Called and left a message with Dr. Gonzales regarding admission orders. Awaiting call back.
--- NOTE | 2019-03-07 00:43 | NUR ---
NURSE NOTES: Dr. Gonzales called back with the following orders: - continue rosephin 1gm IV daily - NS @50 - CBC, BMP AM - Renal (Kosher) diet - Obtain med list at [facility] Will input orders and will continue to monitor.
--- NOTE | 2019-03-07 02:25 | NUR ---
NURSE NOTES: Fax received from [facility]mers with copy of med list. Called and left a message with Dr. Gonzales. Awaiting call back.
--- NOTE | 2019-03-07 03:33 | NUR ---
NURSE NOTES: Called and left another message with Dr. Gonzales regarding pts home meds. Awaiting call back.
[2019-03-07 03:50] VITALS: BP 140/78
[2019-03-07] MEDS ORDERED: Tylenol #3 tab (300mg/30mg) ORAL PRN (06:30)
[2019-03-07] MEDS ORDERED: Acetaminophen 500mg (ES) tab ORAL PRN (06:30)
[2019-03-07] MEDS ORDERED: Promethazine/DM 6.25mg/5ml ORAL PRN (06:30)
[2019-03-07] MEDS ORDERED: Hydrocortisone 2.5% Oint 30gm TOPIC PRN (06:30)
[2019-03-07] MEDS ORDERED: traMADol 50mg tab ORAL PRN (06:30)
[2019-03-07 07:19] LABS: BASOPHILS % (AUTO) 1.2 % (0.0-2.0); EOSINOPHILS % (AUTO) 2.3 % (0.0-3.0); HEMOGLOBIN 10.7 G/DL (14.2-18.0); LYMPHOCYTES % (AUTO) 27.4 % (20.0-45.0); MEAN CORPUSCULAR VOLUME 95 FL (80-99); MONOCYTES % (AUTO) 7.7 % (1.0-10.0); NEUTROPHILS % (AUTO) 61.5 % (45.0-75.0); PLATELET COUNT 183 K/UL (150-450); RED BLOOD COUNT 3.37 M/UL (4.70-6.10); RED CELL DISTRIBUTION WIDTH 11.7 % (11.6-14.8); WHITE BLOOD COUNT 6.1 K/UL (4.8-10.8)
--- NOTE | 2019-03-07 07:38 | NUR ---
HAND-OFF: Report given to TAYLOR Fofana. Pt stable.
--- NOTE | 2019-03-07 07:38 | NUR ---
NURSE NOTES: Report received from TAYLOR Evans. Pt. sleeping comfortably. Easily awakened by name. In RA. Bed on lowest position, side rails upx2, brakes engaged, alarm on. Call light within easy reach.
[2019-03-07 07:53] LABS: ANION GAP 10 mmol/L (5-15); BLOOD UREA NITROGEN 32 mg/dL (7-18); CALCIUM 9.5 MG/DL (8.5-10.1); CARBON DIOXIDE 23 MMOL/L (21-32); CHLORIDE 109 MMOL/L (98-107); POTASSIUM 5.3 MMOL/L (3.5-5.1); SODIUM 142 MMOL/L (136-145)
[2019-03-07 08:00] VITALS: BP 163/81
[2019-03-07] MEDS: ARIPiprazole 10mg tab ORAL SCH (08:59)
[2019-03-07] MEDS: Bethanechol 25mg Tab ORAL SCH ×3 (09:00→18:08)
[2019-03-07] MEDS: Lactobacillus-GG tablet ORAL SCH ×2 (09:00→17:53)
[2019-03-07] MEDS: Docusate 250mg cap ORAL SCH ×2 (09:00→17:53)
[2019-03-07] MEDS: Eliquis 2.5mg tablet ORAL SCH ×2 (09:00→17:53)
[2019-03-07] MEDS: Lactulose 20gm/30ml UDC ORAL SCH ×2 (09:01→17:54)
--- NOTE | 2019-03-07 09:17 | General Progress Note ---
Assessment/Plan Status: stable Assessment/Plan: 1. Hyperkalemia - improved. change IVF to 1/2 NS x one liter today. 2. CKD - stable and at baseline now. 3. HTN - my restart Metoprolol 12.5 mg daily due to bradycardia. lisinopril was stopped due to hyperkalemia twice in the past 2-3 wks. 4. History of Atrial Fibrillation, 5. CAD 6. AR status post stenting - cardiology consult done. 7. BPH with chronic retention 8. Indwelling [place] 9. Diabetes 10. CKD previously on hemodialysis 11. hypertension 12. hyperlipidemia 13. asthma Subjective Date patient seen: Mar 07, 2019 Time patient seen: 09:00 Constitutional: Reports: weakness HEENT: Reports: no symptoms Cardiovascular: Reports: no symptoms Respiratory: Reports: no symptoms Gastrointestinal/Abdominal: Reports: no symptoms Genitourinary: Reports: no symptoms 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: Reports: no symptoms Endocrine: Reports: no symptoms Hematologic/Lymphatic: Reports: no symptoms Allergies: Coded Allergies: No Known Allergies (Unverified , 12/26/12) Subjective This morning patient is doing better. No dizziness. no sob or chest pain. Objective Last 24 Hour Vital Signs Date Time Temp Pulse Resp B/P (MAP) Pulse Ox O2 Delivery O2 Flow Rate FiO2 03/07/19 08:59 59 163/81 03/07/19 08:00 97.0 59 18 163/81 (108) 98 03/07/19 08:00 59 03/07/19 04:00 47 03/07/19 03:50 98.0 53 18 140/78 (98) 98 03/07/19 00:00 98.4 18 169/89 (115) 98 03/07/19 00:00 46 03/06/19 23:54 Room Air 03/06/19 23:25 97.6 62 19 130/60 100 Room Air 03/06/19 23:20 97.6 62 19 130/60 100 Room Air 03/06/19 21:26 98.8 03/06/19 21:06 98.2 76 18 135/77 99 Room Air 03/06/19 19:10 62 19 Room Air 03/06/19 19:10 98.5 80 19 145/80 99 Room Air 03/06/19 18:50 98.8 62 19 162/92 (115) 99 Room Air Intake and Output 03/06/19 03/07/19 18:59 06:59 Output Total 500 ml Balance -500 ml Output Urine Total 500 ml # Bowel Movements 1 Laboratory Tests 03/06/19 19:57: White Blood Count 6.1, Red Blood Count 3.39L, Hemoglobin 11.2L, Hematocrit 32.1L , Mean Corpuscular Volume 95, Mean Corpuscular Hemoglobin 33.1H, Mean Corpuscular Hemoglobin Concent 35.0, Red Cell Distribution Width 11.0L, Platelet Count 206, Mean Platelet Volume 6.7, Neutrophils (%) (Auto) 58.6, Lymphocytes (%) (Auto) 29.3, Monocytes (%) (Auto) 7.6, Eosinophils (%) (Auto) 3.2H, Basophils (%) (Auto) 1.3, Prothrombin Time 10.7, Prothromb Time International Ratio 1.0, Activated Partial Thromboplast Time 27, Sodium Level 140, Potassium Level 5.9H, Chloride Level 106, Carbon Dioxide Level 26, Anion Gap 8, Blood Urea Nitrogen 36H, Creatinine 2.2H, Estimat Glomerular Filtration Rate 30.0, Glucose Level 117H, Calcium Level 9.2, Total Bilirubin 0.3, Aspartate Amino Transf (AST/SGOT) 32, Alanine Aminotransferase (ALT/SGPT) 52, Alkaline Phosphatase 126H, Total Creatine Kinase 206, Creatine Kinase MB 4.1H, Creatine Kinase MB Relative Index 1.9, Troponin I 0.000, Pro-B-Type Natriuretic Peptide 819H, Total Protein 7.6, Albumin 3.7, Globulin 3.9, Albumin/Globulin Ratio 0.9L 03/06/19 22:18: Urine Color Pale yellow, Urine Appearance Cloudy, Urine pH 5, Urine Specific [place] 1.010, Urine Protein Negative, Urine Glucose (UA) Negative, Urine Ketones Negative, Urine Blood 2+H, Urine Nitrite Negative, Urine Bilirubin Negative, Urine Urobilinogen Normal, Urine Leukocyte Esterase 3+H, Urine RBC 5- 10H, Urine WBC TntcH, Urine Squamous Epithelial Cells None, Urine Bacteria Few 03/07/19 06:49: White Blood Count 6.1, Red Blood Count 3.37L, Hemoglobin 10.7L, Hematocrit 32.0L , Mean Corpuscular Volume 95, Mean Corpuscular Hemoglobin 31.7H, Mean Corpuscular Hemoglobin Concent 33.4, Red Cell Distribution Width 11.7, Platelet Count 183, Mean Platelet Volume 6.9, Neutrophils (%) (Auto) 61.5, Lymphocytes (% ) (Auto) 27.4, Monocytes (%) (Auto) 7.7, Eosinophils (%) (Auto) 2.3, Basophils ( %) (Auto) 1.2, Sodium Level 142, Potassium Level 5.3H, Chloride Level 109H, Carbon Dioxide Level 23, Anion Gap 10, Blood Urea Nitrogen 32H, Creatinine 2.0H , Estimat Glomerular Filtration Rate 33.5, Glucose Level 136H, Calcium Level 9.5 Height (Feet): 5 Height (Inches): 7.00 Weight (Pounds): 138 General Appearance: no apparent distress, alert EENT: normal ENT inspection Neck: non-tender, normal alignment, supple Cardiovascular: normal rate, regular rhythm Respiratory/Chest: lungs clear, normal breath sounds, no respiratory distress Abdomen: normal bowel sounds, non tender, soft Extremities: normal range of motion, non-tender Edema: no edema noted Arm (L), no edema noted Arm (R), no edema noted Leg (L), no edema noted Leg (R), no edema noted Pedal (L), no edema noted Pedal (R), no edema noted Generalized Neurologic: alert, oriented x 3, responsive Skin: warm/dry Lymphatic: normal anterior cervical (L), normal anterior cervical (R), normal posterior cervical (L), normal posterior cervical (R), normal submandibular (L) , normal submandibular (R), normal supraclavicular (L), normal supraclavicular ( R), normal axillary (L), normal axillary (R), normal inguinal (L), normal inguinal (R), normal other Gem Best MD Mar 07, 2019 09:17
--- NOTE | 2019-03-07 09:24 | NUR ---
CASE MANAGEMENT: REVIEW 68 YR OLD MALE BIBA FROM [facility] PMH: CAD, AFIB, [place], CHF, BPH, DM, CKD CC: GENERAL WEAKNESS AND POSSIBLE HEADACHE SI:HYPERKALEMIA; CKD, UTI 98.8 62 19 162/92 99%RA K+ 5.9; BNP 819; CKMB 4.1; BUN+ 36; CR 2.2; RBC 3.39; GFR 30.0; BG 136; H/H 11.2/32.1; IS: IV CEFTRIAXONE @55/HR IV CALCIUM GLUCONATE IVF 50ML BOLUS IV INSULIN X1 TYLENOL PO CT HEAD : TO TELE DCP:
--- NOTE | 2019-03-07 09:34 | Cardiac Electrophysiology PN ---
Subjective Subjective [id number] Objective Last 24 Hour Vital Signs Date Time Temp Pulse Resp B/P (MAP) Pulse Ox O2 Delivery O2 Flow Rate FiO2 03/07/19 08:59 59 163/81 03/07/19 08:00 97.0 59 18 163/81 (108) 98 03/07/19 08:00 59 03/07/19 04:00 47 03/07/19 03:50 98.0 53 18 140/78 (98) 98 03/07/19 00:00 98.4 18 169/89 (115) 98 03/07/19 00:00 46 03/06/19 23:54 Room Air 03/06/19 23:25 97.6 62 19 130/60 100 Room Air 03/06/19 23:20 97.6 62 19 130/60 100 Room Air 03/06/19 21:26 98.8 03/06/19 21:06 98.2 76 18 135/77 99 Room Air 03/06/19 19:10 62 19 Room Air 03/06/19 19:10 98.5 80 19 145/80 99 Room Air 03/06/19 18:50 98.8 62 19 162/92 (115) 99 Room Air Intake and Output 03/06/19 03/07/19 18:59 06:59 Output Total 500 ml Balance -500 ml Output Urine Total 500 ml # Bowel Movements 1 Laboratory Tests Test 03/06/19 19:57 03/06/19 22:18 03/07/19 06:49 White Blood Count 6.1 K/UL (4.8-10.8) 6.1 K/UL (4.8-10.8) Red Blood Count 3.39 M/UL (4.70-6.10) L 3.37 M/UL (4.70-6.10) L Hemoglobin 11.2 G/DL (14.2-18.0) L 10.7 G/DL (14.2-18.0) L Hematocrit 32.1 % (42.0-52.0) L 32.0 % (42.0-52.0) L Mean Corpuscular Volume 95 FL (80-99) 95 FL (80-99) Mean Corpuscular Hemoglobin 33.1 PG (27.0-31.0) H 31.7 PG (27.0-31.0) H Mean Corpuscular Hemoglobin Concent 35.0 G/DL (32.0-36.0) 33.4 G/DL (32.0-36.0) Red Cell Distribution Width 11.0 % (11.6-14.8) L 11.7 % (11.6-14.8) Platelet Count 206 K/UL (150-450) 183 K/UL (150-450) Mean Platelet Volume 6.7 FL (6.5-10.1) 6.9 FL (6.5-10.1) Neutrophils (%) (Auto) 58.6 % (45.0-75.0) 61.5 % (45.0-75.0) Lymphocytes (%) (Auto) 29.3 % (20.0-45.0) 27.4 % (20.0-45.0) Monocytes (%) (Auto) 7.6 % (1.0-10.0) 7.7 % (1.0-10.0) Eosinophils (%) (Auto) 3.2 % (0.0-3.0) H 2.3 % (0.0-3.0) Basophils (%) (Auto) 1.3 % (0.0-2.0) 1.2 % (0.0-2.0) Prothrombin Time 10.7 SEC (9.30-11.50) Prothromb Time International Ratio 1.0 (0.9-1.1) Activated Partial Thromboplast Time 27 SEC (23-33) Sodium Level 140 MMOL/L (136-145) 142 MMOL/L (136-145) Potassium Level 5.9 MMOL/L (3.5-5.1) H 5.3 MMOL/L (3.5-5.1) H Chloride Level 106 MMOL/L (98-107) 109 MMOL/L (98-107) H Carbon Dioxide Level 26 MMOL/L (21-32) 23 MMOL/L (21-32) Anion Gap 8 mmol/L (5-15) 10 mmol/L (5-15) Blood Urea Nitrogen 36 mg/dL (7-18) H 32 mg/dL (7-18) H Creatinine 2.2 MG/DL (0.55-1.30) H 2.0 MG/DL (0.55-1.30) H Estimat Glomerular Filtration Rate 30.0 mL/min (>60) 33.5 mL/min (>60) Glucose Level 117 MG/DL (74-106) H 136 MG/DL (74-106) H Calcium Level 9.2 MG/DL (8.5-10.1) 9.5 MG/DL (8.5-10.1) Total Bilirubin 0.3 MG/DL (0.2-1.0) Aspartate Amino Transf (AST/SGOT) 32 U/L (15-37) Alanine Aminotransferase (ALT/SGPT) 52 U/L (12-78) Alkaline Phosphatase 126 U/L (46-116) H Total Creatine Kinase 206 U/L (26-308) Creatine Kinase MB 4.1 NG/ML (0.0-3.6) H Creatine Kinase MB Relative Index 1.9 Troponin I 0.000 ng/mL (0.000-0.056) Pro-B-Type Natriuretic Peptide 819 pg/mL (0-125) H Total Protein 7.6 G/DL (6.4-8.2) Albumin 3.7 G/DL (3.4-5.0) Globulin 3.9 g/dL Albumin/Globulin Ratio 0.9 (1.0-2.7) L Urine Color Pale yellow Urine Appearance Cloudy Urine pH 5 (4.5-8.0) Urine Specific [place] 1.010 (1.005-1.035) Urine Protein Negative (NEGATIVE) Urine Glucose (UA) Negative (NEGATIVE) Urine Ketones Negative (NEGATIVE) Urine Blood 2+ (NEGATIVE) H Urine Nitrite Negative (NEGATIVE) Urine Bilirubin Negative (NEGATIVE) Urine Urobilinogen Normal MG/DL (0.0-1.0) Urine Leukocyte Esterase 3+ (NEGATIVE) H Urine RBC 5-10 /HPF (0 - 0) H Urine WBC Tntc /HPF (0 - 0) H Urine Squamous Epithelial Cells None /LPF (NONE/OCC) Urine Bacteria Few /HPF (NONE) Microbiology Date/Time Source Procedure Growth Status 03/06/19 22:18 Urine,Clean Catch Urine Culture - Preliminary NO GROWTH Resulted Milan Fields MD Mar 07, 2019 09:34
--- NOTE | 2019-03-07 09:35 | Diagnostic Imaging Report ---
Indications: Right hip pain after trauma; patient fell Findings: Two views of the right hip were obtained. No acute fracture is demonstrated. Alignment of the hip is within normal limits. Soft tissues are unremarkable. Incidentally, there is a slight cortical irregularity at the lesser trochanter which could be due to insertional tendinitis. Correlate clinically Impression: Negative for acute injury. Query insertional tendinitis at the lesser trochanter. This is incidental.
--- NOTE | 2019-03-07 10:11 | Diagnostic Imaging Report ---
Indication: Dyspnea Comparison: 12/23/2018 A single view chest radiograph was obtained. Findings: There may be mild pulmonary vascular congestion present. Lung volumes are low. Heart is mildly enlarged. Bones are osteopenic. IMPRESSION: Probable mild pulmonary vascular congestion. Correlate clinically
--- NOTE | 2019-03-07 11:03 | NUR ---
CASE MANAGEMENT: REVIEW 68 YR OLD MALE BIBA FROM [facility] [place] PMH: CAD, AFIB, [place], CHF, BPH, DM, CKD CC: GENERAL WEAKNESS AND POSSIBLE HEADACHE SI:HYPERKALEMIA; CKD, UTI 98.8 62 19 162/92 99%RA K+ 5.9; BNP 819; CKMB 4.1; BUN+ 36; CR 2.2; RBC 3.39; GFR 30.0; BG 136; H/H 11.2/32.1; IS: IV CEFTRIAXONE @55/HR IV CALCIUM GLUCONATE IVF 50ML BOLUS IV INSULIN X1 TYLENOL PO CT HEAD : TO TELE DCP: TO RETURN HOME AFTER DISCHARGE
--- NOTE | 2019-03-07 11:45 | NUR ---
PT EVALUATION NOTE Patient seen for initial evaluation, see complete evaluation for details. Patient presents with generalized weakness, impaired balance and safety awareness which affects patient's ability to perform mobility activities safely. Patient is at risk for falls as he reports that he has fallen in the past due to impaired vision. Patient required min assist for bed mobility and transfers, ambulated 120 ft with a FWW to improve gait stability and decrease risk of falling. Patient will benefit from skilled inpatient PT intervention to address strength, balance and safety to improve gait stability and functional endurance for ADLs and decrease risk for falls. Recommend discharge to SNF for short term rehab once medically cleared by MD. Recommend FWW for home use for gait stability and balance. Addendum: 03/07/19 at 1328 by PIETER DENT PT Amended: Links added.
[2019-03-07 12:00] VITALS: BP 145/75
--- NOTE | 2019-03-07 15:02 | NUR ---
*-* INSURANCE *-* ALL CLINICALS AND REVIEWS HAVE BEEN FAXED TO: [facility] TO [phone] Addendum: 03/08/19 at 1012 by DOMO JOHNSON [facility] REF# [id number] F: [phone]
[2019-03-07 16:00] VITALS: BP 141/70
--- NOTE | 2019-03-07 16:45 | Consultation ---
DATE OF CONSULTATION: 03/07/2019 CARDIOLOGY CONSULTATION CONSULTING PHYSICIAN: Milan Fields M.D. REFERRING PHYSICIAN: Gem Best M.D. REASON FOR CONSULTATION: Management of hypertension, coronary artery disease, and atrial fibrillation. HISTORY OF PRESENT ILLNESS: The patient is a very pleasant 68-year-old Nigerian gentleman that I am familiar with from previous hospitalization about two months ago. The patient has a history of hypertension and coronary artery disease as well as paroxysmal atrial fibrillation. At some point, the patient was on hemodialysis just two months ago when it was discontinued. The patient came to the emergency room with increasing hyperkalemia and Cardiology consultation was obtained for further evaluation and management. At the time of my evaluation, the patient denies any chest pain or palpitation or shortness of breath. REVIEW OF SYSTEMS: Negative other than what was mentioned in the history of present illness. PAST MEDICAL HISTORY: 1. Hypertension. 2. Prior myocardial infarction. 3. Paroxysmal atrial fibrillation. 4. Congestive heart failure. 5. Diabetes. 6. Chronic kidney disease with history of hemodialysis two months ago that has been discontinued. 7. Benign prostatic hypertrophy. FAMILY HISTORY: Noncontributory. SOCIAL HISTORY: He lives in a retirement. Does not smoke or drink alcohol. PHYSICAL EXAMINATION: VITAL SIGNS: Show blood pressure 160/81, pulse 69, rate initially was 46 in setting of beta-suzie, respirations 18, and he is afebrile. HEAD AND NECK: Showed no JVD or carotid bruits. LUNGS: Clear. CARDIOVASCULAR: Shows regular S1 and S2 with no gallop or murmur. ABDOMEN: Soft. EXTREMITIES: No pitting edema. LABORATORY AND DIAGNOSTIC DATA: EKG shows sinus rhythm with low-voltage QRS. His labs show white count 6.1, hemoglobin 10.7, hematocrit 32, and platelet count 183,000. Sodium 142, potassium 5.3, BUN 32, and creatinine 2.0. Glucose 136. INR is 1. ASSESSMENT AND PLAN: 1. Bradycardia. The patient was on metoprolol 50 mg b.i.d. that we decreased to only 12.5 mg b.i.d. and watch the patient on telemetry. 2. Coronary artery disease. Denies any chest pain, on Lipitor 80 mg and low-dose beta-suzie. 3. Hypertension, on Lopressor 12.5 mg b.i.d. and amlodipine 5 mg b.i.d. 4. Paroxysmal atrial fibrillation, on metoprolol and Eliquis, currently in sinus rhythm. 5. Hyperkalemia and renal failure. 6. Depression, on Abilify. Thank you very much, Dr. Best, for allowing me to participate in the care of this patient. Please do not hesitate to contact me for any questions regarding my evaluation. Milan Fields M.D. DR: NELI JOB#: [id number] CC:
[2019-03-07] MEDS: NovoLOG Insulin Flexpen SUBQ SCH ×2 (17:55→21:00)
--- NOTE | 2019-03-07 19:48 | NUR ---
HAND-OFF: Report given to TAYLOR Valente. Pt. in stable condition. Plan of care endorsed.
[2019-03-07 20:00] VITALS: BP 141/79
[2019-03-07] MEDS ORDERED: Atorvastatin 80mg tab ORAL SCH (21:00)
[2019-03-07] MEDS ORDERED: TraZODone 100mg tab ORAL SCH (21:00)
[2019-03-07] MEDS: Metoprolol Tartrate 12.5mg TAB ORAL SCH (21:00)
[2019-03-07] MEDS ORDERED: cefTRIAXone 1 GM in D5W 55 ML IVPB SCH (23:00)
[2019-03-08] VITALS: BP 143/80
--- NOTE | 2019-03-08 00:30 | History and Physical Report ---
DATE OF ADMISSION: 03/06/2019 This is a late entry. CHIEF COMPLAINT: Recent fall in the street. HISTORY OF PRESENT ILLNESS: This is a pleasant 68-year-old [place] male who was brought in by girls swimming coach because of the patient had a fall in the street and he hit his head to the concrete in the sidewalk. Upon arrival, the patient was seen in the emergency room and he had hyperkalemia and urinary tract infection. The patient has a history of coronary artery disease, hypertension, paroxysmal AFib, and chronic kidney disease. The patient was on hemodialysis up to 2 months ago and his kidney function improved and dialysis was stopped. The patient was also admitted to [facility] recently for urinary tract infection and hyperkalemia as well. The patient denied any chest pain or shortness of breath or dizziness. PAST MEDICAL HISTORY: Includes history of hypertension, hyperlipidemia, coronary artery disease, paroxysmal AFib, chronic kidney disease, diabetes, history of congestive heart failure, and benign prostatic hypertrophy. FAMILY HISTORY: Noncontributory. SOCIAL HISTORY: The patient lives in the [facility]. He does not smoke or drink. No history of alcohol use or IV drug use. ALLERGIES: No known drug allergies. REVIEW OF SYSTEMS: Negative except for HPI. PHYSICAL EXAMINATION: VITAL SIGNS: Includes vital signs of temperature 98.8, pulse 62, respirations 19, blood pressure 162/92, pulse ox 99% on room air. GENERAL APPEARANCE: Alert, no apparent distress. HEENT: Normocephalic, normochromic. Extraocular muscles intact. NECK: Supple. No lymphadenopathy CARDIOVASCULAR: Regular rate and rhythm. No murmur. No gallop, but actually was slightly bradycardic. LUNGS: Clear to auscultation bilaterally. ABDOMEN: Soft, nontender, nondistended. EXTREMITIES: No edema, cyanosis, or clubbing. NEUROLOGIC: Awake and responds to commands. SKIN: No rash. LABORATORY AND DIAGNOSTIC DATA: Include WBC 6.1, hemoglobin is 11.2, hematocrit 31.1, platelet count 206, neutrophils 58.6, lymphocytes 29.3, mono 7.6, eosinophils 3.2, basophils 1.3. Sodium 140, potassium 5.9, chloride 106, carbon dioxide 26, BUN 36, creatinine 2.2, glucose 117. AST 32, ALT 52, alkaline phosphatase 126. Troponin 0. BNP 819. Albumin 3.7. PT is 10.7, INR 1, PTT 27. UA showed +2 urine blood, +3 leukocyte esterase, 5 to 10 rbc's, wbc's too many to count, few bacteria. Chest x-ray showed mild pulmonary vascular congestion. CT of the head showed no acute intracranial bleed or mass effect, moderate atrophy of the brain, evidence of chronic small vessel disease involving the white matter, and also possible communicating hydrocephalus or normal pressure hydrocephalus maybe present. EKG showed normal sinus rhythm with low-voltage QRS. IMPRESSION: 1. Bradycardia. We will hold metoprolol 50 mg overnight and reassess in the morning. 2. Hyperlipidemia. We will hold MOLLY inhibitor and place the patient on IV fluid and monitor the potassium level. 3. History of coronary artery disease. Continue the patient on Lipitor and low-dose aspirin. 4. Hypertension. We will start the patient on amlodipine and again we will reassess in the a.m. 5. History of paroxysmal AFib, on Eliquis and metoprolol is on hold due to bradycardia for now. 6. History of chronic renal disease and hyperkalemia. Currently at the baseline creatinine. 7. Depression. We will continue the patient on Abilify for now. 8. Urinary tract infection. We will continue Rocephin 1 g IV daily and follow urine culture. The patient will be admitted for minimum of 2-night stay for the diagnoses of hyperkalemia and urinary tract infection. Gem Best M.D. DR: PASTOR JOB#: [id number] CC: JACK
[2019-03-08 04:00] VITALS: BP 123/65
[2019-03-08] MEDS: NovoLOG Insulin Flexpen SUBQ SCH ×2 (06:27→12:24)
[2019-03-08 07:11] LABS: BASOPHILS % (AUTO) 1.1 % (0.0-2.0); EOSINOPHILS % (AUTO) 3.8 % (0.0-3.0); HEMATOCRIT 31.4 % (42.0-52.0); HEMOGLOBIN 10.8 G/DL (14.2-18.0); MEAN CORPUSCULAR VOLUME 95 FL (80-99); MONOCYTES % (AUTO) 5.9 % (1.0-10.0); NEUTROPHILS % (AUTO) 59.3 % (45.0-75.0); PLATELET COUNT 181 K/UL (150-450); RED BLOOD COUNT 3.31 M/UL (4.70-6.10); WHITE BLOOD COUNT 6.7 K/UL (4.8-10.8)
--- NOTE | 2019-03-08 07:28 | NUR ---
NURSE NOTES: Report received from TAYLOR Valente. Pt. sleeping comfortably. In RA. No signs of discomfort breathing difficulty noticed. IV intact and running. FC draining and intact. Call light left within easy reach.
[2019-03-08 07:31] LABS: ANION GAP 11 mmol/L (5-15); BLOOD UREA NITROGEN 29 mg/dL (7-18); CALCIUM 8.5 MG/DL (8.5-10.1); CARBON DIOXIDE 22 MMOL/L (21-32); CHLORIDE 105 MMOL/L (98-107); CREATININE 2.1 MG/DL (0.55-1.30); POTASSIUM 4.6 MMOL/L (3.5-5.1); SODIUM 138 MMOL/L (136-145)
[2019-03-08 08:00] VITALS: BP 133/75
[2019-03-08] MEDS ORDERED: Aspirin EC 81mg tab ORAL SCH (09:00)
[2019-03-08] MEDS: Metoprolol Tartrate 12.5mg TAB ORAL SCH (09:22)
[2019-03-08] MEDS: Docusate 250mg cap ORAL SCH (09:22)
[2019-03-08] MEDS: ARIPiprazole 10mg tab ORAL SCH (09:22)
[2019-03-08] MEDS: Lactobacillus-GG tablet ORAL SCH (09:23)
[2019-03-08] MEDS: Lactulose 20gm/30ml UDC ORAL SCH (09:23)
[2019-03-08] MEDS: Bethanechol 25mg Tab ORAL SCH ×2 (09:23→12:25)
[2019-03-08] MEDS: Eliquis 2.5mg tablet ORAL SCH (09:23)
[2019-03-08] MEDS ORDERED: COLACE250 MG ORAL (09:24)
[2019-03-08] MEDS ORDERED: FAMOTIDINE20 MG ORAL (09:24)
[2019-03-08] MEDS ORDERED: ACETAMINOPHEN500 MG ORAL (09:24)
[2019-03-08] MEDS ORDERED: NOVOLOG100 UNITS1 SUBQ (09:24)
[2019-03-08] MEDS ORDERED: ASPIRIN EC81 MG ORAL (09:24)
[2019-03-08] MEDS ORDERED: NORVASC2.5 MG ORAL (09:24)
[2019-03-08] MEDS ORDERED: LIPITOR80 MG ORAL (09:24)
[2019-03-08] MEDS ORDERED: TRAMADOL HCL50 MG ORAL (09:24)
[2019-03-08] MEDS ORDERED: LOPRESSOR25 M1 ORAL (09:24)
[2019-03-08] MEDS ORDERED: ZOFRAN 4 MG4 MG/2 ML IVP (09:24)
[2019-03-08] MEDS ORDERED: ABILIFY10 MG ORAL (09:24)
[2019-03-08] MEDS ORDERED: CULTURELLE1 EACH ORAL (09:24)
[2019-03-08] MEDS ORDERED: LACTULOSE20 GM/301 ORAL (09:24)
[2019-03-08] MEDS ORDERED: URECHOLINE25 MG ORAL (09:24)
[2019-03-08] MEDS ORDERED: ELIQUIS2.5 MG ORAL (09:24)
--- NOTE | 2019-03-08 10:23 | NUR ---
DISCHARGE PLANNING: DISCUSSED DISCHARGE WITH PATIENT AT BEDSIDE SPOKE WITH STAS KIM; FAXED A COPY OF ER REPORT FACILITY IS WAITING FOR HIS ARRIVAL NURSE WILL CALL FACILITY TO GIVE REPORT ON ANY NEW MEDICATION T:[phone] F:[phone] TRANSPORTATION WILL BE ARRANGED BY NURSE TO FACILITY
--- NOTE | 2019-03-08 11:40 | NUR ---
NURSE NOTES: Report given to Delmis at [facility].
[2019-03-08 12:00] VITALS: BP 139/74
--- NOTE | 2019-03-08 13:02 | Cardiac Electrophysiology PN ---
Assessment/Plan Assessment/Plan 1. Bradycardia. Better after metoprolol 50 mg b.i.d. decreased to 12.5 mg b.i.d. 2. Coronary artery disease. Denies any chest pain, on Lipitor 80 mg and low- dose beta-suzie. 3. Hypertension, on Lopressor 12.5 mg b.i.d. and amlodipine 5 mg b.i.d. 4. Paroxysmal atrial fibrillation, on metoprolol and Eliquis, 5. Hyperkalemia and renal failure. 6. Depression, on Abilify. OK To DC DW RN Subjective Subjective Feeling better. No CP or SOB Objective Last 24 Hour Vital Signs Date Time Temp Pulse Resp B/P (MAP) Pulse Ox O2 Delivery O2 Flow Rate FiO2 03/08/19 12:00 58 03/08/19 12:00 98.0 108 16 139/74 (95) 98 03/08/19 09:22 57 133/75 03/08/19 09:22 57 133/75 03/08/19 09:00 Room Air 03/08/19 08:00 57 03/08/19 08:00 98.0 73 20 133/75 (94) 96 03/08/19 04:00 52 03/08/19 04:00 98.3 55 18 123/65 (84) 97 03/08/19 00:00 58 03/08/19 00:00 98.0 69 18 143/80 (101) 98 03/07/19 21:00 Room Air 03/07/19 21:00 63 141/79 03/07/19 20:00 98.0 63 18 141/79 (99) 98 03/07/19 20:00 64 03/07/19 17:53 76 141/70 03/07/19 16:00 76 03/07/19 16:00 97.0 60 20 141/70 (93) 98 Intake and Output 03/07/19 03/08/19 18:59 06:59 Intake Total 480 ml Output Total 1200 ml 920 ml Balance -720 ml -920 ml Intake Oral 480 ml Output Urine Total 1200 ml 920 ml # Voids 2 Laboratory Tests Test 03/08/19 06:20 White Blood Count 6.7 K/UL (4.8-10.8) Red Blood Count 3.31 M/UL (4.70-6.10) L Hemoglobin 10.8 G/DL (14.2-18.0) L Hematocrit 31.4 % (42.0-52.0) L Mean Corpuscular Volume 95 FL (80-99) Mean Corpuscular Hemoglobin 32.6 PG (27.0-31.0) H Mean Corpuscular Hemoglobin Concent 34.3 G/DL (32.0-36.0) Red Cell Distribution Width 11.0 % (11.6-14.8) L Platelet Count 181 K/UL (150-450) Mean Platelet Volume 7.4 FL (6.5-10.1) Neutrophils (%) (Auto) 59.3 % (45.0-75.0) Lymphocytes (%) (Auto) 30.0 % (20.0-45.0) Monocytes (%) (Auto) 5.9 % (1.0-10.0) Eosinophils (%) (Auto) 3.8 % (0.0-3.0) H Basophils (%) (Auto) 1.1 % (0.0-2.0) Sodium Level 138 MMOL/L (136-145) Potassium Level 4.6 MMOL/L (3.5-5.1) Chloride Level 105 MMOL/L (98-107) Carbon Dioxide Level 22 MMOL/L (21-32) Anion Gap 11 mmol/L (5-15) Blood Urea Nitrogen 29 mg/dL (7-18) H Creatinine 2.1 MG/DL (0.55-1.30) H Estimat Glomerular Filtration Rate 31.7 mL/min (>60) Glucose Level 130 MG/DL (74-106) H Calcium Level 8.5 MG/DL (8.5-10.1) Microbiology Date/Time Source Procedure Growth Status 03/06/19 22:18 Urine,Clean Catch Urine Culture - Final NO GROWTH AFTER 48 HOURS Complete Objective HEAD AND NECK: no JVD or carotid bruits. LUNGS: Clear. CARDIOVASCULAR: regular S1 and S2 with no gallop or murmur. ABDOMEN: Soft. EXTREMITIES: No pitting edema. Milan Fields MD Mar 08, 2019 13:02
--- NOTE | 2019-03-08 13:50 | NUR ---
NURSE NOTES: Pt. to be discharged with metoprolol dose verified by Dr. Sanchez.
--- NOTE | 2019-03-08 14:15 | NUR ---
NURSE NOTES: Report given to ambulance personnel [place].
--- NOTE | 2019-03-08 14:30 | NUR ---
NURSE NOTES: DISCHARGE Pt. in stable condition. Aware of discharge plan and discharge disposition. Medication teaching done. Safety teaching done. Folder given to Pt. IV removed, intact, covered. Name band and cardiac cath lab manager removed. Belongings checked with Pt. signed and filed. Walker provided to Pt. upon discharge. VS stable with T98.1, RR 17, BP 145/77, P61, O2 sat 98. Left floor safe accompanied by ambulance personnel.
--- NOTE | 2019-03-08 14:43 | NUR ---
RD ASSESSMENT & RECOMMENDATIONS SEE CARE ACTIVITY FOR COMPLETE ASSESSMENT DAILY ESTIMATED NEEDS: Needs based on CKD w/ h/o HD 63kg 25-30 kcals/kg 4433-4069 total kcals 0.8-1.2 g protein/kg 50-76 g total protein Fluid per MD, h/o HD NUTRITION DIAGNOSIS: Altered nutrition related lab values r/t clinical status as evidenced by elev Creat (2.1), elev K on adm (5.9-> wnl). PO DIET RECOMMENDATIONS: RENAL / KOSHER DIET ADDITIONAL RECOMMENDATIONS: 1) Obtain a standing weight as able 2) Add NEPRO qdaily w/ variable po intake 3) On lactulose, monitor for loose bm / monitor lytes 4) A1C for eval, need for carb restriction
--- NOTE | 2019-03-10 08:29 | Discharge Summary ---
Discharge Summary Discharge Summary _ DATE OF ADMISSION: 03/06/2019 DATE OF DISCHARGE: 03/08/2019 DISCHARGED BY: Dr. Gem Best CONSULTANTS: Dr. Milan Fields BRIEF HOSPITAL COURSE: Patient is a 68-year-old male, who was brought in by [employer] because of fall on the street and head trauma. Patient had a fall and hit his head to the concrete in the sidewalk. He has history of coronary artery disease, hypertension, CHF, BPH, hyperlipidemia, paroxysmal atrial fibrillation and chronic kidney disease. The patient was on hemodialysis up to 2 months ago and his kidney function improved and dialysis was stopped. He was also admitted to [facility] recently for urinary tract infection and hyperkalemia. He denied chest pain or shortness of breath, no dizziness. Upon arrival to ED, blood pressure was elevated to 162/92, heart rate 62. Blood work did not show any leukocytosis. Hemoglobin 11, hematocrit 32. Potassium was elevated to 5.9. BUN 36 and creatinine 2.2. Troponin was negative. proBNP 819. Urinalysis revealed 3+ leukocyte esterase, too numerous to count urine WBC, 5-10 urine RBC, 2+ blood. EKG was in normal sinus rhythm, normal axis, slightly peaked T waves in V2 and V3, inverted T waves in III. No ST segment changes. Chest x-ray did not show any acute disease. X-ray of the right hip and pelvis did not show any dislocation, no fractures, no soft tissue swelling. CT of the head read by ED physician showed cortical atrophy and enlarged ventricles but no obvious bleed or mass. He was given ceftriaxone. He was given calcium gluconate, insulin, and glucose. He was then admitted for hyperkalemia and UTI. He was admitted to the monitored floor. He showed evidence of bradycardia. Metoprolol was placed on hold. He was continued on Lipitor and low-dose aspirin. Blood pressure was elevated he was started on amlodipine. Patient has a history of paroxysmal atrial fibrillation. He was given Eliquis. Kidney function was monitored. Patient has history of chronic renal disease. Creatinine was at baseline. He was continued on Rocephin for urine infection. He was continued on Abilify. Industrial Relations Analyst was consulted. Cardiac rhythm was monitored. Metoprolol was decreased to 12.5 mg twice daily. Echocardiogram done. Official results still pending. He was given PT. Potassium eventually normalized. Bradycardia improved with lower dose metoprolol. Urine culture did not isolate any growth. He was then discharged to SNF. FINAL DIAGNOSES: Hyperkalemia, resolved Urinary tract infection Bradycardia, Hyperlipidemia Coronary artery disease Hypertension Paroxysmal atrial fibrillation on Eliquis Chronic renal failure Depression DISPOSITION: DC to [facility] DISCHARGE MEDICATIONS: Refer to Discharge Medication List. I have been assigned to complete a discharge summary on this account, I was not involved with the patient's management.--SYMONE Fisher Jacqueline Robles NP Mar 10, 2019 08:29
--- NOTE | 2019-03-10 14:49 | Cardiology Report ---
APPROVED REPORT EKG Measurement Heart [id number] Normal sinus rhythm Low voltage QRS Cannot rule out Anterior infarct, age undetermined Abnormal ECG
--- NOTE | 2019-03-11 09:35 | Cardiology Report ---
APPROVED REPORT EXAM: Two-dimensional and M-mode echocardiogram with Doppler and color Doppler. INDICATION Congestive Heart Failure M-Mode DIMENSIONS IVSd1.1 (0.7-1.1cm)Left Atrium (MM)3.3 (1.6-4.0cm) LVDd4.6 (3.5-5.6cm)Aortic Root2.7 (2.0-3.7cm) PWd1.1 (0.7-1.1cm)Aortic Cusp Exc.1.7 (1.5-2.0cm) IVSs1.3 cm LVDs3.2 (2.5-4.0cm) PWs1.4 cm Normal left ventricular chamber size, systolic function and wall motion to extent visualized. Left ventricular ejection fraction estimated to be 55 %. No evidence of left ventricular hypertrophy . Anterior Echo-free space, may be due to pericardial fat or effusion. All other cardiac chamber sizes are within normal limits. Focal aortic valve sclerosis with adequate cusp excursion. Thickened mitral valve leaflets with normal excursion. Mitral annulus and aortic root calcification. Normal pulmonic valve structure. Normal tricuspid valve structure. IVC at normal size with physiologic collapse. A color flow and spectral Doppler study was performed and revealed: Trace aortic regurgitation. Mild to moderate mitral regurgitation. Mitral diastolic velocities suggest reduced left ventricular relaxation c/w impaired relaxation grade one diastolic dysfunction. Mild tricuspid regurgitation. Tricuspid systolic velocities suggests peak right ventricular systolic pressure of 43mmHg,consistent with mild pulmonary hypertension.
== END 2019-03-08 14:27 | DRG 425 ==
LOC: EDBD 18:49 → EMR 19:27 → 2E 21:11 → EDBEDREQ 22:28
DX: E87.5 Hyperkalemia (principal); N39.0 Urinary tract infection, site not specified; N18.9 Chronic kidney disease, unspecified; I48.91 Unspecified atrial fibrillation; I25.10 Atherosclerotic heart disease of native coronary artery without angina pectoris; R00.1 Bradycardia, unspecified; E78.5 Hyperlipidemia, unspecified; I48.0 Paroxysmal atrial fibrillation; F32.9 Major depressive disorder, single episode, unspecified; Z79.01 Long term (current) use of anticoagulants; I25.2 Old myocardial infarction; I13.0 Hypertensive heart and chronic kidney disease with heart failure and stage 1 through stage 4 chronic kidney disease, or unspecified chronic kidney disease; E11.22 Type 2 diabetes mellitus with diabetic chronic kidney disease; I50.9 Heart failure, unspecified; N40.1 Benign prostatic hyperplasia with lower urinary tract symptoms; R33.8 Other retention of urine; J45.909 Unspecified asthma, uncomplicated; Z91.81 History of falling
CPT/HCPCS: 36415; 70450; 71045; 80048; 80053; 81003; 82550; 82553; 82962; 83880; 84484; 85025; 85610; 85730; 87086; 93005; 93306; 96365; 96375; 99285; J1815

== ENCOUNTER 2019-04-11 20:51 | Emergency (ER) | payer MEDICARE, MEDICAID ==
[~2019-04-11] VITALS: Ht 160 cm; Wt 63.5 kg
[~2019-04-11 20:51] MED LIST changes: +ACETAMINOPHEN500 MG ORAL; +ASPIRIN EC81 MG ORAL; +COLACE250 MG ORAL; +CULTURELLE1 EACH ORAL; +ELIQUIS2.5 MG ORAL; +FAMOTIDINE20 MG ORAL; +LACTULOSE20 GM/301 ORAL; +LIPITOR80 MG ORAL; +LOPRESSOR25 M1 ORAL; +NORVASC2.5 MG ORAL; +TRAMADOL HCL50 MG ORAL; +URECHOLINE25 MG ORAL
--- NOTE | 2019-04-11 20:56 | NUR ---
ED Nurse Note: PT CAME FROM [facility]ULANCE C/C BLE SWELLING AND LEG PAIN SINCE TODAY. DENIES RECENT INJURIES NOR FALL. NOTED MILD NONPITTING SWELLING ON RIGHT LOWER EXT. WILL CONT MONITOR.
--- NOTE | 2019-04-11 21:12 | Emergency Room Report ---
History of Present Illness General Chief Complaint: Pain Source: Patient, Medical Record Present Illness HPI This is a 68-year-old male who has history of mental retardation, hypertension, diabetes and CAD. He presents with chief complaint of by lower extremity pain and edema. Onset for 2 weeks but worse in the last couple days. No trauma. No fever chest pain or shortness of breath. Nothing made it better. Nothing made it worse. Denies any complaint. Allergies: Coded Allergies: No Known Allergies (Unverified , 12/26/12) Patient History Past Medical History: see triage record, old chart reviewed, DM, HTN, CAD Past Surgical History: none Pertinent Family History: none Social History: Denies: smoking Immunizations: UTD Reviewed Nursing Documentation: PMH: Agreed; PSxH: Agreed Nursing Documentation-PMH Past Medical History: No History, Except For Hx Cardiac Problems: Yes Hx Hypertension: Yes Hx Diabetes: Yes Hx Cancer: No Hx Gastrointestinal Problems: Yes - vomiting Hx Cerebrovascular Accident: Yes Review of Systems Eye: Denies: eye pain, blurred vision ENT: Denies: ear pain, nose congestion, throat swelling Respiratory: Denies: cough, shortness of breath Cardiovascular: Denies: chest pain, palpitations Gastrointestinal: Denies: abdominal pain, diarrhea, nausea, vomiting Musculoskeletal: Denies: back pain, joint pain Skin: Denies: rash Neurological: Denies: headache, numbness Endocrine: Denies: increased thirst, increased urine Hematologic/Lymphatic: Denies: easy bruising All Other Systems: negative except mentioned in HPI Physical Exam Vital Signs Date Time Temp Pulse Resp B/P (MAP) Pulse Ox O2 Delivery O2 Flow Rate FiO2 04/11/19 20:56 98.4 73 18 146/78 (100) 99 Room Air Vitals unremarkable Sp02 EP Interpretation: reviewed, normal General Appearance: well appearing, no apparent distress, alert Head: normocephalic, atraumatic Eyes: bilateral eye PERRL, bilateral eye EOMI ENT: hearing grossly normal, normal pharynx Neck: full range of motion, supple, no meningismus Respiratory: chest non-tender, lungs clear, normal breath sounds Cardiovascular #1: regular rate, rhythm, no murmur Gastrointestinal: normal bowel sounds, non tender, no mass, no organomegaly, no bruit, non-distended Musculoskeletal: back normal, gait/station normal, normal range of motion, swelling - 1+ pitting edema bilaterally Psychiatric: mood/affect normal Medical Decision Making Diagnostic Impression: Primary Impression: Pedal edema Additional Impression: Acute exacerbation of CHF (congestive heart failure) Qualified Codes: I50.9 - Heart failure, unspecified ER Course Patient presents with peripheral edema. BNP is slightly elevated. Not as high as last admission. He diuresed a couple liters and said he felt better. He does have a history of proximal A. fib and is currently taking Eliquis. Lungs sound clear. I see no need for admission. Patient said he felt better. Will discharge home. Last Vital Signs Date Time Temp Pulse Resp B/P (MAP) Pulse Ox O2 Delivery O2 Flow Rate FiO2 04/11/19 20:56 98.4 73 18 146/78 (100) 99 Room Air Status: improved Disposition: [facility] Condition: Improved Additional Instructions: Follow-up with your doctor in 7 days. Return if symptoms worsen. Morgan Morelos MD Apr 11, 2019 21:12
[2019-04-11] MEDS ORDERED: Ketorolac 30mg Inj IV ONE (21:15)
[2019-04-11 21:40] LABS: EOSINOPHILS % (AUTO) 2.4 % (0.0-3.0); HEMATOCRIT 31.1 % (42.0-52.0); HEMOGLOBIN 11.1 G/DL (14.2-18.0); LYMPHOCYTES % (AUTO) 32.7 % (20.0-45.0); MEAN CORPUSCULAR VOLUME 90 FL (80-99); MONOCYTES % (AUTO) 8.1 % (1.0-10.0); NEUTROPHILS % (AUTO) 55.9 % (45.0-75.0); PLATELET COUNT 201 K/UL (150-450); RED BLOOD COUNT 3.47 M/UL (4.70-6.10); RED CELL DISTRIBUTION WIDTH 10.3 % (11.6-14.8); WHITE BLOOD COUNT 6.3 K/UL (4.8-10.8)
[2019-04-11 21:48] LABS: ANION GAP 10 mmol/L (5-15); BLOOD UREA NITROGEN 34 mg/dL (7-18); CALCIUM 9.1 MG/DL (8.5-10.1); CARBON DIOXIDE 26 MMOL/L (21-32); CHLORIDE 102 MMOL/L (98-107); CREATININE 2.2 MG/DL (0.55-1.30); POTASSIUM 5.2 MMOL/L (3.5-5.1); SODIUM 138 MMOL/L (136-145)
[2019-04-11 21:49] VITALS: BP 140/73
--- NOTE | 2019-04-11 22:00 | NUR ---
ED Nurse Note: Recieved report from TAYLOR crespo to resume care, pt in bed awake, alert and oriented x 4, on cardiac monitoring, has patent saline lock, pt here from SNF with c/o bilat leg pain, pt was medicated with lasix and toradol, will monitor for med effectiveness or any acute changes.
[2019-04-11 23:00] VITALS: BP 144/69
--- NOTE | 2019-04-11 23:00 | NUR ---
ED Nurse Note: Pt continues to rest in bed, meds given effective, pt states he feels better and no leg pain, pt has patent walsh cath to leg bag, emptied 900ml of urine, lasix appears to be effective, pt stating he feels better and is resdy to go back to facility, MD informed and arangements being made for pt transport.
--- NOTE | 2019-04-11 23:42 | NUR ---
ED Nurse Note: REPORT GIVEN TO IDY FROM [facility]. ADVISED PT IS RETURNING TO FACILITY AND CLEAR TO BE D/C PER ERMD, SUMMARY OF CARE AND COPY OF LAB SENT W/ PT. BLS AT THE BEDSIDE.
[2019-04-12] VITALS: BP 144/69
--- NOTE | 2019-04-12 | NUR ---
ED Nurse Note:ER DISCHARGE NOTE: Patient is cleared to be discharged per ERMD, pt is aox4, on room air, with stable vital signs. pt was given dc and prescription instructions, pt was able to verbalize understanding, pt id band and iv site removed without complications. pt is able to ambulate with steady gait to [facility]. pt took all belongings.
== END 2019-04-12 ==
LOC: EDBD 20:51 → EMR 21:10
DX: I11.0 Hypertensive heart disease with heart failure (principal); I50.9 Heart failure, unspecified; E11.9 Type 2 diabetes mellitus without complications; R60.0 Localized edema; Z86.73 Personal history of transient ischemic attack (TIA), and cerebral infarction without residual deficits; I25.10 Atherosclerotic heart disease of native coronary artery without angina pectoris; F79 Unspecified intellectual disabilities
CPT/HCPCS: 36415; 80048; 83880; 84484; 85025; 85379; 96374; 96375; 99284; J1885; J1940

== ENCOUNTER 2019-08-26 15:33 | Emergency (ER) | payer MEDICARE, MEDICAID ==
[~2019-08-26] VITALS: Ht 154.9 cm; Wt 72.6 kg
--- NOTE | 2019-08-26 16:00 | NUR ---
ED Nurse Note: Pt BIBA d/y lower back pain and groin pain x 1 day 03/21. Pt has previous hx of ckd, chf, a fib, CAd, HTN, and hyperlipidemia. VSS, no s/s of distress noted. Pt aa o x 1, from [facility]. Awaiting ERMD At bedside
[2019-08-26 16:10] VITALS: BP 161/82
--- NOTE | 2019-08-26 16:13 | NUR ---
ED Nurse Note: ERMD at bedside
--- NOTE | 2019-08-26 16:20 | NUR ---
ED Nurse Note: US at bedside
--- NOTE | 2019-08-26 17:16 | Diagnostic Imaging Report ---
Indications: Left testicular pain Technique: Grayscale and duplex images of the scrotum Comparison: none Findings:The right testicle measures 3.cm in length. It demonstrates normal echogenicity. Normal Doppler flow. Normal epididymis. There is a tiny hydrocele The left testicle measures 3.7 cm in length. It demonstrates normal echogenicity and normal Doppler flow. A tiny cyst is seen in the lower pole of the left testicle. Uncertain as to whether this is testicular or within the mediastinum testis. This measures 3 mm diameter. Impression: No acute abnormality. No evidence of testicular torsion or epididymitis Left lower pole testicular cyst Small right hydrocele
--- NOTE | 2019-08-26 17:40 | NUR ---
ED Nurse Note: ERMD at bedside
--- NOTE | 2019-08-26 17:50 | NUR ---
ED Nurse Note: ERMD stated pt ready for discharge; Rob guy called for pt pickup; ETA [id number]
--- NOTE | 2019-08-26 17:51 | Emergency Room Report ---
History of Present Illness General Chief Complaint: Back Pain-No Injury Source: EMS Present Illness HPI 69-year-old male from assisted brought in by paramedics due to chronic back pain exacerbation as well as testicular pain x2 days. Denies any trauma to the area. Denies any penile discharge. Patient has catheter placed and is frequently changed by an in-home nurse. Denies any fever and chills, otherwise stable. Denies chest pain shortness of breath. COVID-19 risk:Travel to affect: No Has patient experienced armstrong: No Allergies: Coded Allergies: No Known Allergies (Unverified , 12/26/12) Patient History Past Medical History: see triage record Past Surgical History: none Pertinent Family History: none Immunizations: UTD Reviewed Nursing Documentation: PMH: Agreed; PSxH: Agreed Nursing Documentation-PMH Past Medical History Deferred: Pt Cognitively Impaired Past Medical History: No History, Except For Hx Cardiac Problems: Yes - HTn, A fib , CHF, CAD, hyperlipidemia Hx Hypertension: Yes Hx Pacemaker: No Hx Asthma: No Hx COPD: No Hx Diabetes: Yes Hx Cancer: No Hx Gastrointestinal Problems: Yes - vomiting Hx Cerebrovascular Accident: No Review of Systems All Other Systems: negative except mentioned in HPI Physical Exam Vital Signs Date Time Temp Pulse Resp B/P (MAP) Pulse Ox O2 Delivery O2 Flow Rate FiO2 08/26/19 15:35 98.1 69 18 161/82 (108) 98 Room Air Sp02 EP Interpretation: reviewed, normal General Appearance: no apparent distress, alert, GCS 15, non-toxic Head: normocephalic, atraumatic Eyes: bilateral eye normal inspection, bilateral eye PERRL ENT: hearing grossly normal, normal pharynx, no angioedema, normal voice Neck: full range of motion, supple/symm/no masses Respiratory: chest non-tender, lungs clear, normal breath sounds, no rhonchi, no wheezing, speaking full sentences Cardiovascular #1: regular rate, rhythm, no edema, no murmur Gastrointestinal: normal bowel sounds, non tender, soft, non-distended, no guarding, no rebound Rectal: deferred Genitourinary: no CVA tenderness Musculoskeletal: back normal Neurologic: alert, motor strength/tone normal, oriented x3, sensory intact, responsive, speech normal Psychiatric: judgement/insight normal, memory normal, mood/affect normal, no suicidal/homicidal ideation Skin: no rash Lymphatic: no adenopathy Medical Decision Making LANG Attestation All my diagnosis and treatment plans were reviewed ad discussed with my supervising physician Dr. Adamson Diagnostic Impression: Primary Impression: Chronic back pain Additional Impression: Hydrocele ER Course 69-year-old male from assisted brought in by paramedics due to chronic back pain exacerbation as well as testicular pain x2 days. Denies any trauma to the area. Denies any penile discharge. Patient has catheter placed and is frequently changed by an in-home nurse. Denies any fever and chills, otherwise stable. Denies chest pain shortness of breath. Ddx considered but are not limited to : Hydrocele, varicocele, epididymitis, testicular torsion, Vital signs: are WNL, pt. is afebrile H&PE are most consistent with: Hydrocele, chronic back pain ORDERS: Testicular ultrasound, Tylenol, Motrin ED INTERVENTIONS: Tylenol p.o. DISCHARGE: At this time pt. is stable for d/c to home. Will provide printed patient care instructions, and any necessary prescriptions. Care plan and follow up instructions have been discussed with the patient prior to discharge. Patient to follow-up primary care provider, also follow-up with urologist, continue with catheter replacement periodically at home. If worsening symptoms return to the emergency room CT/MRI/US Diagnostic Results CT/MRI/US Diagnostic Results : Imaging Test Ordered: Testicular ultrasound Impression Hydrocele Last Vital Signs Date Time Temp Pulse Resp B/P (MAP) Pulse Ox O2 Delivery O2 Flow Rate FiO2 08/26/19 16:10 98.1 69 18 161/82 98 Room Air Disposition: HOME, SELF-CARE Condition: Stable Scripts Ibuprofen* (MOTRIN*) 400 Mg Tablet 400 MG ORAL Q8H, #30 TAB 0 Refills Prov: Linda Cruz 08/26/19 Acetaminophen* (TYLENOL EXTRA STRENGTH*) 500 Mg Tablet 500 MG ORAL Q8H PRN for Prn Headache/Temp > 101, #30 TAB 0 Refills Prov: Linda Cruz 08/26/19 Patient Instructions: Back Pain, Adult, Hydrocele, Adult Additional Instructions: Take medication as directed, follow-up primary care provider, increase oral hydration, if worsening symptoms return to the emergency room Linda Cruz Aug 26, 2019 17:51
[2019-08-26] MEDS ORDERED: IBUPROFEN400 MG ORAL (17:52)
[2019-08-26] MEDS ORDERED: TYLENOL EXTRA500 MG ORAL (17:52)
--- NOTE | 2019-08-26 18:00 | NUR ---
ED Nurse Note: All medications administered; no s/s of distress noted.no adverse reactions noted.
[2019-08-26 18:50] VITALS: BP 131/71
[2019-08-26 18:58] VITALS: BP 131/71
--- NOTE | 2019-08-26 18:58 | NUR ---
ER DISCHARGE NOTE: Patient is cleared to be discharged to [facility] via [facility] per ERMD, pt is aox4, on room air, with stable vital signs. pt was given dc and prescription instructions, pt was able to verbalize understanding, pt id band and iv site removed without complications. pt is able to ambulate with steady gait. pt took all belongings. [facility] company receieved report on pt and left with pt in stable condition
== END 2019-08-26 18:58 | disposition home or self-care (01) ==
LOC: EDBD 15:33 → EMR 16:30
DX: N43.3 Hydrocele, unspecified (principal); G89.29 Other chronic pain; E78.5 Hyperlipidemia, unspecified; I11.0 Hypertensive heart disease with heart failure; I50.9 Heart failure, unspecified; E11.9 Type 2 diabetes mellitus without complications
CPT/HCPCS: 76870; 99284